=== PATIENT | female | born 1960 | race Caucasian/White ===

== ENCOUNTER 2017-08-16 13:51 | Observation (INO) | payer MEDICAID ==
[2017-08-16] MEDS ORDERED: NITROGLYCERIN OINT 1 INCH/GM PACKET TOPICAL STA (14:33)
[2017-08-16] MEDS ORDERED: ASPIRIN 81 MG PO STA (14:33)
--- NOTE | 2017-08-16 14:43 | ED ---
General Adult HPI - General Chief complaint: Chest Pain Stated complaint: chest heaviness/high blood pressure Time Seen by Provider: 08/16/17 13:55 Source: patient, RN notes reviewed Mode of arrival: ambulatory Limitations: no limitations - History of Present Illness Initial comments: This is a 57-year-old female who has a past medical history significant for high blood pressure and smoking. Patient states today at 12:30 she started to experience chest pain radiated to her back she became nauseated and it continued so she came to the emergency department. Patient denies any palpitations. Patient denies shortness of breath or difficulty breathing. Patient states the pain is continuing currently. Patient denies any recent fever chills or cough. Patient denies lightheadedness dizziness or near- syncopal episode. Patient denies headache patient denies numbness weakness. Patient denies abdominal pain patient denies any vomiting or diarrhea. - Related Data Home Medications Medication Instructions Recorded Confirmed ALPRAZolam [Xanax] 0.5 mg PO HS PRN 08/16/17 08/16/17 Aspirin EC [Ecotrin Low Dose] 81 mg PO DAILY 08/16/17 08/16/17 Butalb/APAP/Caff 50-325-40Mg 1 - 2 tab PO Q4H PRN 08/16/17 08/16/17 [Fioricet 50-325-40] Celecoxib [CeleBREX] 200 mg PO DAILY PRN 08/16/17 08/16/17 Citalopram Hydrobromide [CeleXA] 20 mg PO DAILY 08/16/17 08/16/17 HYDROcodone/APAP 7.5-325MG [[place] 1 tab PO TID PRN 08/16/17 08/16/17 7.5-325] Losartan/Hydrochlorothiazide 1 tab PO DAILY 08/16/17 08/16/17 [Hyzaar 50-12.5 Tablet] Metoclopramide [Reglan] 10 mg PO QID PRN 08/16/17 08/16/17 Nitroglycerin Sl Tabs [Nitrostat] 0.4 mg SUBLINGUAL Q5M PRN 08/16/17 08/16/17 Ondansetron [Zofran] 4 mg PO Q6H PRN 08/16/17 08/16/17 Allergies Allergy/AdvReac Type Severity Reaction Status Date / Time aspirin AdvReac Nausea Verified 08/16/17 14:36 Review of Systems ROS Statement: Those systems with pertinent positive or pertinent negative responses have been documented in the HPI. ROS Other: All systems not noted in ROS Statement are negative. Past Medical History Past Medical History: GERD/Reflux, Hypertension Additional Past Medical History / Comment(s): Hernia, diverticulitous History of Any Multi-Drug Resistant Organisms: None Reported Additional Past Surgical History / Comment(s): partial hysto Past Psychological History: No Psychological Hx Reported Smoking Status: Current every day smoker Past Alcohol Use History: Occasional Past Drug Use History: None Reported General Exam - General Exam Comments Initial Comments: GENERAL: Patient is well-developed and well-nourished. Patient is nontoxic and well- hydrated and is in mild distress. ENT: Neck is soft and supple. No significant lymphadenopathy is noted. Oropharynx is clear. Moist mucous membranes. Neck has full range of motion without eliciting any pain. EYES: The sclera were anicteric and conjunctiva were pink and moist. Extraocular movements were intact and pupils were equal round and reactive to light. Eyelids were unremarkable. PULMONARY: Unlabored respirations. Good breath sounds bilaterally. No audible rales rhonchi or wheezing was noted. CARDIOVASCULAR: There is a regular rate and rhythm without any murmurs gallops or rubs. ABDOMEN: Soft and nontender with normal bowel sounds. No palpable organomegaly was noted. There is no palpable pulsatile mass. SKIN: Skin is clear with no lesions or rashes and otherwise unremarkable. NEUROLOGIC: Patient is alert and oriented x3. Cranial nerves II through XII are grossly intact. Motor and sensory are also intact. Normal speech, volume and content. Symmetrical smile. MUSCULOSKELETAL: Normal extremities with adequate strength and full range of motion. No lower extremity swelling or edema. No calf tenderness. LYMPHATICS: No significant lymphadenopathy is noted PSYCHIATRIC: Normal psychiatric evaluation. Normal interpersonal interactions appears functionally intact in deals appropriately with others. Limitations: no limitations Course Vital Signs 08/16/17 08/16/17 08/16/17 13:52 14:29 15:18 Temperature 98.6 F Pulse Rate 105 H 96 Pulse Rate [ 96 Sitting Apical] Respiratory 18 18 Rate Blood Pressure 171/85 136/85 O2 Sat by Pulse 96 96 Oximetry Medical Decision Making - Medical Decision Making EKG shows sinus tachycardia at 101 bpm NV interval is 174 QRS is 118 QT interval 358 QTC is 464. Patient's EKG shows a right bundle gunner block. There are no old EKGs to compare to. Chest x-ray shows no acute abnormality. Patient continues to have some chest pain while in the ER that in combination with her smoking high blood pressure history I placed the patient on heparin because it qualifies for unstable angina. I spoke with Dr. Mcdaniel he agreed to admit the patient admitted the patient I consult to cardiology I continued heparin and aspirin Nitropaste on the floor. - Lab Data Result diagrams: 08/16/17 14:25 08/16/17 14:25 Lab Results 08/16/17 08/16/17 08/16/17 Range/Units 14:25 14:25 14:25 WBC 7.3 (3.8-10.6) k/uL RBC 4.45 (3.80-5.40) m/uL Hgb 14.1 (11.4-16.0) gm/dL Hct 42.7 (34.0-46.0) % MCV 95.9 (80.0-100.0) fL MCH 31.7 (25.0-35.0) pg MCHC 33.0 (31.0-37.0) g/dL RDW 12.9 (11.5-15.5) % Plt Count 225 (150-450) k/uL Neutrophils % 67 % Lymphocytes % 26 % Monocytes % 5 % Eosinophils % 1 % Basophils % 1 % Neutrophils # 4.8 (1.3-7.7) k/uL Lymphocytes # 1.9 (1.0-4.8) k/uL Monocytes # 0.3 (0-1.0) k/uL Eosinophils # 0.1 (0-0.7) k/uL Basophils # 0.0 (0-0.2) k/uL PT (9.0-12.0) sec INR (<1.2) APTT (22.0-30.0) sec Sodium 140 (137-145) mmol/L Potassium 4.2 (3.5-5.1) mmol/L Chloride 105 (98-107) mmol/L Carbon Dioxide 23 (22-30) mmol/L Anion Gap 12 mmol/L BUN 9 (7-17) mg/dL Creatinine 0.83 (0.52-1.04) mg/dL Est GFR (MDRD) Af Amer >60 (>60 ml/min/1.73 sqM) Est GFR (MDRD) Non-Af >60 (>60 ml/min/1.73 sqM) Glucose 108 H (74-99) mg/dL Calcium 10.2 (8.4-10.2) mg/dL Magnesium 1.7 (1.6-2.3) mg/dL Total Bilirubin 0.3 (0.2-1.3) mg/dL AST 22 (14-36) U/L ALT 27 (9-52) U/L Alkaline Phosphatase 105 (38-126) U/L Total Creatine Kinase 76 (30-135) U/L CK-MB (CK-2) 0.5 (0.0-2.4) ng/mL CK-MB (CK-2) Rel Index 0.7 Troponin I <0.012 (0.000-0.034) ng/mL Total Protein 7.6 (6.3-8.2) g/dL Albumin 4.7 (3.5-5.0) g/dL 08/16/17 Range/Units 14:25 WBC (3.8-10.6) k/uL RBC (3.80-5.40) m/uL Hgb (11.4-16.0) gm/dL Hct (34.0-46.0) % MCV (80.0-100.0) fL MCH (25.0-35.0) pg MCHC (31.0-37.0) g/dL RDW (11.5-15.5) % Plt Count (150-450) k/uL Neutrophils % % Lymphocytes % % Monocytes % % Eosinophils % % Basophils % % Neutrophils # (1.3-7.7) k/uL Lymphocytes # (1.0-4.8) k/uL Monocytes # (0-1.0) k/uL Eosinophils # (0-0.7) k/uL Basophils # (0-0.2) k/uL PT 9.8 (9.0-12.0) sec INR 1.0 (<1.2) APTT 25.6 (22.0-30.0) sec Sodium (137-145) mmol/L Potassium (3.5-5.1) mmol/L Chloride (98-107) mmol/L Carbon Dioxide (22-30) mmol/L Anion Gap mmol/L BUN (7-17) mg/dL Creatinine (0.52-1.04) mg/dL Est GFR (MDRD) Af Amer (>60 ml/min/1.73 sqM) Est GFR (MDRD) Non-Af (>60 ml/min/1.73 sqM) Glucose (74-99) mg/dL Calcium (8.4-10.2) mg/dL Magnesium (1.6-2.3) mg/dL Total Bilirubin (0.2-1.3) mg/dL AST (14-36) U/L ALT (9-52) U/L Alkaline Phosphatase (38-126) U/L Total Creatine Kinase (30-135) U/L CK-MB (CK-2) (0.0-2.4) ng/mL CK-MB (CK-2) Rel Index Troponin I (0.000-0.034) ng/mL Total Protein (6.3-8.2) g/dL Albumin (3.5-5.0) g/dL Critical Care Time Critical Care Time: Yes Total Critical Care Time: 35 Disposition Clinical Impression: Unstable angina pectoris Disposition: ADMITTED IP TO THIS HOSP Referrals: Nolan Mcdaniel DO [Primary Care Provider] - 1-2 days Time of Disposition: 16:41
[2017-08-16 14:45] LABS: Basophils % (A) 1 %; Eosinophils # (A) 0.1 k/uL (0-0.7); Eosinophils % (A) 1 %; HCT 42.7 % (34.0-46.0); HGB 14.1 gm/dL (11.4-16.0); Lymphocytes # (A) 1.9 k/uL (1.0-4.8); Lymphocytes % (A) 26 %; MCH 31.7 pg (25.0-35.0); MCV 95.9 fL (80.0-100.0); Mean Platelet Volume 7.4; Monocytes # (A) 0.3 k/uL (0-1.0); Monocytes % (A) 5 %; Neutrophils # (A) 4.8 k/uL (1.3-7.7); Neutrophils % (A) 67 %; Platelet Count 225 k/uL (150-450); RBC 4.45 m/uL (3.80-5.40); RDW 12.9 % (11.5-15.5); WBC 7.3 k/uL (3.8-10.6)
[2017-08-16 14:54] LABS: ALT 27 U/L (9-52); AST 22 U/L (14-36); Albumin 4.7 g/dL (3.5-5.0); Alkaline Phosphatase 105 U/L (38-126); Anion Gap 12 mmol/L; Blood Urea Nitrogen 9 mg/dL (7-17); Calcium 10.2 mg/dL (8.4-10.2); Carbon Dioxide 23 mmol/L (22-30); Chloride 105 mmol/L (98-107); Glucose 108 mg/dL (74-99); Magnesium 1.7 mg/dL (1.6-2.3); Partial Thromboplastin Time 25.6 sec (22.0-30.0); Potassium 4.2 mmol/L (3.5-5.1); Prothrombin Time 9.8 sec (9.0-12.0); Sodium 140 mmol/L (137-145); Total Bilirubin 0.3 mg/dL (0.2-1.3); Total Protein 7.6 g/dL (6.3-8.2)
--- NOTE | 2017-08-16 15:04 | XR ---
EXAMINATION TYPE: XR chest 2V DATE OF EXAM: 08/16/2017 COMPARISON: 05/10/2011 HISTORY: Shortness of breath TECHNIQUE: Frontal and lateral views of the chest are obtained. FINDINGS: Scattered senescent parenchymal changes noted. No evidence for infiltrate. No evidence for atelectasis. Heart size is stable. Mediastinal structures are stable and grossly unremarkable. No evidence for hilar prominence. Degenerative changes dorsal spine. IMPRESSION: 1. No evidence for acute pulmonary disease.
[2017-08-16 15:09] LABS: Creatine Kinase 76 U/L (30-135)
[2017-08-16 15:23] LABS: Creatine Kinase MB 0.5 ng/mL (0.0-2.4); Troponin I <0.012 ng/mL (0.000-0.034)
[2017-08-16] MEDS ORDERED: HEPARIN SODIUM,PORCINE 5,000 UNIT/ML 1 ML VIAL IV ONE (16:37)
[2017-08-16] MEDS ORDERED: MORPHINE SULFATE 2 MG/ML SYRINGE IVP ONE (16:39)
[2017-08-16] MEDS ORDERED: NITROGLYCERIN SL TABS 0.4 MG TAB SUBLINGUAL PRN (16:41)
[2017-08-16] MEDS ORDERED: HEPARIN SOD,PORK IN 0.45% NACL 25,000 UNIT in 0.45% NACL 1 500ML.BAG IV SCH (16:45)
[2017-08-16 18:01] VITALS: RESP 18
[2017-08-16] MEDS ORDERED: MELOXICAM 7.5 MG TAB PO PRN (18:34)
[2017-08-16] MEDS ORDERED: METOCLOPRAMIDE 10 MG TAB PO PRN (18:34)
[2017-08-16] MEDS ORDERED: BUTALB/APAP/CAFF 50-325-40MG TAB PO PRN (18:34)
[2017-08-16] MEDS ORDERED: ALPRAZolam 0.5 MG TAB PO PRN (18:34)
[2017-08-16] MEDS: NITROGLYCERIN OINT 1 INCH/GM PACKET TOPICAL SCH (19:26)
[2017-08-16] MEDS: HYDROcodone/APAP 7.5-325MG 1 EACH TAB PO PRN (19:30)
[2017-08-16] MEDS: NICOTINE 21MG/24HR PATCH TRANSDERM SCH (20:56)
[2017-08-16 21:39] LABS: Creatine Kinase 58 U/L (30-135)
[2017-08-16 21:53] LABS: Creatine Kinase MB 0.3 ng/mL (0.0-2.4); Troponin I <0.012 ng/mL (0.000-0.034)
[2017-08-17] MEDS: NITROGLYCERIN OINT 1 INCH/GM PACKET TOPICAL SCH ×2 (00:57→05:56)
[2017-08-17] MEDS: HYDROcodone/APAP 7.5-325MG 1 EACH TAB PO PRN ×2 (02:28→11:29)
[2017-08-17 03:52] LABS: Creatine Kinase 54 U/L (30-135)
[2017-08-17 03:54] LABS: Cholesterol 160 mg/dL (<200); HDL Cholesterol 45 mg/dL (40-60); LDL Cholesterol,Calculated 82 mg/dL (0-99); Triglycerides 165 mg/dL (<150)
[2017-08-17 04:06] LABS: Creatine Kinase MB 0.4 ng/mL (0.0-2.4); Troponin I <0.012 ng/mL (0.000-0.034)
[2017-08-17] MEDS ORDERED: LOSARTAN-HCTZ 50-12.5 MG 1 EACH TAB PO SCH (09:00)
[2017-08-17] MEDS ORDERED: CITALOPRAM HYDROBROMIDE 20 MG TAB PO SCH (09:00)
[2017-08-17] MEDS ORDERED: ASPIRIN 325 MG TAB PO SCH (09:00)
[2017-08-17] MEDS ORDERED: ASPIRIN 81 MG PO SCH (09:00)
--- NOTE | 2017-08-17 10:01 | P.CRDCN ---
History of Present Illness Consult date: 08/17/17 History of present illness: Mrs. Fuentes is a pleasant 57-year-old female with past medical history significant for hypertension, gastroesophageal reflux disease and chronic tobacco abuse. She denies history of coronary artery disease and has never seen a pharmacy clinical coordinator for any reason. Over the previous couple of weeks she has been having elevated blood pressures at home as well as tingling to the left fingers and hand. This is was new for her. She presented to Dr. Mcdaniel' office and was started on hyzaar and scheduled for an outpatient stress test. Yesterday while at rest she developed pain in the mid-sternal region that radiated through to her mid-back. She denies associated shortness of breath, dizziness, palpitations, diaphoresis, nausea or vomiting. The pain lasted for a few hours and ultimately went away on its own after arriving at the hospital. Blood pressure on arrival 171/85 but has come down since admission to 128/65 this morning. She also complains of diffuse abdominal pain that has been intermittent over the previous few months. Medical team is checking an ultrasound. EKG reveals right bundle branch block with possible left atrial enlargement. There is no old for comparison. Chest xray is negative for an acute cardiopulmonary process. Laboratory data reviewed, hemoglobin 14.1, platelets 225, potassium 4.2, magnesium 1.7, creatinine 0.83, cardiac enzymes negative 3, LDL 82, HDL 45. There is no old stress test, echocardiogram or catheterization to review. Review of Systems At the time of my exam: CONSTITUTIONAL: Denies fever. Denies chills. EYES: Denies blurred vision. Denies vision changes. Denies eye pain. EARS, NOSE, MOUTH & THROAT: Denies headache. Denies sore throat. Denies ear pain. CARDIOVASCULAR: Denies chest pain. Denies shortness of breath. Denies orthopnea. Denies PND. Denies palpitations. RESPIRATORY: Denies cough. GASTROINTESTINAL: Complains of abdominal pain. Denies diarrhea. Denies constipation. Denies nausea. Denies vomiting. MUSCULOSKELETAL: Denies myalgias. INTEGUMENTARY: Denies pruitis. Denies rash. NEUROLOGIC: Denies numbness. Denies tingling. Denies weakness. PSYCHIATRIC: Denies anxiety. Denies depression. ENDOCRINE: Denies fatigue. Denies weight change. Denies polydipsia. Denies polyurina. GENITOURINARY: Denies burning, hematuria or urgency with micturation. HEMATOLOGIC: Denies history of anemia. Denies bleeding. Past Medical History Past Medical History: GERD/Reflux, Hypertension, Osteoarthritis (OA), Pneumonia Additional Past Medical History / Comment(s): , gastroparesis. "was told she had shingles as a baby and was hospitalizes" hiatal Hernia, diverticulitous, coloitis, cervical caner 1989(had laser sx) endometreosis(partail hysterectomy done) History of Any Multi-Drug Resistant Organisms: None Reported Additional Past Surgical History / Comment(s): partial hysterectomy, egd/ colonoscopy/polypectomy-benign, few d&c's from miscarriages,laser sx for cervical cancer Past Anesthesia/Blood Transfusion Reactions: No Reported Reaction Smoking Status: Current every day smoker - Past Family History Mother Family Medical History: Cancer Additional Family Medical History / Comment(s): lung/colon cancer Father Family Medical History: AFIB, Congestive Heart Failure (CHF), COPD, Hypertension , Osteoarthritis (OA) Medications and Allergies Home Medications Medication Instructions Recorded Confirmed Type ALPRAZolam [Xanax] 0.5 mg PO HS PRN 08/16/17 08/16/17 History Aspirin EC [Ecotrin Low Dose] 81 mg PO DAILY 08/16/17 08/16/17 History Butalb/APAP/Caff 50-325-40Mg 1 - 2 tab PO Q4H PRN 08/16/17 08/16/17 History [Fioricet 50-325-40] Celecoxib [CeleBREX] 200 mg PO DAILY PRN 08/16/17 08/16/17 History Citalopram Hydrobromide [CeleXA] 20 mg PO DAILY 08/16/17 08/16/17 History HYDROcodone/APAP 7.5-325MG [[place] 1 tab PO TID PRN 08/16/17 08/16/17 History 7.5-325] Losartan/Hydrochlorothiazide 1 tab PO DAILY 08/16/17 08/16/17 History [Hyzaar 50-12.5 Tablet] Metoclopramide [Reglan] 10 mg PO QID PRN 08/16/17 08/16/17 History Nitroglycerin Sl Tabs [Nitrostat] 0.4 mg SUBLINGUAL Q5M PRN 08/16/17 08/16/17 History Ondansetron [Zofran] 4 mg PO Q6H PRN 08/16/17 08/16/17 History Allergies Allergy/AdvReac Type Severity Reaction Status Date / Time aspirin AdvReac Nausea Verified 08/16/17 14:36 Physical Exam Vitals: Vital Signs Temp Pulse Pulse Pulse Resp BP BP 08/17/17 07:54 98.2 F 75 18 128/65 08/17/17 04:00 97.9 F 74 18 105/59 08/16/17 23:51 97.6 F 73 18 105/60 08/16/17 23:11 70 18 08/16/17 20:00 82 18 08/16/17 19:34 97.8 F 82 18 120/66 08/16/17 17:40 98.0 F 88 18 126/71 08/16/17 17:03 97.9 F 89 16 148/79 08/16/17 17:01 98 F 87 18 106/56 08/16/17 16:41 08/16/17 15:18 96 18 136/85 08/16/17 14:29 96 08/16/17 13:52 98.6 F 105 H 18 171/85 Pulse Ox 08/17/17 07:54 97 08/17/17 04:00 98 08/16/17 23:51 97 08/16/17 23:11 08/16/17 20:00 08/16/17 19:34 93 L 08/16/17 17:40 97 08/16/17 17:03 97 08/16/17 17:01 97 08/16/17 16:41 96 08/16/17 15:18 96 08/16/17 14:29 08/16/17 13:52 96 Intake and Output 08/16/17 08/17/17 08/17/17 22:59 06:59 14:59 Intake Total 440 122.032 Balance 440 122.032 Intake: Intake, IV Titration 122.032 Amount Heparin Sod,Pork in 0.45% 122.032 NaCl 25,000 unit In 0.45 % NaCl 1 500ml.bag @ 12 UNITS/KG/HR 15.78 mls/hr IV .Q24H [facility] Rx#: [id number] Oral 240 Other 200 Other: # Voids 3 Weight 68.5 kg Blood pressure 120/65 heart rate 75 afebrile GENERAL: This is a 57-year-old female in no apparent distress at the time of my examination. HEENT: Head is atraumatic, normocephalic. Pupils are equal, round. Sclerae anicteric. Conjunctivae are clear. Mucous membranes of the mouth are moist. Neck is supple. There is no jugular venous distention. No carotid bruit is heard. LUNGS: Clear to auscultation no wheezes, rales or rhonchi. Minimal chest wall tenderness is noted on palpation. HEART: Regular rate and rhythm without murmurs, rubs or gallops. S1 and S2 heard. ABDOMEN: Soft, nontender. Bowel sounds are heard. No organomegaly noted. EXTREMITIES: No evidence of peripheral edema and no calf tenderness noted. VASCULAR: 2+ radial and dorsalis pedis pulses, no clubbing. NEUROLOGIC: Patient is awake, alert and oriented x3. Results 08/16/17 14:25 08/16/17 14:25 Cardiac Enzymes 08/16/17 08/16/17 08/16/17 Range/Units 14:25 14:25 20:43 AST 22 (14-36) U/L CK-MB (CK-2) 0.5 0.3 (0.0-2.4) ng/mL Troponin I <0.012 <0.012 (0.000-0.034) ng/mL 08/17/17 Range/Units 02:54 AST (14-36) U/L CK-MB (CK-2) 0.4 (0.0-2.4) ng/mL Troponin I <0.012 (0.000-0.034) ng/mL Coagulation 08/16/17 08/16/17 08/17/17 Range/Units 14:25 23:21 06:52 PT 9.8 (9.0-12.0) sec APTT 25.6 40.8 H 44.0 H (22.0-30.0) sec Lipids 08/17/17 Range/Units 02:54 Triglycerides 165 H (<150) mg/dL Cholesterol 160 (<200) mg/dL HDL Cholesterol 45 (40-60) mg/dL CBC 08/16/17 Range/Units 14:25 WBC 7.3 (3.8-10.6) k/uL RBC 4.45 (3.80-5.40) m/uL Hgb 14.1 (11.4-16.0) gm/dL Hct 42.7 (34.0-46.0) % Plt Count 225 (150-450) k/uL Comprehensive Metabolic Panel 08/16/17 Range/Units 14:25 Sodium 140 (137-145) mmol/L Potassium 4.2 (3.5-5.1) mmol/L Chloride 105 (98-107) mmol/L Carbon Dioxide 23 (22-30) mmol/L BUN 9 (7-17) mg/dL Creatinine 0.83 (0.52-1.04) mg/dL Glucose 108 H (74-99) mg/dL Calcium 10.2 (8.4-10.2) mg/dL AST 22 (14-36) U/L ALT 27 (9-52) U/L Alkaline Phosphatase 105 (38-126) U/L Total Protein 7.6 (6.3-8.2) g/dL Albumin 4.7 (3.5-5.0) g/dL Current Medications Generic Name Dose Route Start Last Admin Trade Name Freq PRN Reason Stop Dose Admin Acetaminophen/Butalbital/Caffeine 2 each 08/16/17 18:34 Fioricet 50-325-40 PO Q4H PRN Headache Hydrocodone Bitart/Acetaminophen 1 each 08/16/17 18:34 08/17/17 02:28 [place] 7.5-325 PO 1 each TID PRN Administration Pain Alprazolam 0.5 mg 08/16/17 18:34 08/16/17 20:59 Xanax PO 0.5 mg HS PRN Administration sleep/anxiety Aspirin 81 mg 08/17/17 09:00 Aspirin PO DAILY [facility] Citalopram Hydrobromide 20 mg 08/17/17 09:00 Celexa PO DAILY [facility] HCTZ/Losartan Potassium 1 each 08/17/17 09:00 Hyzaar 50-12.5 PO DAILY [facility] Heparin Sodium/Sodium Chloride 500 mls @ 15.78 mls/hr 08/16/17 16:45 00:59 25,000 unit/ Sodium Chloride IV 14.06 units/kg/hr .Q24H [facility] 18.5 mls/hr Protocol Titration 12 UNITS/KG/HR Meloxicam 7.5 mg 08/16/17 18:34 Mobic PO DAILY PRN Pain Metoclopramide HCl 10 mg 08/16/17 18:34 Reglan PO QID PRN Nausea Nicotine 1 patch 08/16/17 19:45 08/16/17 20:56 Habitrol 21mg/24hr Patch TRANSDERM 1 patch DAILY [facility] Administration Nitroglycerin 1 inch 08/16/17 18:00 08/17/17 05:56 Nitro-Bid Oint TOPICAL Not Given Q6HR [facility] Nitroglycerin 0.4 mg 08/16/17 16:41 Nitrostat SUBLINGUAL Q5M PRN Chest Pain Intake and Output 08/16/17 08/17/17 08/17/17 22:59 06:59 14:59 Intake Total 440 122.032 Balance 440 122.032 Intake: Intake, IV Titration 122.032 Amount Heparin Sod,Pork in 0.45% 122.032 NaCl 25,000 unit In 0.45 % NaCl 1 500ml.bag @ 12 UNITS/KG/HR 15.78 mls/hr IV .Q24H [facility] Rx#: [id number] Oral 240 Other 200 Other: # Voids 3 Weight 68.5 kg 08/16/17 14:25 08/16/17 14:25 Assessment and Plan Assessment: ASSESSMENT 1. Chest pain, atypical. Acute coronary event has been ruled out. 2. Hypertension 3. Chronic tobacco abuse PLAN Discontinue heparin and nitropaste. Obtain 2D echocardiogram and doppler study to assess cardiac structure and function. Perform stress echocardiogram to rule out stress induced ischemia. If above diagnostic testing is normal she is stable from a cardiac perspective. Thank you kindly for this consultation. The above impression and plan of care have been discussed and directed by the signing physician. Bibi Dennis, nurse practitioner, acting as a scribe for signing physician.
--- NOTE | 2017-08-17 10:17 | ECHOF ---
Referral Reason:chest pain MEASUREMENTS -------- HEIGHT: 154.9 cm WEIGHT: 68.5 kg BP: 128/65 RVIDd: 2.6 cm (< 3.3) IVSd: 1.1 cm (0.6 - 1.1) LVIDd: 4.2 cm (3.9 - 5.3) LVPWd: 1.2 cm (0.6 - 1.1) IVSs: 1.6 cm LVIDs: 2.6 cm LVPWs: 1.5 cm LA Diam: 2.7 cm (2.7 - 3.8) LAESV Index (A-L): 19.87 ml/m Ao Diam: 2.9 cm (2.0 - 3.7) AV Cusp: 1.9 cm (1.5 - 2.6) MV EXCURSION: 16.638 mm (> 18.000) MV EF SLOPE: 126 mm/s (70 - 150) EPSS: 0.5 cm MV E Donald: 0.75 m/s MV DecT: 182 ms MV A Donald: 0.80 m/s MV E/A Ratio: 0.94 FINDINGS -------- Sinus rhythm. This was a technically good study. The left ventricular size is normal. There is borderline concentric left ventricular hypertrophy. Overall left ventricular systolic function is normal with, an EF between 55 - 60 %. The right ventricle is normal in size. Normal LA size by volume 22+/-6 ml/m2. The right atrium is normal in size. The aortic valve is trileaflet and appears structurally normal. The mitral valve is normal. The tricuspid valve appears structurally normal. There is no pulmonic regurgitation present. The aortic root size is normal. Normal inferior vena cava with normal inspiratory collapse consistent with estimated right atrial pre ssure of 5 mmHg. There is no pericardial effusion. CONCLUSIONS -------- 1. Sinus rhythm. 2. This was a technically good study. 3. The left ventricular size is normal. 4. There is borderline concentric left ventricular hypertrophy. 5. Overall left ventricular systolic function is normal with, an EF between 55 - 60 %. 6. The right ventricle is normal in size. 7. Normal LA size by volume 22+/-6 ml/m2. 8. The right atrium is normal in size. 9. The aortic valve is trileaflet and appears structurally normal. 10. The mitral valve is normal. 11. The tricuspid valve appears structurally normal. 12. There is no pulmonic regurgitation present. 13. The aortic root size is normal. 14. Normal inferior vena cava with normal inspiratory collapse consistent with estimated right atrial pressure of 5 mmHg. 15. There is no pericardial effusion. SALES RESEARCH ANALYST: Monae Vidal RDCS
[2017-08-17] MEDS ORDERED: FAMOTIDINE 20 MG TAB PO STA (10:22)
--- NOTE | 2017-08-17 10:23 | P.HPIM ---
History of Present Illness H&P Date: 08/17/17 Chief Complaint: Chest pain 57-year-old female who presented to emergency room in December or 2017 with a chief complaint of chest pain. The patient was seen recently by her primary care physician for complaints of intermittent chest pain 2-3 months. She was scheduled for an outpatient stress test. However, the patient began to have more intense chest pain yesterday and presents to emergency room for further evaluation. She states the pain is midsternal and does not radiate. She also complains of abdominal pain and epigastric pain. She denies shortness of breath. Denies diaphoresis. Denies nausea or vomiting. Denies dizziness or lightheadedness. The patient has a history of gastroesophageal reflux disease, hypertension, and diverticulosis. She has a history of multiple colitis flare ups. She is a current everyday cigarette smoker. In the emergency room, EKG was completed revealing sinus tachycardia with a right bundle ranch block. Chest x-ray was performed which was negative for an acute process. The patient was admitted to observation unit under the care of Dr. Mcdaniel. Consultations were placed to cardiology. She was started on a heparin drip. Laboratory results in the emergency room revealed white count of 7.3, hemoglobin 14.1, platelet count 225, INR 1.0, sodium 140, potassium 4.2, BUN 9, creatinine 0.83, and magnesium 1.7. Troponins have been negative 3. Lipid panel reveals triglycerides 165, cholesterol 160, LDL 82, and HDL 45. Review of Systems GENERAL: Patient denies fever. Denies chills. EYES: Denies blurred vision. Denies vision changes. Denies eye pain. EARS, NOSE, MOUTH, & THROAT: Denies headache. Denies sore throat. Denies ear pain. RESPIRATORY: Denies cough. Denies shortness of breath. Denies sputum production. Denies hemoptysis. CARDIOVASCULAR: Positive for intermittent midsternal chest pain. Denies palpitations. Denies arrhythmias. GASTROINTESTINAL: Positive for history of GERD. Positive for epigastric pain and abdominal pain. Denies diarrhea. Denies constipation. Denies nausea. Denies vomiting. Denies blood in the stool. GENITOURINARY: Denies urinary frequency. Denies burning. Denies dysuria. Denies cloudy urine. Denies blood in the urine. MUSCULOSKELETAL: Denies myalgias. Denies joint swelling. Denies decreased range of motion beyond patients baseline. INTEGUMENTARY: Denies pruitis. Denies rash. PSYCHIATRIC: Positive for history of anxiety. Denies suicidal or homicial ideations. ENDOCRINE: Denies weight change. Denies polydipsia. Denies polyuria. HEMATOLOGIC: Denies bleeding disorders. Past Medical History Past Medical History: GERD/Reflux, Hypertension, Osteoarthritis (OA), Pneumonia Additional Past Medical History / Comment(s): , gastroparesis. "was told she had shingles as a baby and was hospitalizes" hiatal Hernia, diverticulitous, coloitis, cervical caner 1989(had laser sx) endometreosis(partail hysterectomy done) History of Any Multi-Drug Resistant Organisms: None Reported Additional Past Surgical History / Comment(s): partial hysterectomy, egd/ colonoscopy/polypectomy-benign, few d&c's from miscarriages,laser sx for cervical cancer Past Anesthesia/Blood Transfusion Reactions: No Reported Reaction Smoking Status: Current every day smoker - Past Family History Mother Family Medical History: Cancer Additional Family Medical History / Comment(s): lung/colon cancer Father Family Medical History: AFIB, Congestive Heart Failure (CHF), COPD, Hypertension , Osteoarthritis (OA) Medications and Allergies Home Medications Medication Instructions Recorded Confirmed Type ALPRAZolam [Xanax] 0.5 mg PO HS PRN 08/16/17 08/16/17 History Aspirin EC [Ecotrin Low Dose] 81 mg PO DAILY 08/16/17 08/16/17 History Butalb/APAP/Caff 50-325-40Mg 1 - 2 tab PO Q4H PRN 08/16/17 08/16/17 History [Fioricet 50-325-40] Celecoxib [CeleBREX] 200 mg PO DAILY PRN 08/16/17 08/16/17 History Citalopram Hydrobromide [CeleXA] 20 mg PO DAILY 08/16/17 08/16/17 History HYDROcodone/APAP 7.5-325MG [[place] 1 tab PO TID PRN 08/16/17 08/16/17 History 7.5-325] Losartan/Hydrochlorothiazide 1 tab PO DAILY 08/16/17 08/16/17 History [Hyzaar 50-12.5 Tablet] Metoclopramide [Reglan] 10 mg PO QID PRN 08/16/17 08/16/17 History Nitroglycerin Sl Tabs [Nitrostat] 0.4 mg SUBLINGUAL Q5M PRN 08/16/17 08/16/17 History Ondansetron [Zofran] 4 mg PO Q6H PRN 08/16/17 08/16/17 History Allergies Allergy/AdvReac Type Severity Reaction Status Date / Time aspirin AdvReac Nausea Verified 08/16/17 14:36 Physical Exam Vitals: Vital Signs Temp Pulse Pulse Pulse Resp BP BP 08/17/17 07:54 98.2 F 75 18 128/65 08/17/17 04:00 97.9 F 74 18 105/59 08/16/17 23:51 97.6 F 73 18 105/60 08/16/17 23:11 70 18 08/16/17 20:00 82 18 08/16/17 19:34 97.8 F 82 18 120/66 08/16/17 17:40 98.0 F 88 18 126/71 08/16/17 17:03 97.9 F 89 16 148/79 08/16/17 17:01 98 F 87 18 106/56 08/16/17 16:41 08/16/17 15:18 96 18 136/85 08/16/17 14:29 96 08/16/17 13:52 98.6 F 105 H 18 171/85 Pulse Ox 08/17/17 07:54 97 08/17/17 04:00 98 08/16/17 23:51 97 08/16/17 23:11 08/16/17 20:00 08/16/17 19:34 93 L 08/16/17 17:40 97 08/16/17 17:03 97 08/16/17 17:01 97 08/16/17 16:41 96 08/16/17 15:18 96 08/16/17 14:29 08/16/17 13:52 96 Intake and Output 08/16/17 08/17/17 08/17/17 22:59 06:59 14:59 Intake Total 440 122.032 Balance 440 122.032 Intake: Intake, IV Titration 122.032 Amount Heparin Sod,Pork in 0.45% 122.032 NaCl 25,000 unit In 0.45 % NaCl 1 500ml.bag @ 12 UNITS/KG/HR 15.78 mls/hr IV .Q24H LARISA Rx#: [id number] Oral 240 Other 200 Other: # Voids 3 Weight 68.5 kg GENERAL: This is a 57-year-old female in no apparent distress at the time of examination. Pleasant and cooperative. HEENT: Head is atraumatic, normocephalic. Pupils are equal, round, and reactive to light. Sclerae anicteric. Conjunctivae are clear. Mucus membranes of the mouth are moist. Neck is supple. RESPIRATORY: Clear to ausculation. No wheezes, rales, or rhonchi. No use of accessory muscles. Patient maintaining oxygen saturation greater than 92%. No chest wall tenderness is noted on palpation or with deep breathing. CARDIOVASCULAR: Regular rate and rhythm. S1 and S2 noted. No systolic or diastolic murmur auscultated. No JVD noted. No S3 or S4 noted. GASTROINTESTINAL: No distention noted. Abdomen soft and round. Normal active bowel sounds auscultated x 4 quadrants. Pain and tenderness noted upon palpation of right upper and lower quadrants and epigastric region. INTEGUMENTARY: No cyanosis. No jaundice. No rashes noted. No cellulitis noted. EXTREMITIES: 2+ peripheral pulses. No evidence of peripheral edema. No calf tenderness noted. NEUROLOGIC: Cranial nerves II-XII intact. PSYCHIATRIC: Awake, alert, and oriented X 3. Appropriate affect. Intact judgement and insight. Results CBC & Chem 7: 08/16/17 14:25 08/16/17 14:25 Labs: Abnormal Lab Results - Last 24 Hours (Table) 08/16/17 08/16/17 08/17/17 Range/Units 14:25 23:21 02:54 APTT 40.8 H (22.0-30.0) sec Glucose 108 H (74-99) mg/dL Triglycerides 165 H (<150) mg/dL 08/17/17 Range/Units 06:52 APTT 44.0 H (22.0-30.0) sec Glucose (74-99) mg/dL Triglycerides (<150) mg/dL Thrombosis Risk Factor Assmnt - Choose All That Apply Any of the Below Risk Factors Present?: Yes Each Factor Represents 1 point: Age 41-60 years, Obesity (BMI >25) Other Risk Factors: Yes Each Risk Factor Represents 2 Points: Malignancy Other congenital or acquired thrombophilia - If yes, enter type in comment: No Thrombosis Risk Factor Assessment Total Risk Factor Score: 4 Thrombosis Risk Factor Assessment Level: Moderate Risk Assessment and Plan Plan: ASSESSMENT: Midsternal chest pain, intermittent 2-3 months, troponins negative 3, rule out acute coronary syndrome Epigastric and abdominal pain, may be secondary to GERD, r/o gallbladder involvement Gastroesophageal reflux disease Essential hypertension Anxiety, unspecified History of nicotine dependence, patient is a current everyday cigarette smoker PLAN: -Cardiology on consult. Appreciate recommendations and input -Echo pending -Obtain ultrasound of gallbladder -Home meds as appropriate -Monitor labs -GI prophylaxis: Protonix 40mg po daily -DVT prophylaxis: Patient is currently on a heparin drip -Monitor vital signs and address as appropriate -Discharge planning: Patient to return home when stable -Further recommendations pending patient's course Nurse practitioner note has been reviewed by physician. Signing provider agrees with the documented findings, assessment, and plan of care.
--- NOTE | 2017-08-17 11:18 | US ---
EXAMINATION TYPE: US gallbladder DATE OF EXAM: 08/17/2017 COMPARISON: None CLINICAL HISTORY: abdominal pain. Epigastric pain, NPO EXAM MEASUREMENTS: Liver Length: 14.4 cm Gallbladder Wall: 0.2 cm CBD: 0.4 cm CHD: 0.5 cm Right Kidney: 9.4 x 4.6 x 4.5 cm Pancreas: Appears echogenic, main pancreatic duct = 0.7 mm Liver: wnl Gallbladder: wnl Evidence for sonographic Zurita's sign: neg CBD: wnl CHD: wnl Right Kidney: wnl IMPRESSION: No sonographic evidence of cholecystitis or cholelithiasis. If there is further clinical concern HIDA scan with CCK could be performed to evaluate for chronic cholecystitis and/or biliary dy skinesia.
--- NOTE | 2017-08-17 11:25 | ECHOS ---
STRESS ECHOCARDIOGRAM DATE OF SERVICE: 08/17/2017 INDICATIONS: Chest pain. MEDICATIONS: Xanax, aspirin, Celexa, Pepcid, Hyzaar, Reglan. BASELINE HEART RATE: 87 BASELINE BLOOD PRESSURE: 111/62 MAXIMUM HEART RATE: 144 MAXIMUM BLOOD PRESSURE: 123/62 85% MPHR: 139 100% MPHR: 164 METS: 5 MAXIMUM STAGE REACHED: I TOTAL EXERCISE TIME: 4 minutes. CLINICAL INFORMATION: Baseline EKG shows sinus rhythm with right bundle branch block. The patient exercised on Kelvin protocol for a total of 4 minutes achieving 5 METs, 87% of predicted maximal heart rate. Complained of atypical chest pain and the EKG remained unchanged. Baseline echo shows normal left ventricular size, wall motion and systolic function. Postexercise, there is normal hyperdynamic response of all segments of myocardium noted. CONCLUSIONS: 1. Poor exercise tolerance. 2. Inconclusive EKG part of the stress test due to baseline EKG abnormalities. 3. Negative stress echo. MMODL / IJN: [id number] /
[2017-08-17] MEDS: NICOTINE 21MG/24HR PATCH TRANSDERM SCH (11:27)
[2017-08-17 11:43] VITALS: BP 116/79; TEMP 98.1
--- NOTE | 2017-08-17 12:32 | P.DS ---
Providers Date of admission: 08/16/17 16:41 Expected date of discharge: 08/17/17 Attending physician: Nolan Mcdaniel Consults: 08/16/17 16:41 Consult Physician Urgent Consulting Provider: [facility] Consult Reason/Comments: Unstable angina Do you want consulting provider notified?: Yes Primary care physician: Nolan Mcdaniel [facility] Course: 57-year-old female who presented to emergency room in December or 2017 with a chief complaint of chest pain. The patient was seen recently by her primary care physician for complaints of intermittent chest pain 2-3 months. She was scheduled for an outpatient stress test. However, the patient began to have more intense chest pain yesterday and presents to emergency room for further evaluation. She states the pain is midsternal and does not radiate. She also complains of abdominal pain and epigastric pain. She denies shortness of breath. Denies diaphoresis. Denies nausea or vomiting. Denies dizziness or lightheadedness. The patient has a history of gastroesophageal reflux disease, hypertension, and diverticulosis. She has a history of multiple colitis flare ups. She is a current everyday cigarette smoker. In the emergency room, EKG was completed revealing sinus tachycardia with a right bundle ranch block. Chest x-ray was performed which was negative for an acute process. The patient was admitted to observation unit under the care of Dr. Mcdaniel. Consultations were placed to cardiology. She was started on a heparin drip. Laboratory results in the emergency room revealed white count of 7.3, hemoglobin 14.1, platelet count 225, INR 1.0, sodium 140, potassium 4.2, BUN 9, creatinine 0.83, and magnesium 1.7. Troponins have been negative 3. Lipid panel reveals triglycerides 165, cholesterol 160, LDL 82, and HDL 45. Patient underwent stress test which was negative. Patient also underwent ultrasound of the gallbladder which was negative. The patient was deemed stable for discharge. She is to follow up on an outpatient basis Discharge diagnosis Midsternal chest pain, intermittent 2-3 months, troponins negative 3, acute coronary syndrome ruled out Epigastric and abdominal pain, may be secondary to GERD, gallbladder involvement ruled out Gastroesophageal reflux disease Essential hypertension Anxiety, unspecified History of nicotine dependence, patient is a current everyday cigarette smoker Nurse practitioner note has been reviewed by physician. Signing provider agrees with the documented findings, assessment, and plan of care. Patient Condition at Discharge: Stable Plan - Discharge Summary Discharge Rx Participant: Yes New Discharge Prescriptions: New Pantoprazole [Protonix] 40 mg PO AC-BRKFST #30 tab Continue Losartan/Hydrochlorothiazide [Hyzaar 50-12.5 Tablet] 1 tab PO DAILY Ondansetron [Zofran] 4 mg PO Q6H PRN PRN Reason: Nausea Nitroglycerin Sl Tabs [Nitrostat] 0.4 mg SUBLINGUAL Q5M PRN PRN Reason: Chest Pain Metoclopramide [Reglan] 10 mg PO QID PRN PRN Reason: Nausea HYDROcodone/APAP 7.5-325MG [[place] 7.5-325] 1 tab PO TID PRN PRN Reason: Pain Citalopram Hydrobromide [CeleXA] 20 mg PO DAILY Celecoxib [CeleBREX] 200 mg PO DAILY PRN PRN Reason: Pain Butalb/APAP/Caff 50-325-40Mg [Fioricet 50-325-40] 1 - 2 tab PO Q4H PRN PRN Reason: Headache Aspirin EC [Ecotrin Low Dose] 81 mg PO DAILY ALPRAZolam [Xanax] 0.5 mg PO HS PRN PRN Reason: sleep/anxiety Discharge Medication List ALPRAZolam [Xanax] 0.5 mg PO HS PRN 08/16/17 [History] Aspirin EC [Ecotrin Low Dose] 81 mg PO DAILY 08/16/17 [History] Butalb/APAP/Caff 50-325-40Mg [Fior[place] 50-325-40] 1 - 2 tab PO Q4H PRN 08/16/17 [History] Celecoxib [CeleBREX] 200 mg PO DAILY PRN 08/16/17 [History] Citalopram Hydrobromide [CeleXA] 20 mg PO DAILY 08/16/17 [History] HYDROcodone/APAP 7.5-325MG [[place] 7.5-325] 1 tab PO TID PRN 08/16/17 [History] Losartan/Hydrochlorothiazide [Hyzaar 50-12.5 Tablet] 1 tab PO DAILY 08/16/17 [ History] Metoclopramide [Reglan] 10 mg PO QID PRN 08/16/17 [History] Nitroglycerin Sl Tabs [Nitrostat] 0.4 mg SUBLINGUAL Q5M PRN 08/16/17 [History] Ondansetron [Zofran] 4 mg PO Q6H PRN 08/16/17 [History] Pantoprazole [Protonix] 40 mg PO AC-BRKFST #30 tab 08/17/17 [Rx] Follow up Appointment(s)/Referral(s): Lencho Verduzco MD [STAFF PHYSICIAN] - 4 Weeks Nolan Mcdaniel DO [Primary Care Provider] - 1 Week Discharge Disposition: HOME SELF-CARE
[2017-08-17 12:53] VITALS: PULSE 96
[2017-08-17] MEDS ORDERED: FAMOTIDINE 20 MG TAB PO SCH (21:00)
[2017-08-18] MEDS ORDERED: PANTOPRAZOLE 40 MG TABLET PO SCH (07:30)
== END 2017-08-17 16:00 | disposition home or self-care (01) ==
LOC: EC 13:51 → 3OBS 16:41
PROVIDERS: ADMIT Family Medicine; ATTEND Family Medicine
DX: R07.89 Other chest pain (principal); R07.2 Precordial pain; R10.13 Epigastric pain; R10.9 Unspecified abdominal pain; K21.9 Gastro-esophageal reflux disease without esophagitis; I10 Essential (primary) hypertension; F41.9 Anxiety disorder, unspecified; F17.210 Nicotine dependence, cigarettes, uncomplicated; R11.0 Nausea; R20.2 Paresthesia of skin; M19.90 Unspecified osteoarthritis, unspecified site; K52.9 Noninfective gastroenteritis and colitis, unspecified; K57.90 Diverticulosis of intestine, part unspecified, without perforation or abscess without bleeding; K31.84 Gastroparesis; E66.8 Other obesity; Z68.28 Body mass index [BMI] 28.0-28.9, adult; Z88.6 Allergy status to analgesic agent; Z79.899 Other long term (current) drug therapy; Z79.82 Long term (current) use of aspirin; Z87.01 Personal history of pneumonia (recurrent); Z85.41 Personal history of malignant neoplasm of cervix uteri; Z80.0 Family history of malignant neoplasm of digestive organs; Z82.5 Family history of asthma and other chronic lower respiratory diseases; Z82.49 Family history of ischemic heart disease and other diseases of the circulatory system; Z80.1 Family history of malignant neoplasm of trachea, bronchus and lung
CPT/HCPCS: 99291; 96375 ×2; 96376 ×2; 96365 ×2; 96366 ×2; 36415; 93005; 93017; 93306; 93350; 80061; 80053; 82550 ×2; 82553 ×2; 83735; 84484 ×2; 85025; 85610; 85730 ×2; 71046; 76705; G0378 ×2; S4990 ×2; J1644 ×2; J2270

== ENCOUNTER → 2017-11-01 | Outpatient (CLI) | payer MEDICAID ==
--- NOTE | 2017-11-01 08:17 | XR ---
EXAMINATION TYPE: XR abdomen 1V DATE OF EXAM: 11/01/2017 7:59 AM CLINICAL HISTORY: Abdominal pain, particularly in the left lower quadrant. TECHNIQUE: Single supine KUB image of the abdomen is obtained. COMPARISON: 06/19/2012. FINDINGS: Moderate degree of retained right hemicolonic stool is noted. Scattered gas is seen in non- distended small bowel loops. Gas and fecal material is seen in non-distended colon. There is no abnor mal calcification appreciated. Mild femoral acetabular arthropathy is seen and cephalad joint space narrowing bilaterally. IMPRESSION: Moderate degree of retained right hemicolonic stool in an overall nonobstructive bowel ga s pattern.
--- NOTE | 2017-11-01 08:22 | XR ---
EXAMINATION TYPE: XR lumbar spine 2 or 3V DATE OF EXAM: 11/01/2017 CLINICAL HISTORY: Back pain TECHNIQUE: Frontal and lateral images of the lumbar spine are obtained. COMPARISON: None FINDINGS: There are 5 lumbar type vertebral bodies identified. The lumbar spine shows satisfactory alignment without evidence of acute fracture or dislocation. Vertebral body heights are maintained. M ild intervertebral disc space narrowing is seen at L1-L2 with small anterior osteophytes at this leve l as well as to lesser degree throughout the remainder of the lumbar spine. Facet arthropathy is note d at L4-L5 and L5-S1, mild in degree. Minimal atherosclerosis is seen of the abdominal aorta. The ove rlying soft tissue appears unremarkable. IMPRESSION: 1. No acute fracture or malalignment is seen in the lumbar spine. 2. Mild multilevel degenerative disc disease.
== END | disposition home or self-care (01) ==
LOC: RADXRMAIN 07:27
PROVIDERS: ATTEND Family Medicine
DX: M51.36 Other intervertebral disc degeneration, lumbar region (principal); K59.00 Constipation, unspecified
CPT/HCPCS: 72100; 74018

== ENCOUNTER → 2018-08-14 | Outpatient (CLI) | payer MEDICAID ==
--- NOTE | 2018-08-19 08:38 | MM ---
Reason for exam: screening (asymptomatic). Last mammogram was performed 13 years and 10 months ago. History: Patient is postmenopausal and history of endometrial cancer. Family history of breast cancer in maternal grandmother. MG 3D Screening Mammo W/Cad Bilateral CC and MLO view(s) were taken. Prior study comparison: October 21, 2004, bilateral screening mammogram. August 22, 2003, bilateral screening mammogram. The breast tissue is heterogeneously dense. This may lower the sensitivity of mammography. No discrete abnormality. ASSESSMENT: Negative, BI-RAD 1 RECOMMENDATION: Routine screening mammogram of both breasts in 1 year.
== END ==
LOC: RADMAMWWP 07:48
PROVIDERS: ATTEND Family Medicine
DX: Z12.31 Encounter for screening mammogram for malignant neoplasm of breast (principal)
CPT/HCPCS: 77063; 77067

== ENCOUNTER → 2019-04-23 | Outpatient (CLI) | payer MEDICAID ==
--- NOTE | 2019-04-23 16:35 | CT ---
EXAMINATION TYPE: CT abdomen pelvis wo con DATE OF EXAM: 04/23/2019 COMPARISON: 06/19/2012 INDICATION: Abnormal weight loss, low abdominal pain and diarrhea. DLP: 262.1 mGycm, Automated exposure control for dose reduction was used. CONTRAST: 0 mL of Isovue 300. Study performed with Oral Contrast TECHNIQUE: Axial images were obtained from above the diaphragm to the pubic rami in the axial plane a t 5 mm thick sections. Reconstructed images are reviewed on the computer in the coronal plane. FINDINGS: Limited CT sections are obtained the lung bases. The lung bases are clear. CT ABDOMEN: Liver: Normal Spleen: Normal Pancreas: Normal Adrenal glands: The adrenal glands are normal. Gallbladder: Normal Kidneys: No masses are evident. No hydronephrosis is present. No cysts are present. No renal stone s are evident. Aorta: Vascular calcification is within the aorta. Inferior vena cava: Normal. CT PELVIS: Loops of bowel within the abdomen and pelvis are normal. There are loops of bowel which are incom pletely distended or lack oral contrast limiting their evaluation. Oral contrast extends to the desce nding colon. A few diverticular changes are within the sigmoid colon Appendix: Normal as visualized. Urinary bladder: Normal. Genitourinary structures: Uterus and ovaries are not identified. No free fluid is within the pelvis. Osseous structures: No suspicious lytic or sclerotic lesions. Facet degenerative changes are within t he lumbar spine IMPRESSIONS: 1. No suspicious acute changes CT abdomen and pelvis
== END | disposition home or self-care (01) ==
LOC: RADCTMAIN 14:30
PROVIDERS: ATTEND Family Medicine
DX: R19.4 Change in bowel habit (principal)
CPT/HCPCS: 74176; Q9967

== ENCOUNTER 2019-07-11 06:42 | Day surgery (SDC) | payer MEDICAID ==
[2019-07-06 14:25] VITALS: BMI 22.6
[~2019-07-11 06:42] MED LIST: LACTATED RINGERS 1,000 ML IV SCH; LIDOCAINE 1% 20 ML VIAL (10MG/ML) FOR IV START INTRADERMA PRN
[2019-07-11 07:20] VITALS: TEMP 96.8
[2019-07-11 07:36] LABS: Glucose,Whole Blood 99 mg/dL (75-99)
[2019-07-11] MEDS ORDERED: LIDOCAINE 1% INJ 10MG/ML (20 ML MDV) ONE (07:41)
[2019-07-11] MEDS ORDERED: PROPOFOL 10 MG/ML 20 ML VIAL IV ONE (07:41)
--- NOTE | 2019-07-11 07:58 | P.GSHP ---
History of Present Illness H&P Date: 07/11/19 Chief Complaint: GERD, screening patient today for upper and lower endoscopy. Patient has had complaints of reflux. Family history of colon cancer in her mother. Has had episodes of diverticulitis. Last colonoscopy 10 years ago. Past Medical History Past Medical History: GERD/Reflux, Hypertension, Osteoarthritis (OA), Pneumonia Additional Past Medical History / Comment(s): , gastroparesis. "was told she had shingles as a baby and was hospitalized and twice since" hiatal Hernia, diverticulitiss, colitis, cervical cacner 1989(had laser sx) endometriosis (partial hysterectomy done) History of Any Multi-Drug Resistant Organisms: None Reported Past Surgical History: Hysterectomy Additional Past Surgical History / Comment(s): partial hysterectomy, egd/colonoscopy/polypectomy-benign, few d&c's from miscarriages,laser sx for cervical cancer Past Anesthesia/Blood Transfusion Reactions: No Reported Reaction Smoking Status: Current every day smoker - Past Family History Mother Family Medical History: Cancer Additional Family Medical History / Comment(s): lung/colon cancer Father Family Medical History: AFIB, Congestive Heart Failure (CHF), COPD, Hypertension, Osteoarthritis (OA) Medications and Allergies Home Medications Medication Instructions Recorded Confirmed Type ALPRAZolam [Xanax] 0.5 mg PO HS PRN 08/16/17 07/11/19 History Aspirin EC [Ecotrin Low Dose] 81 mg PO DAILY 08/16/17 07/11/19 History Butalb/APAP/Caff 50-325-40Mg 1 - 2 tab PO Q4H PRN 08/16/17 07/11/19 History [Fioricet 50-325-40] Celecoxib [CeleBREX] 200 mg PO DAILY PRN 08/16/17 07/11/19 History Citalopram Hydrobromide [CeleXA] 20 mg PO DAILY 08/16/17 07/11/19 History HYDROcodone/APAP 7.5-325MG [[place] 1 tab PO TID PRN 08/16/17 07/11/19 History 7.5-325] Losartan/Hydrochlorothiazide 1 tab PO DAILY 08/16/17 07/11/19 History [Hyzaar 50-12.5 Tablet] Metoclopramide [Reglan] 10 mg PO QID PRN 08/16/17 07/11/19 History Nitroglycerin Sl Tabs [Nitrostat] 0.4 mg SUBLINGUAL Q5M PRN 08/16/17 07/11/19 History Ondansetron [Zofran] 4 mg PO Q6H PRN 08/16/17 07/11/19 History Pantoprazole [Protonix] 40 mg PO AC-BRKFST #30 tab 08/17/17 07/11/19 Rx Cholecalciferol [Vitamin D3 (25 5,000 unit PO DAILY 07/06/19 07/11/19 History Mcg = 1000 Iu)] Magnesium Gluconate [Magonate] 500 mg PO DAILY 07/06/19 07/11/19 History Potassium Gluconate 595 mg PO DAILY 07/06/19 07/11/19 History Allergies Allergy/AdvReac Type Severity Reaction Status Date / Time aspirin AdvReac Nausea Verified 07/06/19 14:11 Surgical - Exam Vital Signs Temp Pulse Resp BP Pulse Ox 96.8 F L 101 H 14 148/84 98 07/11/19 07:19 07/11/19 07:19 07/11/19 07:19 07/11/19 07:19 07/11/19 07:19 Physical exam: General: Well-developed, well-nourished HEENT: Normocephalic, sclerae nonicteric Abdomen: Nontender, nondistended Extremities: No edema Neuro: Alert and oriented Assessment and Plan (1) Colon cancer screening Narrative/Plan: Will proceed with colonoscopy Current Visit: Yes Status: Acute Code(s): Z12.11 - ENCOUNTER FOR SCREENING FOR MALIGNANT NEOPLASM OF COLON SNOMED Code(s): 336785692
--- NOTE | 2019-07-11 08:14 | P.PCN ---
Date of Procedure: 07/11/19 Procedure(s) Performed: PREOPERATIVE DIAGNOSIS: GERD, screening, family history of colon cancer POSTOPERATIVE DIAGNOSIS: gastritis, small hiatal hernia, normal colon PROCEDURE: 1. EGD with biopsy 2. Colonoscopy ANESTHESIA: MAC SURGEON: Ryan Rivas M.D. SPECIMENS: antrum ENDOSCOPIC PROCEDURE: The patient was on the endoscopy table in the left decubitus position. The Olympus gastroscope was inserted into the oropharynx and passed under direct visualization to the region of the third portion of the duodenum. From that point the scope was slowly withdrawn inspecting all surfaces carefully. There were no neoplastic inflammatory or polypoid lesions throughout the duodenum. The pylorus was widely patent. The stomach was carefully inspected. There was mild gastritis present. A biopsy of the antrum took place to rule out H. pylori. Retroflexion revealed a small hiatal hernia. The esophagus was then carefully examined. There was mild distal esophagitis. A biopsy of the distal esophagus took place. The remainder the esophagus appeared normal. The patient was kept on the endoscopy table in the left decubitus position. The Olympus colonoscope was inserted into the anus and passed under direct visualization to the base of the cecum. The appendiceal orifice was visualized. From that point the scope was slowly withdrawn inspecting all surfaces carefully. There were no neoplastic inflammatory or polypoid lesions throughout the cecum, ascending, transverse, descending, sigmoid and rectum. There was no visible diverticulosis. Digital rectal examination was normal. The patient was taken to the recovery room in stable condition per anesthesia guidelines. RECOMMENDATIONS: await biopsy results. Increase fiber. Follow-up colonoscopy 5 years given the patient's family history of colon cancer.
[2019-07-11 08:17] VITALS: RESP 16
[2019-07-11 08:32] VITALS: PULSE 83
[2019-07-11 08:50] VITALS: BP 131/85
== END 2019-07-11 09:10 | disposition home or self-care (01) ==
LOC: ORWHC2ENDO 06:42
PROVIDERS: ATTEND Surgery
DX: Z12.11 Encounter for screening for malignant neoplasm of colon (principal); K21.0 Gastro-esophageal reflux disease with esophagitis; K29.50 Unspecified chronic gastritis without bleeding; K44.9 Diaphragmatic hernia without obstruction or gangrene; K31.84 Gastroparesis; I45.10 Unspecified right bundle-branch block; I10 Essential (primary) hypertension; M19.90 Unspecified osteoarthritis, unspecified site; K57.90 Diverticulosis of intestine, part unspecified, without perforation or abscess without bleeding; F17.200 Nicotine dependence, unspecified, uncomplicated; Z87.01 Personal history of pneumonia (recurrent); Z85.41 Personal history of malignant neoplasm of cervix uteri; Z90.710 Acquired absence of both cervix and uterus; Z87.42 Personal history of other diseases of the female genital tract; Z98.890 Other specified postprocedural states; Z86.010 Personal history of colon polyps; Z79.899 Other long term (current) drug therapy; Z79.82 Long term (current) use of aspirin; Z79.891 Long term (current) use of opiate analgesic; Z88.6 Allergy status to analgesic agent; Z80.0 Family history of malignant neoplasm of digestive organs; Z80.1 Family history of malignant neoplasm of trachea, bronchus and lung; Z82.49 Family history of ischemic heart disease and other diseases of the circulatory system; Z82.61 Family history of arthritis; Z82.5 Family history of asthma and other chronic lower respiratory diseases
CPT/HCPCS: 88305; 43239; J2001; J2704; G0105; 45378

== ENCOUNTER → 2019-08-31 | Outpatient (CLI) | payer MEDICAID ==
--- NOTE | 2019-08-31 11:01 | XR ---
EXAMINATION TYPE: XR cervical spine limited DATE OF EXAM: 08/31/2019 TECHNIQUE: Frontal lateral and open mouth views of the cervical spine are obtained. HISTORY: M99.01 Segmental and somatic dysfunction of cervic COMPARISON: None FINDINGS: There is straightening of usual cervical lordosis. There is intervertebral disc space narro wing seen at the C5-C6 and C6-C7. There is grade 1 anterolisthesis of C4 on C5. Multilevel anterior o steophytes and facet arthropathy as well as uncovertebral hypertrophy are seen. Odontoid is intact. N o prevertebral soft tissue swelling. Mild generalized osseous demineralization. IMPRESSION: Extensive multilevel degenerative disc disease from C5 through C7 with more mild to moder ate degenerative disc disease of the upper cervical spine. There is grade 1 anterolisthesis of C4 and C5 that likely is on a degenerative basis.
--- NOTE | 2019-08-31 11:41 | XR ---
EXAMINATION TYPE: XR lumbar spine 2 or 3V DATE OF EXAM: 08/31/2019 CLINICAL HISTORY: Low back pain TECHNIQUE: Frontal and lateral images of the lumbar spine are obtained. COMPARISON: 11/01/2017 FINDINGS: There are 5 lumbar type vertebral bodies identified. The lumbar spine shows satisfactory alignment without evidence of acute fracture or dislocation. Vertebral body heights and disk space he ights are within normal limits. Facet arthropathy is seen from L2 through L5. Mild intervertebral dis c space narrowing at L5-S1 and at L1-L2. Small anterior osteophytes throughout the visualized thoraco lumbar spine. Moderate atherosclerosis of the abdominal aorta. The overlying soft tissue appears unr emarkable. IMPRESSION: 1. No acute fracture or malalignment is seen in the lumbar spine. 2. Progression in degenerative disc disease with multilevel facet arthropathy and small anterior oste ophytes throughout the lumbar spine. Overall arthropathy is mild to moderate.
== END | disposition home or self-care (01) ==
LOC: RADXRMAIN 10:13
PROVIDERS: ATTEND Chiropractor
DX: M50.321 Other cervical disc degeneration at C4-C5 level (principal); M51.36 Other intervertebral disc degeneration, lumbar region; M46.96 Unspecified inflammatory spondylopathy, lumbar region
CPT/HCPCS: 72040; 72100

== ENCOUNTER 2020-01-29 15:31 | Emergency (ER) | payer MEDICAID ==
[2020-01-29] MEDS ORDERED: ONDANSETRON 4 MG/2 ML VIAL IVP STA (16:00)
[2020-01-29] MEDS ORDERED: SODIUM CHLORIDE 0.9% 500 ML 500 ML IV STA ×2 (16:00→17:05)
--- NOTE | 2020-01-29 16:23 | ED ---
General Adult HPI - General Chief complaint: Recheck/Abnormal Lab/Rx Stated complaint: low sodium/NVD Time Seen by Provider: 01/29/20 15:43 Source: patient, RN notes reviewed Mode of arrival: ambulatory Limitations: no limitations - History of Present Illness Initial comments: 59-year-old female with a past medical history of GERD, hypertension, gastrop aresis, hiatal hernia, diverticulosis presents to the emergency department for a chief complaint of nausea vomiting diarrhea. Patient has had nausea vomiting diarrhea for several weeks now. States she only has diarrhea on the morning and will not be able to give a stool sample at this time. States nauseous is sometimes chronic with history of gastroparesis. States that she does not have any new or unchanged abdominal pain. Patient states that she was told she had low sodium about a month ago and has been trying to eat more salt but is still having these symptoms. Patient states she called Dr. Mcdaniel who said he would see her in the office tomorrow morning at 9 AM. She states she was not told to come to the emergency department.Patient has no other complaints at this time including shortness of breath, chest pain, abdominal pain, nausea or vomiting, headache, or visual changes. - Related Data Home Medications Medication Instructions Recorded Confirmed ALPRAZolam [Xanax] 0.5 mg PO HS PRN 08/16/17 07/11/19 Aspirin EC [Ecotrin Low Dose] 81 mg PO DAILY 08/16/17 07/11/19 Butalb/APAP/Caff 50-325-40Mg 1 - 2 tab PO Q4H PRN 08/16/17 07/11/19 [Fioricet 50-325-40] Celecoxib [CeleBREX] 200 mg PO DAILY PRN 08/16/17 07/11/19 Citalopram Hydrobromide [CeleXA] 20 mg PO DAILY 08/16/17 07/11/19 HYDROcodone/APAP 7.5-325MG [[place] 1 tab PO TID PRN 08/16/17 07/11/19 7.5-325] Losartan/Hydrochlorothiazide 1 tab PO DAILY 08/16/17 07/11/19 [Hyzaar 50-12.5 Tablet] Metoclopramide [Reglan] 10 mg PO QID PRN 08/16/17 07/11/19 Nitroglycerin Sl Tabs [Nitrostat] 0.4 mg SUBLINGUAL Q5M PRN 08/16/17 07/11/19 Ondansetron [Zofran] 4 mg PO Q6H PRN 08/16/17 07/11/19 Cholecalciferol [Vitamin D3 (25 5,000 unit PO DAILY 07/06/19 07/11/19 Mcg = 1000 Iu)] Magnesium Gluconate [Magonate] 500 mg PO DAILY 07/06/19 07/11/19 Potassium Gluconate 595 mg PO DAILY 07/06/19 07/11/19 Previous Rx's Medication Instructions Recorded Pantoprazole [Protonix] 40 mg PO AC-BRKFST #30 tab 08/17/17 Loperamide [Imodium] 2 mg PO Q6H PRN #10 capsule 01/29/20 Ondansetron [Zofran ODT] 4 mg PO Q8HR PRN #15 tab 01/29/20 Allergies Allergy/AdvReac Type Severity Reaction Status Date / Time aspirin AdvReac Nausea Verified 01/29/20 15:40 Review of Systems ROS Statement: Those systems with pertinent positive or pertinent negative responses have been documented in the HPI. ROS Other: All systems not noted in ROS Statement are negative. Past Medical History Past Medical History: GERD/Reflux, Hypertension, Osteoarthritis (OA), Pneumonia Additional Past Medical History / Comment(s): , gastroparesis. "was told she had shingles as a baby and was hospitalizes" hiatal Hernia, diverticulitous, coloitis, cervical caner 1989(had laser sx) endometreosis(partail hysterectomy done) History of Any Multi-Drug Resistant Organisms: None Reported Past Surgical History: Hysterectomy Additional Past Surgical History / Comment(s): partial hysterectomy, egd/colonoscopy/polypectomy-benign, few d&c's from miscarriages,laser sx for cervical cancer Past Anesthesia/Blood Transfusion Reactions: No Reported Reaction Past Psychological History: No Psychological Hx Reported Smoking Status: Current every day smoker Past Alcohol Use History: Occasional Past Drug Use History: None Reported - Past Family History Mother Family Medical History: Cancer Additional Family Medical History / Comment(s): lung/colon cancer Father Family Medical History: AFIB, Congestive Heart Failure (CHF), COPD, Hypertension, Osteoarthritis (OA) General Exam Limitations: no limitations General appearance: alert, in no apparent distress Head exam: Present: atraumatic, normocephalic, normal inspection Eye exam: Present: normal appearance, PERRL, EOMI. Absent: scleral icterus, conjunctival injection, periorbital swelling ENT exam: Present: normal exam, mucous membranes moist Neck exam: Present: normal inspection, full ROM. Absent: tenderness, meningismus, lymphadenopathy Respiratory exam: Present: normal lung sounds bilaterally. Absent: respiratory distress, wheezes, rales, rhonchi, stridor Cardiovascular Exam: Present: regular rate, normal rhythm, normal heart sounds. Absent: systolic murmur, diastolic murmur, rubs, gallop, clicks GI/Abdominal exam: Present: soft, normal bowel sounds. Absent: distended, tenderness, guarding, rebound, rigid Course Vital Signs 01/29/20 15:37 Temperature 98.0 F Pulse Rate 87 Respiratory 18 Rate Blood Pressure 137/83 O2 Sat by Pulse 98 Oximetry Medical Decision Making - Medical Decision Making Vitals are stable. Symptoms have been stable for over 3 weeks. CBC is unremarkable. CMP does show some mild hyponatremia however this appears chronic. Urinalysis is negative. Patient cannot give a stool sample at this time but will be given stool cup as she is seeing primary care tomorrow. Patient was given a liter of fluids here in the emergency room. Patient will be given some Imodium as well as Zofran. Will be discharged home and will see her doctor at 9 in the morning. - Lab Data Result diagrams: 01/29/20 16:22 01/29/20 16:22 Lab Results 01/29/20 01/29/20 01/29/20 Range/Units 16:22 16:22 16:22 WBC 6.6 (3.8-10.6) k/uL RBC 4.07 (3.80-5.40) m/uL Hgb 13.9 (11.4-16.0) gm/dL Hct 40.7 (34.0-46.0) % MCV 100.1 H (80.0-100.0) fL MCH 34.2 (25.0-35.0) pg MCHC 34.1 (31.0-37.0) g/dL RDW 12.3 (11.5-15.5) % Plt Count 213 (150-450) k/uL Neutrophils % 56 % Lymphocytes % 34 % Monocytes % 5 % Eosinophils % 2 % Basophils % 1 % Neutrophils # 3.7 (1.3-7.7) k/uL Lymphocytes # 2.3 (1.0-4.8) k/uL Monocytes # 0.3 (0-1.0) k/uL Eosinophils # 0.1 (0-0.7) k/uL Basophils # 0.0 (0-0.2) k/uL Sodium 128 L (137-145) mmol/L Potassium 5.0 (3.5-5.1) mmol/L Chloride 98 (98-107) mmol/L Carbon Dioxide 20 L (22-30) mmol/L Anion Gap 10 mmol/L BUN 9 (7-17) mg/dL Creatinine 0.93 (0.52-1.04) mg/dL Est GFR (CKD-EPI)AfAm 79 (>60 ml/min/1.73 sqM) Est GFR (CKD-EPI)NonAf 68 (>60 ml/min/1.73 sqM) Glucose 91 (74-99) mg/dL Calcium 9.4 (8.4-10.2) mg/dL Magnesium 1.9 (1.6-2.3) mg/dL Total Bilirubin 0.6 (0.2-1.3) mg/dL AST 42 H (14-36) U/L ALT 19 (4-34) U/L Alkaline Phosphatase 89 (38-126) U/L Total Protein 8.0 (6.3-8.2) g/dL Albumin 4.7 (3.5-5.0) g/dL Urine Color Yellow Urine Appearance Clear (Clear) Urine pH 6.0 (5.0-8.0) Ur Specific Clancy 1.012 (1.001-1.035) Urine Protein Negative (Negative) Urine Glucose (UA) Negative (Negative) Urine Ketones Negative (Negative) Urine Blood Negative (Negative) Urine Nitrite Negative (Negative) Urine Bilirubin Negative (Negative) Urine Urobilinogen <2.0 (<2.0) mg/dL Ur Leukocyte Esterase Negative (Negative) Disposition Clinical Impression: Nausea vomiting and diarrhea Disposition: HOME SELF-CARE Condition: Good Instructions (If sedation given, give patient instructions): Acute Nausea and Vomiting (ED), Acute Diarrhea (ED), Hyponatremia (ED) Additional Instructions: Please follow-up with your doctor tomorrow your scheduled appointment. Take medications as needed. Return to the emergency room if you have any worsening symptoms. Prescriptions: Loperamide [Imodium] 2 mg PO Q6H PRN #10 capsule PRN Reason: Diarrhea Ondansetron [Zofran ODT] 4 mg PO Q8HR PRN #15 tab PRN Reason: Nausea Is patient prescribed a controlled substance at d/c from ED?: No Referrals: Nolna Mcdaniel DO [Primary Care Provider] - 1-2 days Time of Disposition: 17:07
[2020-01-29 16:36] LABS: Appearance,Urine Clear (Clear); Basophils % (A) 1 %; Bilirubin,Urine Negative (Negative); Blood,Urine Negative (Negative); Color,Urine Yellow; Eosinophils # (A) 0.1 k/uL (0-0.7); Eosinophils % (A) 2 %; Glucose,Urine (UA) Negative (Negative); HCT 40.7 % (34.0-46.0); HGB 13.9 gm/dL (11.4-16.0); Ketones,Urine Negative (Negative); Leukocyte Esterase,Urine Negative (Negative); Lymphocytes # (A) 2.3 k/uL (1.0-4.8); Lymphocytes % (A) 34 %; MCH 34.2 pg (25.0-35.0); MCHC 34.1 g/dL (31.0-37.0); MCV 100.1 fL (80.0-100.0); Mean Platelet Volume 7.2; Monocytes # (A) 0.3 k/uL (0-1.0); Monocytes % (A) 5 %; Neutrophils # (A) 3.7 k/uL (1.3-7.7); Neutrophils % (A) 56 %; Nitrite,Urine Negative (Negative); Platelet Count 213 k/uL (150-450); Protein,Urine Negative (Negative); RBC 4.07 m/uL (3.80-5.40); RDW 12.3 % (11.5-15.5); Specific Gravity,Urine 1.012 (1.001-1.035); Urobilinogen,Urine <2.0 mg/dL (<2.0); WBC 6.6 k/uL (3.8-10.6)
[2020-01-29 16:49] LABS: Albumin 4.7 g/dL (3.5-5.0); Calcium 9.4 mg/dL (8.4-10.2); Magnesium 1.9 mg/dL (1.6-2.3); Total Bilirubin 0.6 mg/dL (0.2-1.3)
[2020-01-29 18:17] VITALS: BP 138/70; PULSE 78; RESP 16; TEMP 98
== END 2020-01-29 18:15 | disposition home or self-care (01) ==
LOC: EC 15:31
DX: R11.2 Nausea with vomiting, unspecified (principal); R19.7 Diarrhea, unspecified; E87.1 Hypo-osmolality and hyponatremia; I10 Essential (primary) hypertension; F17.200 Nicotine dependence, unspecified, uncomplicated; Z79.82 Long term (current) use of aspirin; Z79.899 Other long term (current) drug therapy; Z88.6 Allergy status to analgesic agent
CPT/HCPCS: 36415; 80053; 83735; 85025; 81003; 99284; 96374; 96361 ×2; J2405

== ENCOUNTER → 2020-07-07 | Outpatient (CLI) | payer MEDICAID ==
--- NOTE | 2020-07-07 14:04 | MR ---
EXAMINATION TYPE: MR shoulder RT wo con DATE OF EXAM: 07/07/2020 COMPARISON: Outside radiograph 06/13/2020 HISTORY: 60-year-old female Right shoulder pain TECHNIQUE: Multiplanar, multisequence imaging of the right shoulder is performed without contrast. FINDINGS: There is some intrinsic signal within the intracapsular portion of the long head biceps tendon. Mild to moderate tenosynovial fluid. Heterogeneous signal the subscapularis tendon with a partial tear involving the superior and middle t hird fibers. The majority of the tendon remains intact. Moderate to severe degenerative joint space narrowing and marginal spurring at the acromioclavicular joint. Mild mass effect onto the underlying myotendinous junction of the supraspinatous. Marked thickening of the supraspinatus tendon with very abnormal inhomogeneous signal. Scattered intr asubstance change within both supraspinatus and infraspinatus tendons. Some bursal sided fraying may be present. No high-grade partial or full-thickness thickness tear. No atrophy of the rotator cuff musculature. Mild thickening/effusion within the subacromial/subdeltoid bursa. No discrete labral tear given the radiographic technique and no para labral cyst. Mild to moderate diffuse thinning of glenohumeral joint articular cartilage. No significant joint eff usion. No Hill-Sachs deformity or os acromiale. Heterogeneous marrow signal suggests red marrow hyperplasia which can be seen with anemia, obesity, smoking, and chronic disease. No suspicious bone marrow repla cement. IMPRESSION: 1. Diffuse rotator cuff tendinosis. There is partial tear involving the superior and middle third fib ers of the subscapularis tendon. The majority of the tendon remains intact. 2. Bursal sided fraying of the supraspinatus tendon and scattered intrasubstance change within both s upraspinatus and infraspinatus tendons. Tendinosis is fairly severe within the supraspinatus tendon. No high-grade partial or full-thickness tear is seen. 3. Intracapsular long head biceps tendinosis versus interstitial tear. Mild tenosynovitis. 4. Moderate to severe AC joint OA with mild subacromial impingement. 5. Mild overall glenohumeral joint OA.
== END | disposition home or self-care (01) ==
LOC: RADMRIMAIN 11:07
PROVIDERS: ATTEND Orthopaedic Surgery
DX: M19.011 Primary osteoarthritis, right shoulder (principal); M75.41 Impingement syndrome of right shoulder; M75.111 Incomplete rotator cuff tear or rupture of right shoulder, not specified as traumatic; M67.813 Other specified disorders of tendon, right shoulder

== ENCOUNTER → 2020-08-15 | Outpatient (CLI) | payer MEDICAID ==
[2020-08-15 08:07] LABS: Basophils # (A) 0.1 k/uL (0-0.2); Basophils % (A) 1 %; Eosinophils # (A) 0.1 k/uL (0-0.7); Eosinophils % (A) 1 %; HCT 40.4 % (34.0-46.0); HGB 13.1 gm/dL (11.4-16.0); Lymphocytes # (A) 1.5 k/uL (1.0-4.8); Lymphocytes % (A) 25 %; MCH 32.6 pg (25.0-35.0); MCHC 32.4 g/dL (31.0-37.0); MCV 100.6 fL (80.0-100.0); Mean Platelet Volume 7.5; Monocytes # (A) 0.4 k/uL (0-1.0); Monocytes % (A) 6 %; Neutrophils # (A) 4.1 k/uL (1.3-7.7); Neutrophils % (A) 66 %; Platelet Count 170 k/uL (150-450); RBC 4.02 m/uL (3.80-5.40); WBC 6.3 k/uL (3.8-10.6)
[2020-08-15 08:25] LABS: Potassium 4.5 mmol/L (3.5-5.1)
== END | disposition home or self-care (01) ==
LOC: LABPAT 07:25
PROVIDERS: ATTEND Orthopaedic Surgery
DX: Z01.818 Encounter for other preprocedural examination (principal); M75.41 Impingement syndrome of right shoulder
CPT/HCPCS: 36415; 80051; 85025; 93005

== ENCOUNTER 2020-08-27 05:43 | Inpatient (IN) | payer MEDICAID ==
--- NOTE | 2020-08-26 17:51 | HP ---
HISTORY AND PHYSICAL DATE OF SURGERY: 08/27/2020 Vi Fuentes is a 60-year-old patient seen with progressive right shoulder pain. We discussed treatment options with her. She elected to proceed with arthroscopy. Consent was obtained. PAST MEDICAL HISTORY: Hypertension, hypothyroidism. PAST SURGICAL HISTORY: Hysterectomy. DAILY MEDICATIONS: Aspirin, Celebrex, Mobic, Reglan, Xanax. ALLERGIES: NONE. SOCIAL HISTORY: Smokes 1/2 pack of cigarettes a day. PHYSICAL EVALUATION OF THE RIGHT SHOULDER: Flexion 130, abduction 90, external rotation is 40 with pain and weakness. Tenderness along the anterolateral acromion and rotator cuff insertion site. Impingement is positive at 80. Drop-arm sign positive. Distal neurovascular exam intact. RADIOGRAPHS: Radiographs of the right shoulder revealed a type 2 acromion, acromioclavicular joint osteoarthritis. Right shoulder MRI revealed a partial rotator cuff tear, acromioclavicular osteoarthritis and partial long-head biceps tendon tear. IMPRESSION: 1. Right shoulder impingement with rotator cuff tear. 2. Right shoulder acromioclavicular joint osteoarthritis. 3. Right shoulder partial long-head biceps tendon tear. 4. Hypertension. 5. Hypothyroidism. PLAN: Right shoulder arthroscopy with subacromial decompression, arthroscopic rotator cuff repair, arthroscopic Aida procedure, probable arthroscopic biceps tenotomy and debridement. MMODL / IJN: [id number] /
[2020-08-27] MEDS ORDERED: DEXAMETHASONE SOD PHOSPHATE 4 MG/ML 1 ML VIAL IV ONE (06:00)
[2020-08-27] MEDS ORDERED: LACTATED RINGERS 1,000 ML IV SCH (06:00)
[2020-08-27] MEDS ORDERED: LIDOCAINE 1% (10MG/ML) FOR IV START INTRADERMA PRN (06:00)
[2020-08-27] MEDS ORDERED: SCOPOLAMINE 1.5MG/72HR PATCH TRANSDERM ONE (06:00)
[2020-08-27] MEDS ORDERED: ONDANSETRON 4 MG/2 ML VIAL ONE (06:38)
[2020-08-27] MEDS ORDERED: MIDAZOLAM 2 MG/2 ML VIAL IV ONE (06:51)
[2020-08-27] MEDS ORDERED: fentaNYL (PF) 50 MCG/ML 2 ML AMP ONE (07:23)
[2020-08-27] MEDS ORDERED: SUCCINYLCHOLINE CHLORIDE 100 MG/5 ML SYR IV ONE (07:23)
[2020-08-27] MEDS ORDERED: LIDOCAINE 1% INJ 10MG/ML (20 ML MDV) ONE (07:23)
[2020-08-27] MEDS ORDERED: DEXAMETHASONE SOD PHOSPHATE 4 MG/ML 1 ML VIAL ONE (07:23)
[2020-08-27] MEDS ORDERED: MIDAZOLAM 2 MG/2 ML VIAL ONE (07:23)
[2020-08-27] MEDS ORDERED: ROPIVACAINE 5 MG/ML 30 ML VIAL ONE (07:23)
[2020-08-27] MEDS ORDERED: KETOROLAC 15 MG/ML 1 ML VIAL ONE (07:23)
[2020-08-27] MEDS ORDERED: PROPOFOL 10 MG/ML 20 ML VIAL IV ONE (07:23)
[2020-08-27] MEDS ORDERED: LACTATED RINGERS 1,000 ML IV ONE (08:42)
--- NOTE | 2020-08-27 09:13 | P.OP ---
Date of Procedure: 08/27/20 Preoperative Diagnosis: Right shoulder impingement Postoperative Diagnosis: 1. Right shoulder rotator cuff tear 2. Right shoulder impingement 3. Right shoulder acromioclavicular joint osteoarthritis 4. Right shoulder partial long head biceps tendon tear Procedure(s) Performed: 1. Right shoulder arthroscopic rotator cuff repair 2. Right shoulder arthroscopic subacromial decompression 3. Right shoulder arthroscopic Aida procedure 4. Right shoulder arthroscopic biceps tenotomy Implants: 1Arthrex 5.5 swivel lock anchor Anesthesia: GETA, regional (Interscalene block) Surgeon: Jonatan Lorenzana Estimated Blood Loss (ml): 11 Pathology: none sent Condition: stable Disposition: PACU Indications for Procedure: 60-year-old patient seen with progressive right shoulder pain. After treatment options were discussed, she elected to proceed with arthroscopy. Operative Findings: See description of procedure Description of Procedure: Patient underwent an interscalene block by department of anesthesia. The patient was then taken to the operative suite. The patient underwent a general anesthetic by the department of anesthesia. The patient was placed into a lateral position and secured. There was appropriate padding of the bony prominence. Right shoulder was then prepped and draped in normal sterile orthopedic fashion. We placed the extremity in 10 pounds of longitudinal tract ion. A posterior incision was now made for a posterior working portal site. The trocar and cannula were inserted into the glenohumeral joint. Arthroscopy was initiated. Spinal needle was now inserted anteriorly, to ascertain the anterior working portal site. An incision was now made in that area, a trocar was inserted followed by a probe. It was hyperemia and partial tearing long head biceps tendon. There were grade 1 chondromalacia changes diffusely. The labrum was probed and found to be stable. I performed an arthroscopic biceps tenotomy. I again probed the labrum and it was found to be stable. Instruments were now removed from the glenohumeral joint. Utilizing the posterior working portal site, the trocar and cannula were inserted into the subacromial space. Arthroscopy initiated. I made an incision 2 fingerbreadths lateral to the acromion. I introduced my trocar followed by my ArthroCare ablator. I now began ablating thick subacromial bursal tissue, which exposed the undersurface of the anterior acromion. There was diminished subacromial space. There was a very prominent anterior acromion. A motorized bur was introduced and a subacromial decompression was performed. I also excised some osteophytes off the inferior aspect of the distal clavicle. The AC joint was visualized and noted to be fairly arthritic. The motorized bur was introduced in the anterior portal site and a Aida procedure was performed without difficulty, decompressing the AC joint nicely. I turned my attention to the rotator cuff. There was a 1.5 cm rotator cuff tear. I debrided the margins getting down to stable tendon tissue. I abraded the footprint with a motorized bur. I passed 3 everted mattress sutures through good bites of rotator cuff tendon. I punched along the footprint for insertion of an anchor. All 6 limbs of suture were passed through the eyelet of a 5.5 Arthrex swivel lock anchor. The anchor was position and deployed with good fixation noted. All residual suture limbs were now clipped. We had good compression of the tendon along the entire footprint. I injected 1 mL Renyte intra-articular. Instruments now removed from the portal sites. All portal sites were approximated with nylon suture. Sterile dressings were applied followed by a shoulder sling. The patient was awakened, transferred to a bed, and taken to recovery in stable condition.
[2020-08-27 09:22] VITALS: TEMP 96.7
[2020-08-27] MEDS: HYDROmorphone 0.5 MG/0.5 ML SYRINGE IVP PRN ×2 (09:26→09:41)
[2020-08-27] MEDS ORDERED: HYDROcodone/APAP 7.5-325MG 1 EACH TAB ONE (10:17)
[2020-08-27] MEDS ORDERED: HYDROcodone/APAP 7.5-325MG 1 EACH TAB PO ONE (10:20)
[2020-08-27 10:45] VITALS: BP 151/66; PULSE 90; RESP 16
--- NOTE | 2020-08-29 08:15 | P.ANPRN ---
Procedure Note - Anesthesia - Nerve Block Performed Right Interscalene Single Time Out Performed: Yes Date of Procedure: 08/27/20 Procedure Start Time: 06:51 Procedure Stop Time: 06:55 Location of Patient: PreOp Indication: Acute Post-Operative Pain, Requested by Surgeon Sedation Type: Sedate with meaningful contact maintained Preparation: Sterile Prep Position: Supine Needle Types: Pajunk Needle Gauge: 21 Ultrasound used to visualize needle placement: Yes Ultrasound used to observe medication spread: Yes Blood Aspirated: No Pain Paresthesia on Injection Noted: No Resistance on Injection: Normal Image Stored and Saved: Yes Events: Uneventful and Well Tolerated (ropi .5% 20cc plus dexamethasone 4mg)
== END 2020-08-27 11:06 | disposition home or self-care (01) | DRG 502 ==
LOC: 2ORMAIN 05:43
PROVIDERS: ADMIT Orthopaedic Surgery; ATTEND Orthopaedic Surgery
PROC: 0LQ14ZZ Repair Right Shoulder Tendon, Percutaneous Endoscopic Approach (ICD-10-PCS; 2020-08-27)
PROC: 0PB94ZZ Excision of Right Clavicle, Percutaneous Endoscopic Approach (ICD-10-PCS; 2020-08-27)
PROC: 0RNJ4ZZ Release Right Shoulder Joint, Percutaneous Endoscopic Approach (ICD-10-PCS; 2020-08-27)
PROC: 0LN14ZZ Release Right Shoulder Tendon, Percutaneous Endoscopic Approach (ICD-10-PCS; principal; 2020-08-27 07:30)
DX: M19.011 Primary osteoarthritis, right shoulder (principal); M25.811 Other specified joint disorders, right shoulder; S46.811A Strain of other muscles, fascia and tendons at shoulder and upper arm level, right arm, initial encounter; M75.111 Incomplete rotator cuff tear or rupture of right shoulder, not specified as traumatic; E03.9 Hypothyroidism, unspecified; I10 Essential (primary) hypertension; F17.210 Nicotine dependence, cigarettes, uncomplicated; X58.XXXA Exposure to other specified factors, initial encounter; Z79.82 Long term (current) use of aspirin; Z79.899 Other long term (current) drug therapy; Z90.710 Acquired absence of both cervix and uterus
CPT/HCPCS: 64415; 76942

== ENCOUNTER → 2021-08-06 | Outpatient (CLI) | payer MEDICAID, OTHER | END | disposition home or self-care (01) | LOC: LABWHC1 10:30 | PROVIDERS: ATTEND Emergency Medicine | DX: U07.1 COVID-19 (principal) | CPT/HCPCS: 87635 ==

== ENCOUNTER → 2022-10-28 | Outpatient (CLI) | payer MEDICAID ==
[2022-10-28 10:48] VITALS: BP 132/78; PULSE 76; RESP 16; TEMP 98.3
--- NOTE | 2022-10-28 14:44 | P.PAINPG ---
PQRS Measure Charge Sheet Comment: HISTORY OF PRESENT ILLNESS: 62 yr old female w at side as a referral from Dr Alford presents today w severe and chronic LBP secondary to DDD, spondylosis and facet arthropathy without myelopathy for evaluation. Pt states pain level is provoked at 10 /10 in intensity, constant, localized in the lower lumbar spine, sharp in character w shooting pain towards the BLEs. Pain is provoked by weight bearing activity. Pain is alleviated by PT in Sep 2022 without relief, chiropractic treatments in the past without relief, PT guided exercises daily, heat, ice, (Celebrex), topical, use of a lumbar support brace, repositioning and rest. PMH: GERD, HTN, Hyperlipidemia, OA PSH: EGD (2018), R Shoulder RCT Repair (2020), Hiatal Hernia, Cervical CA w Laser Resection, Partial Hysterectomy SH: Daily tobacco use, No ETOH abuse, No illicit drug use FH: Mo- Lung CA. Fa- aFib, CHF, COPD, HTN, OA. All: ASA Meds: See list REVIEW OF ORGAN SYSTEMS: CONSTITUTIONAL: No fevers or chills. No recent weight loss. NEUROLOGICAL: + numbness and tingling along the distal extremities. No seizure disorders or headaches. MUSCULOSKELETAL: + pain PSYCHIATRIC: Denies current depression or suicidal thoughts. Physical Examinations : Constitutional : Cooperative , not in acute distress . Neurologic : Cranial nerve II to XII intact. No focal neurological deficits. Psychiatric : alert & oriented x 3. Matching mood & appropriate affect. Judgment & insight intact. Musculoskeletal : Cervical Spine Motor strength in the deltoid and biceps: Normal right side. Normal Left side Motor strength biceps and the wrist extensors: Normal right side . Normal left side Motor strength in the triceps muscle: Normal right side. Normal left side Deep tendon reflexes: Normal at the biceps. Normal at Brachioradialis. Normal at triceps Vertebral body tenderness to deep palpation over Cervical facet loading test: positive bilaterally Spurling test: positive bilaterally Neck distraction test: positive bilaterally Raffy sign: positive bilaterally Lumbar spine Motor strength lower extremities ,thigh and legs 5/5 Right side , 5/5 Left side Deep tendon reflexes : Normal Knee Jerk. Normal Ankle Jerk Vertebral body tenderness over L4 Lumbar facet Loading Test: positive Right / positive Left Range of motion of the lumbar spine Flexion 30 degrees, extension 10 degrees Straight Leg Raise test: Left/ Right positive at degree Zay test: positive right / positive left. Severe tenderness over the Sacroiliac joint on the Right / Left sides Gaenslen test: positive bilaterally Seated flexion test: positive bilaterally. Sacral spine : Severe tenderness over the Sacroiliac joint: right side / left side Range of motion: Flexion of the lumbar spine <60 degrees Range of motion: Extension of the lumbar spine <20 degrees Gaenslen's Test positive Hayes's Test positive Zay test: positive right side / left side Thigh Thrust Test Sacral Thrust Test Imaging: MRI without contrast of the lumbar spine from 10/08/22 reviewed Assessment/ Plan : Lumbar DDD Recommendation of KRISTINA L4-L5 #1. May need a series of injections for optimal pain relief. Risks, benefits of procedure discussed and patient verbalized understanding. Admits to aspirin or anti- coagulant use or medical history of diabetes. Protocol for discontinuation/ continuation of medications kameron procedure discussed. All questions answered. I have spent greater than 30 minutes on patient care today. Dr Gaston was available by phone for the evaluation of this patient. The time was used to review the medical records including relevant urine studies and Prescription history (MAPs), review of the available imaging, evaluation and examination of the patient, coordination of care with the medical staff and if applicable referring physicians, as well as creation of the medical record PQRS Narrative: Smoking Status Current every day smoker Home Medications: Ambulatory Orders ALPRAZolam [Xanax] 0.5 mg PO HS PRN 08/16/17 Celecoxib [CeleBREX] 200 mg PO DAILY PRN 08/16/17 Metoclopramide [Reglan] 10 mg PO QID PRN 08/16/17 Nitroglycerin Sl Tabs [Nitrostat] 0.4 mg SUBLINGUAL Q5M PRN 08/16/17 Ondansetron [Zofran] 4 mg PO Q6H PRN 08/16/17 Pantoprazole [Protonix] 40 mg PO AC-BRKFST #30 tab 08/17/17 Cholecalciferol [Vitamin D3 (25 Mcg = 1000 Iu)] 5,000 unit PO DAILY 07/06/19 Loperamide [Imodium] 2 mg PO Q6H PRN #10 capsule 01/29/20 amLODIPine BESYLATE 5 mg PO DAILY 08/21/20 Atorvastatin [Lipitor] 10 mg PO DAILY 10/28/22 Controlled Substance Measures - Controlled Substance Measures Is patient prescribed a controlled substance at discharge?: No
== END ==
LOC: PNWHC3 09:58
PROVIDERS: ATTEND Specialist
DX: M51.36 Other intervertebral disc degeneration, lumbar region (principal); F17.200 Nicotine dependence, unspecified, uncomplicated; K21.9 Gastro-esophageal reflux disease without esophagitis; I10 Essential (primary) hypertension; E78.5 Hyperlipidemia, unspecified; M19.90 Unspecified osteoarthritis, unspecified site; Z88.6 Allergy status to analgesic agent; M43.16 Spondylolisthesis, lumbar region; M43.17 Spondylolisthesis, lumbosacral region
CPT/HCPCS: 99211

== ENCOUNTER 2022-11-23 09:22 | Day surgery (SDC) | payer MEDICAID ==
[2022-11-17 15:47] VITALS: BMI 22.4
[~2022-11-23 09:22] MED LIST changes: +LIDOCAINE 1% (10MG/ML) FOR IV START INTRADERMA PRN; -LIDOCAINE 1% 20 ML VIAL (10MG/ML) FOR IV START INTRADERMA PRN
[2022-11-23 10:19] VITALS: TEMP 97.5
[2022-11-23] MEDS ORDERED: IOPAMIDOL M200 10 ML VIAL ONE (11:10)
[2022-11-23] MEDS ORDERED: fentaNYL (PF) 50 MCG/ML 2 ML AMP ONE (11:10)
[2022-11-23] MEDS ORDERED: MIDAZOLAM 2 MG/2 ML VIAL ONE (11:10)
[2022-11-23] MEDS ORDERED: methylPREDNISolone ACETATE 80 MG/ML 1 ML VIAL ONE (11:10)
--- NOTE | 2022-11-23 11:21 | P.PCN ---
Date of Procedure: 11/23/22 Procedure(s) Performed: PREOPERATIVE DIAGNOSIS: 1- Lumbar Degenerative Disc Diseases 2-Lumbar spondylosis with Facet arthropathy without myelopathy. POSTOPERATIVE DIAGNOSIS: 1-lumbar degenerative disc disease. 2-lumbar spondylosis with facet arthropathy without myelopathy. PROCEDURE 1. Lumbar epidural steroid injection under fluoroscopic guidance at the L4-5 level. (Fluoroscopy imaging was available in radiology department) 2. Lumbar epidurogram. ANESTHESIA: moderate sedation with intravenous Versed 2 mg ,and fentanyle 50 Mcg Sedation start time : 1113 Sedation end time : 1117 EBL: Minimal PROCEDURE INDICATION: The patient with low back pain and radiculitis symptoms unresponsive to conservative treatment. Fluoroscopy was used to optimize visualization of the needle placement and to maximize safety. PROCEDURE DESCRIPTION / TECHNIQUE: The patient was seen and identified in the preoperative area. Risks, benefits, complications including but not limited to infections ,bleeding ,allergic reac tion to the medications ,nerve damage and not complete pain releife , and alternatives were discussed with the patient. The patient agreed to proceed with the procedure and signed the consent. IV was started, and vital signs were stable. Patient was taken to the OR and time out was completed. The patient was placed in the prone position on procedure table and a pillow was placed under the abdomen to reduce lumbar lordosis. The lumbosacral area was prepped and draped in the usual sterile fashion.ere closely monitored during the procedure. Conscious sedation was used during the procedure to decrease patients anxiety. Vital signs was monitered during the entire procedure. Using anterior-posterior fluoroscopy, the L4-5 interlaminar space was identified and the skin over this site was marked and then infiltrated with 1% lidocaine subcutaneously. Subsequently, a 20-gauge Tuohy epidural needle was inserted and advanced toward the epidural space using the ``Loss of resistance technique and guided by AP and lateral fluoroscopy. The correct needle position in the epidural space was verified with the injection of 2 mL of the water soluble contrast dye Isovue 200 contrast and observing an excellent epidurogram with the epidural spread of the dye, after negative aspiration for blood and CSF and in the absence of paresthesias. Again after negative aspiration, a 6 ml mixture containing 80 mg of Depo-medrol ( Preservetive Free ), and 2 ml of preservative free Normal Saline, and 2 ml of preservative free lidocaine 1% solution was injected and a washout of epidurogram was seen. Needle was withdrawn intact, skin was cleansed, and bandages were applied. COMPLICATIONS: None DISPOSITION / PLANS: The patient was placed in a supine position and transferred to the recovery area in a stable condition for observation. There was no evidence of lower extremity motor or sensory deficit after the procedure. Patient was discharged from the recovery room after meeting discharge criteria. Home discharge instructions were given to the patient by the staff. The patient was reexamined prior to discharge. The patient will schedule a follow up in the clinic in 2-4 weeks.
[2022-11-23] MEDS ORDERED: IV FLUID CONTINUATION 800 ML IV ONE (11:23)
[2022-11-23 11:30] VITALS: RESP 16
[2022-11-23 11:57] VITALS: BP 122/74; PULSE 92
--- NOTE | 2022-11-23 12:43 | FL ---
Fluoroscopy History: Fluoroscopy LESI, 1SEC FL TIME, DAP=.[id number]
== END 2022-11-23 12:00 | disposition home or self-care (01) ==
LOC: ORPAIN 09:22
PROVIDERS: ATTEND Specialist
DX: M51.16 Intervertebral disc disorders with radiculopathy, lumbar region (principal); M47.26 Other spondylosis with radiculopathy, lumbar region; Z88.6 Allergy status to analgesic agent
CPT/HCPCS: 62323; J2250; J1040; J3010; Q9966

== ENCOUNTER → 2022-12-15 | Outpatient (CLI) | payer MEDICAID ==
[2022-12-15 12:24] VITALS: BP 130/74; PULSE 96; RESP 18; TEMP 98.1
--- NOTE | 2022-12-15 15:03 | P.PAINPG ---
PQRS Measure Charge Sheet Comment: A 62 yr old female with a history of severe and chronic LBP secondary to lumbar DDD and spondylosis with facet arthropathy without myelopathy presents today for evaluation s/p KRISTINA L4-L5. Pt states she experienced 0% pain relief x 3 wks s/p procedure. Pain level is provoked at 10/10 in intensity, constant, localized in the lumbar spine, throbbing in character w shooting towards the BLEs. Pain is provoked by lifting, bending, twisting. Pain is alleviated with heat, ice, PT x 6 wks in Sep 2022, medications, topiocals, laying on her side, repositioning and rest. Interventional pain procedures completed include KRISTINA L4-5 Patient is currently on Advil, Salon Pas Patient denies any side effects of the medication(s), denies excessive drowsiness or sleepiness, denies suicidal ideation and reports that the current pain medication is helping to control the pain and improve activities of daily living. Patient denies any motor or sensory deficits. Patient denies any fever or night sweats, denies any change in the bowel movements or urination. Physical Examination: -Constitutional: Cooperative. Not in acute distress . - Neurologic: Cranial nerve II to XII intact. No focal neurological deficits. - Psychatric: Alert & oriented x 3. Matching mood & appropriate affect. Judgment and insight intact. - Musculoskeletal: Cervical spine: Muscle bulk/ tone/ strength in the bilateral upper extremities normal Vertebral body tenderness to palpation over Spurling test positive Distraction test positive Facet loading test positive TTP Thoracic spine Muscle bulk / tone/ strength in the bilateral paraspinal muscles normal Vertebral body tender to palpation over Facet loading test positive TTP Lumbar spine: Motor bulk/ tone/ strength lower extremities , thigh and legs : 5/5 Deep tendon reflexes : Normal Knee Jerk. Normal Ankle Jerk . Vertebral body tenderness to palpation over Vasquez Test positive Lumbar Facet Loading Test positive L4-L5, L5-S1 Straight Leg Raise: positive at 30 degrees right side/ left side Gaenslen's Test positive Sacral spine : Severe tenderness over the Sacroiliac joint: right side / left side Range of motion: Flexion of the lumbar spine <60 degrees Range of motion: Extension of the lumbar spine <20 degrees Gaenslen's Test positive right side / left side Zay test: positive right side / left side Thigh Thrust Test positive right side / left side Sacral Thrust Test positive right side / left side Assessment and plan: Chronic LBP secondary to lumbar DDD, spondylosis with facet arthropathy without myelopathy Recommendation of BL facet block of the medial branches L4-L,5 L5-S1 #1. May need a series of injections, up until RFA, for optimal pain relief. Risks, benefits of procedure discussed and pt verbalized understanding. Admits to anticoagulant use or medical history of diabetes. Protocol for discontinuation/ continuation of medications kameron procedure discussed. Minimal anesthesia provided, if clinically indicated, consisting of Versed and Fentanyl. All questions answered. I have spent less than 30 minutes on patient care today. Dr Gaston was available by phone for the evaluation of this patient. The time was used to review the medical records including relevant urine studies and Prescription history (MAPs), review of the available imaging, evaluation and examination of the patient, coordination of care with the medical staff and if applicable referring physicians, as well as creation of the medical record PQRS Narrative: Smoking Status Current every day smoker Hx Alcohol Use (MH) No Home Medications: Ambulatory Orders ALPRAZolam [Xanax] 0.5 mg PO HS PRN 08/16/17 Celecoxib [CeleBREX] 200 mg PO DAILY PRN 08/16/17 Metoclopramide [Reglan] 10 mg PO QID PRN 08/16/17 Nitroglycerin Sl Tabs [Nitrostat] 0.4 mg SUBLINGUAL Q5M PRN 08/16/17 Ondansetron [Zofran] 4 mg PO Q6H PRN 08/16/17 Pantoprazole [Protonix] 40 mg PO AC-BRKFST #30 tab 08/17/17 Cholecalciferol [Vitamin D3 (25 Mcg = 1000 Iu)] 5,000 unit PO DAILY 07/06/19 Loperamide [Imodium] 2 mg PO Q6H PRN #10 capsule 01/29/20 amLODIPine BESYLATE 5 mg PO DAILY 08/21/20 Atorvastatin [Lipitor] 10 mg PO DAILY 10/28/22 Rimegepant Sulfate [Nurtec Odt] 75 mg PO DIRECTED PRN 11/17/22 Controlled Substance Measures - Controlled Substance Measures Is patient prescribed a controlled substance at discharge?: No
== END ==
LOC: PNWHC3 09:51
PROVIDERS: ATTEND Specialist
DX: M51.37 Other intervertebral disc degeneration, lumbosacral region (principal); M47.817 Spondylosis without myelopathy or radiculopathy, lumbosacral region; G89.29 Other chronic pain; F17.200 Nicotine dependence, unspecified, uncomplicated; Z88.6 Allergy status to analgesic agent
CPT/HCPCS: 99211

== ENCOUNTER 2023-01-14 09:12 | Day surgery (SDC) | payer MEDICAID ==
[2023-01-12 15:33] VITALS: BMI 22.4
[2023-01-14] MEDS ORDERED: LACTATED RINGERS 1,000 ML IV SCH (09:26)
[2023-01-14] MEDS ORDERED: LIDOCAINE 1% (10MG/ML) FOR IV START INTRADERMA PRN (09:26)
[2023-01-14 09:37] VITALS: RESP 18; TEMP 97.8
[2023-01-14] MEDS ORDERED: LACTATED RINGERS 1,000 ML IV ONE ×2 (09:37→11:22)
[2023-01-14] MEDS ORDERED: fentaNYL (PF) 50 MCG/ML 2 ML AMP ONE (10:51)
[2023-01-14] MEDS ORDERED: methylPREDNISolone ACETATE 40 MG/ML 1 ML VIAL ONE (10:51)
[2023-01-14] MEDS ORDERED: ROPIVACAINE 5 MG/ML 20 ML AMPULE ONE (10:51)
[2023-01-14] MEDS ORDERED: MIDAZOLAM 2 MG/2 ML VIAL ONE (10:51)
--- NOTE | 2023-01-14 11:10 | P.PCN ---
Date of Procedure: 01/14/23 Procedure(s) Performed: PREOPERATIVE DIAGNOSIS : 1- Lumbar spondylosis with Facet Arthropathy without myelopathy . 2- Lumber degenerative disc disease POSTOPERATIVE DIAGNOSIS: 1- Lumbar spondylosis with Facet Arthropathy without myelopathy . 2- Lumber degenerative disc disease PROCEDURE: Diagnostic bilateral L3 , L4 , and L5 medial branch block under fluoroscopy guidance(fluoroscopy images available in the radiology Department ) ( To target the facet joint between Bilateral L4-5 , and L5-S1 ) ANESTHESIA:, Monitored anesthesia care as per anesthesia department. EBL: Minimal COMPLICATION: None PROCEDURE INDICATION: Chronic low back pain secondary to Facet arthropathy unresponsive to conservative treatment. PROCEDURE DESCRIPTION: the patient was seen and identified in the preop holding area , risks and benefits and possible complications of the procedure and alternative were discussed with the patient, and the patient agreed to proceed with the procedure and signed the consent and vital signs monitored during the procedure and fluoroscopy was used to maximize the benefit and accuracy of the needle placement, and sedation was given to decrease patient anxiety, patient was taken to the procedure room and placed in prone position vital signs monitored in the back prepped with chlorhexidine X3 then under strict sterile technique using a right oblique fluoroscopy ,the junction of the transverse process and the superior articulating process of the right L3 , L4 , and L5 vertebra which corresponding to the fluoroscopy image of the eye of the Sae dog on the block side for the medial branches and subsequently , after local infiltration of skin and subcu tissuies with Ropivacaine 0.5 % , one mL at each level ,then 22-gauge Quincke-type needles , 3 needle was used , each one of them placed at the junction of the base of the transverse process and the superior articular process at the appropriate level, and the needle was advanced until the periosteum contacted, needle placement confirmed with AP oblique and lateral view and after appropriate needle placement confirmed, and after negative aspiration for heme and CSF and there was no paresthesia 1-1/2 mL of Ropivacaine 0.5% mixed with 20 mg Depo-Medrol , then half mL injected at each level after negative aspiration the needle subsequently removed and the same procedure repeated for the left side at left side at L3 , L4 and L5 levels. At the end of the procedure and the needles removed and a bandage applied after the skin was cleaned the cleaning solution patient taken to recovery room in stable condition and monitors in the recovery room for 20-30 minutes and discharged home in stable condition after discharge criteria met and patient will follow up with the pain clinic in 2-4 weeks
[2023-01-14 11:46] VITALS: BP 120/77; PULSE 87
--- NOTE | 2023-01-14 14:05 | FL ---
Fluoroscopy INDICATION: Pain FINDINGS: Fluoroscopy time: 8 seconds. Total dose area product (DAP) in uGy*m?, mGy*cm? (or similar): 0.65789 Images obtained: 4. IMPRESSIONS: 1. Documentation of fluoroscopy.
== END 2023-01-14 11:58 | disposition home or self-care (01) ==
LOC: ORPAIN 09:12
PROVIDERS: ATTEND Specialist
DX: M51.36 Other intervertebral disc degeneration, lumbar region (principal); M47.816 Spondylosis without myelopathy or radiculopathy, lumbar region; G89.29 Other chronic pain; I10 Essential (primary) hypertension; E78.5 Hyperlipidemia, unspecified; F17.200 Nicotine dependence, unspecified, uncomplicated; K21.9 Gastro-esophageal reflux disease without esophagitis; Z88.6 Allergy status to analgesic agent; Z79.899 Other long term (current) drug therapy
CPT/HCPCS: 64494 ×2; 64493; 99152; J2250; J1030; J3010; J2795

== ENCOUNTER → 2023-02-10 | Outpatient (CLI) | payer MEDICAID ==
[2023-02-10 10:11] VITALS: BP 144/71; PULSE 84; RESP 15; TEMP 98.2
--- NOTE | 2023-02-10 14:34 | P.PAINPG ---
PQRS Measure Charge Sheet Comment: A 62 yr old female with a history of severe and chronic LBP secondary to lumbar DDD and spondylosis with facet arthropathy without myelopathy presents today for evaluation s/p BL MBB L3-L5 #1. Pt states she experienced 0% pain relief s/p procedure. Pain level is provoked at 10/10 in intensity, constant, localized in the lumbar spine, stabbing in character w shooting towards the BLEs. Pain is provoked by lifting, bending, twisting. Pain is alleviated with heat, ice, PT x 6 wks in Sep 2022, medications, topicals, laying on her side, repositioning and rest. Oswestry axial pain score of 27. Interventional pain procedures completed include KRISTINA L4-5, BL MBB L3-L5 x1 Patient is currently on Advil, Salon Pas Patient denies any side effects of the medication(s), denies excessive drowsiness or sleepiness, denies suicidal ideation and reports that the current pain medication is helping to control the pain and improve activities of daily living. Patient denies any motor or sensory deficits. Patient denies any fever or night sweats, denies any change in the bowel movements or urination. Physical Examination: -Constitutional: Cooperative. Not in acute distress . - Neurologic: Cranial nerve II to XII intact. No focal neurological deficits. - Psychatric: Alert & oriented x 3. Matching mood & appropriate affect. Judgment and insight intact. - Musculoskeletal: Cervical spine: Muscle bulk/ tone/ strength in the bilateral upper extremities normal Vertebral body tenderness to palpation over Spurling test positive Distraction test positive Facet loading test positive TTP Thoracic spine Muscle bulk / tone/ strength in the bilateral paraspinal muscles normal Vertebral body tender to palpation over Facet loading test positive TTP Lumbar spine: Motor bulk/ tone/ strength lower extremities , thigh and legs : 5/5 Deep tendon reflexes : Normal Knee Jerk. Normal Ankle Jerk . Vertebral body tenderness to palpation over L4, L5 Vasquez Test positive Lumbar Facet Loading Test positive L4-L5, L5-S1 Straight Leg Raise: positive at 30 degrees right side/ left side Gaenslen's Test positive Sacral spine : Severe tenderness over the Sacroiliac joint: right side / left side Range of motion: Flexion of the lumbar spine <60 degrees Range of motion: Extension of the lumbar spine <20 degrees Gaenslen's Test positive right side / left side Zay test: positive right side / left side Thigh Thrust Test positive right side / left side Sacral Thrust Test positive right side / left side Assessment and plan: Chronic LBP secondary to lumbar DDD, spondylosis with facet arthropathy without myelopathy Recommendation of [facility] Trial re: G89.4, M54.16. Video viewed. Script for behavioral health clearance provided. All questions answered. I have spent less than 30 minutes on patient care today. Dr Gaston was available by phone for the evaluation of this patient. The time was used to review the medical records including relevant urine studies and Prescription history (MAPs), review of the available imaging, evaluation and examination of the patient, coordination of care with the medical staff and if applicable referring physicians, as well as creation of the medical record PQRS Narrative: Smoking Status Current every day smoker Hx Alcohol Use (MH) No Home Medications: Ambulatory Orders ALPRAZolam [Xanax] 0.5 mg PO HS PRN 08/16/17 Celecoxib [CeleBREX] 200 mg PO DAILY PRN 08/16/17 Metoclopramide [Reglan] 10 mg PO QID PRN 08/16/17 Nitroglycerin Sl Tabs [Nitrostat] 0.4 mg SUBLINGUAL Q5M PRN 08/16/17 Ondansetron [Zofran] 4 mg PO Q6H PRN 08/16/17 Pantoprazole [Protonix] 40 mg PO AC-BRKFST #30 tab 08/17/17 Cholecalciferol [Vitamin D3 (25 Mcg = 1000 Iu)] 5,000 unit PO DAILY 07/06/19 Loperamide [Imodium] 2 mg PO Q6H PRN #10 capsule 01/29/20 amLODIPine BESYLATE 5 mg PO DAILY 08/21/20 Atorvastatin [Lipitor] 10 mg PO DAILY 10/28/22 Rimegepant Sulfate [Nurtec Odt] 75 mg PO DIRECTED PRN 11/17/22 Controlled Substance Measures - Controlled Substance Measures Is patient prescribed a controlled substance at discharge?: No
== END ==
LOC: PNWHC3 09:32
PROVIDERS: ATTEND Specialist
DX: M51.17 Intervertebral disc disorders with radiculopathy, lumbosacral region (principal); M47.27 Other spondylosis with radiculopathy, lumbosacral region; G89.4 Chronic pain syndrome; F17.200 Nicotine dependence, unspecified, uncomplicated; Z88.6 Allergy status to analgesic agent
CPT/HCPCS: 99211

== ENCOUNTER 2023-03-05 16:30 | Inpatient (IN) | payer MEDICAID ==
[2023-03-05] MEDS ORDERED: ONDANSETRON 4 MG/2 ML VIAL IVP STA (17:00)
[2023-03-05] MEDS ORDERED: MAG HYDROX/AL HYDROX/SIMETH 30 ML, HYOSCYAMINE ELIXIR 10 ML, LIDOCAINE 2% GLYDO JELLY 1... PO STA ×3 (17:00)
[2023-03-05] MEDS ORDERED: SODIUM CHLORIDE 0.9% 1,000 ML IV ONE ×2 (17:01→20:29)
[2023-03-05 17:10] LABS: Basophils # (A) 0.1 k/uL (0-0.2); Basophils % (A) 1 %; Eosinophils # (A) 0.1 k/uL (0-0.7); Eosinophils % (A) 1 %; HCT 48.5 % (34.0-46.0); HGB 17.2 gm/dL (11.4-16.0); Lymphocytes # (A) 1.1 k/uL (1.0-4.8); Lymphocytes % (A) 9 %; MCH 36.8 pg (25.0-35.0); MCHC 35.5 g/dL (31.0-37.0); MCV 103.6 fL (80.0-100.0); Macrocytosis Slight; Mean Platelet Volume 8.2; Monocytes # (A) 0.6 k/uL (0-1.0); Monocytes % (A) 5 %; Neutrophils # (A) 10.6 k/uL (1.3-7.7); Neutrophils % (A) 84 %; Platelet Count 148 k/uL (150-450); RBC 4.68 m/uL (3.80-5.40); RDW 13.5 % (11.5-15.5); WBC 12.7 k/uL (3.8-10.6)
[2023-03-05] MEDS ORDERED: KETOROLAC 15 MG/ML 1 ML VIAL IVP STA (17:27)
[2023-03-05] MEDS ORDERED: METOCLOPRAMIDE 5 MG/ML 2 ML VIAL IVP STA (17:28)
[2023-03-05] MEDS ORDERED: MORPHINE SULFATE 2 MG/ML SYRINGE IVP ONE (18:26)
[2023-03-05 18:39] LABS: African American GFR (CKD) >90 (>60 ml/min/1.73 sqM); Albumin 4.3 g/dL (3.5-5.0); Anion Gap 9 mmol/L; Blood Urea Nitrogen 5 mg/dL (7-17); Calcium 9.4 mg/dL (8.4-10.2); Carbon Dioxide 23 mmol/L (22-30); Chloride 95 mmol/L (98-107); Glucose 110 mg/dL (74-99); Non-African American GFR(CKD) >90 (>60 ml/min/1.73 sqM); Sodium 127 mmol/L (137-145); Total Bilirubin 0.8 mg/dL (0.2-1.3); Total Protein 7.6 g/dL (6.3-8.2)
--- NOTE | 2023-03-05 18:50 | ED ---
General Adult HPI - General Chief complaint: Abdominal Pain Stated complaint: Abd Pain, Back Pain Time Seen by Provider: 03/05/23 16:47 Source: patient, RN notes reviewed Mode of arrival: wheelchair Limitations: no limitations - History of Present Illness Initial comments: 62-year-old female with past medical history significant for back pain and gastroparesis presents to the emergency department with a chief complaint abdominal pain. Patient presents with generalized abdominal pain, nausea, vomiting for the last 3 days. She denies eating anything out of her regular diet. No one else is sick at home. She does report she still has her appendix and gallbladder. She's been taking her medications as prescribed. She denies any known fevers, cough, chest pain, shortness of breath, flank pain, melena, hematochezia. - Related Data Home Medications Medication Instructions Recorded Confirmed ALPRAZolam [Xanax] 0.5 mg PO HS PRN 08/16/17 03/06/23 Celecoxib [CeleBREX] 200 mg PO DAILY PRN 08/16/17 03/06/23 Metoclopramide [Reglan] 10 mg PO QID PRN 08/16/17 03/06/23 Nitroglycerin Sl Tabs [Nitrostat] 0.4 mg SUBLINGUAL Q5M PRN 08/16/17 03/06/23 Ondansetron [Zofran] 4 mg PO Q6H PRN 08/16/17 03/06/23 Cholecalciferol [Vitamin D3 (25 5,000 unit PO DAILY 07/06/19 03/06/23 Mcg = 1000 Iu)] amLODIPine BESYLATE 5 mg PO DAILY 08/21/20 03/06/23 Atorvastatin [Lipitor] 10 mg PO HS 10/28/22 03/06/23 Meloxicam [Mobic] 15 mg PO DAILY 03/06/23 03/06/23 Previous Rx's Medication Instructions Recorded Pantoprazole [Protonix] 40 mg PO AC-BRKFST #30 tab 08/17/17 Loperamide [Imodium] 2 mg PO Q6H PRN #10 capsule 01/29/20 Allergies Allergy/AdvReac Type Severity Reaction Status Date / Time aspirin AdvReac Abdominal Verified 03/06/23 12:12 Pain Review of Systems ROS Statement: Those systems with pertinent positive or pertinent negative responses have been documented in the HPI. ROS Other: All systems not noted in ROS Statement are negative. Past Medical History Past Medical History: Cancer, GERD/Reflux, Hypertension, Osteoarthritis (OA), Pneumonia Additional Past Medical History / Comment(s): , gastroparesis. "was told she had shingles as a baby and was hospitalizeD" hiatal Hernia, diverticulitous, coliitis, cervical cancer 1989(had laser sx) endometreosis(partail hysterectomy done) History of Any Multi-Drug Resistant Organisms: None Reported Past Surgical History: Hysterectomy, Orthopedic Surgery Additional Past Surgical History / Comment(s): partial hysterectomy, egd/colonoscopy/polypectomy-benign, few d&c's from miscarriages,laser sx for cervical cancer. RT SHOULDER SX, Past Anesthesia/Blood Transfusion Reactions: No Reported Reaction Past Psychological History: No Psychological Hx Reported Smoking Status: Current every day smoker Past Alcohol Use History: Occasional Past Drug Use History: None Reported - Past Family History Mother Family Medical History: Cancer Additional Family Medical History / Comment(s): lung/colon cancer Father Family Medical History: AFIB, Congestive Heart Failure (CHF), COPD, Hypertension, Osteoarthritis (OA) General Exam - General Exam Comments Initial Comments: General: Alert, in no acute distress Head: atraumatic normocephalic. Eyes PERRL, EOMI intact, mucous membranes moist Respiratory: Lungs clear to auscultation bilaterally Cardiovascular: Heart rate regular rate and rhythm Abdominal: Soft without guarding or rebound, generlaized abdominal tenderness Extremities: Normal inspection with full range of motion and normal capillary refill Neuroogic: alert and oriented 3, CN II-XII intact, able to ambulate with steady gait Skin: warm dry and intact with normal color Limitations: no limitations Course Vital Signs 03/05/23 03/05/23 03/05/23 16:31 16:46 18:18 Temperature 98.0 F 98.4 F 97.6 F Pulse Rate 80 73 74 Respiratory 20 20 17 Rate Blood Pressure 140/88 152/86 151/83 O2 Sat by Pulse 98 92 L 97 Oximetry 03/05/23 03/05/23 03/06/23 21:04 22:07 03:00 Temperature 98.1 F Pulse Rate 75 71 80 Respiratory 20 20 18 Rate Blood Pressure 145/85 152/82 151/83 O2 Sat by Pulse 97 97 100 Oximetry 03/06/23 06:30 Temperature 98.2 F Pulse Rate 80 Respiratory 18 Rate Blood Pressure 154/78 O2 Sat by Pulse 98 Oximetry Medical Decision Making - Medical Decision Making Was pt. sent in by a medical professional or institution ([facility], [employer], urgent care, hospital, or senior care...) When possible be specific @ -[No] Did you speak to anyone other than the patient for history (EMS, parent, family, police, friend...)? What history was obtained from this source @ -[No] Did you review nursing and triage notes (agree or disagree)? Why? @ -[I reviewed and agree with nursing and triage notes] Were old charts reviewed (outside hosp., previous admission, EMS record, old EKG, old radiological studies, urgent care reports/EKG's, senior care records)? Report findings @ -[No old charts were reviewed] Differential Diagnosis (chest pain, altered mental status, abdominal pain women, abdominal pain men, vaginal bleeding, weakness, fever, dyspnea, syncope, h eadache, dizziness, GI bleed, back pain, seizure, CVA, palpatations, mental health, musculoskeletal)? @ -[not applicable] EKG interpreted by me (3pts min.). @ -[As above] X-rays interpreted by me (1pt min.). @ -[None done] CT interpreted by me (1pt min.). @ -[None done] U/S interpreted by me (1pt. min.). @ -[None done] What testing was considered but not performed or refused? (CT, X-rays, U/S, labs)? Why? @ -[None] What meds were considered but not given or refused? Why? @ -[None] Did you discuss the management of the patient with other professionals (professionals i.e. [facility] Jackman, [employer], lab, RT, psych nurse, social worker psychiatric, pet technologist, teacher, health promotion officer, piano case and bench assembler)? Give summary @ -[No] Was smoking cessation discussed for >3mins.? @ -[No] Was critical care preformed (if so, how long)? @ -[No] Were there social determinants of health that impacted care today? How? (Homelessness, low income, unemployed, alcoholism, drug addiction, transportation, low edu. Level, literacy, decrease access to med. care, custodial, rehab)? @ -[No] Was there de-escalation of care discussed even if they declined (Discuss DNR or withdrawal of care, Hospice)? DNR status @ -[No] What co-morbidities impacted this encounter? (DM, HTN, Smoking, COPD, CAD, Ca ncer, CVA, ARF, Chemo, Hep., AIDS, mental health diagnosis, sleep apnea, morbid obesity)? @ -[None] Was patient admitted / discharged? Hospital course, mention meds given and route, prescriptions, significant lab abnormalities, going to OR and other pertinent info. @ -Admission. This is a pleasant 62-year-old female with a past m edical history significant For chronic back pain who presents the emergency department with a chief complaint of abdominal pain. Patient had a thorough history and physical exam performed on the ED. Abdominal exam reveals a soft with generalized tenderness abdomen. No rebound no guarding. Patient had lab work and imaging performed. Interpreted the following laboratories and imaging studies: Labs revealed: WBC 12.7, hemoglobin 17.2 sodium 127, chloride 95 UN 5, creatinine 0.67 lactic acid 1.4 lipase 8149. Urinalysis negative Covid influenza and RSV results negative Ultrasound of the gallbladder reveals mild prominence of the pancreatic duct and common bile duct CT abdomen and pelvis reveals fluid in the retroperitoneum around the pancreas with additional signs within the paracolic gutters and small amount within the pelvis there is some mild ileus present the Fundus and Body of the Stomach Discuss results in detail with the patient verbalized understanding and all questions were addressed. She is agreeable to plan for admission for fluids and pain management. Discussed with ED[facility] Waldrop who agrees and accepts the patient for further observation. Case discussed with ERI Petersen who agrees with plan of care Undiagnosed new problem with uncertain prognosis? @ -[No] Drug Therapy requiring intensive monitoring for toxicity (Heparin, Nitro, Insulin, Cardizem)? @ -[No] Were any procedures done? @ -[No] Diagnosis/symptom? @ -Abdominal pain - Acute Pancreatitis Acute, or Chronic, or Acute on Chronic? @ -Acute Uncomplicated (without systemic symptoms) or Complicated (systemic symptoms)? @ -Uncomplicated Side effects of treatment? @ -[No] Exacerbation, Progression, or Severe Exacerbation? @ -[No] Poses a threat to life or bodily function? How? (Chest pain, [place], [place], pneumonia, PE, COPD, DKA, ARF, appy, cholecystitis, CVA, Diverticulitis, Homicidal, Suicidal, threat to staff... and all critical care pts) @ -Moderate likelihood - Lab Data Result diagrams: 03/06/23 06:49 03/06/23 06:49 Lab Results 03/05/23 03/05/23 03/05/23 Range/Units 16:58 16:58 18:06 WBC 12.7 H (3.8-10.6) k/uL RBC 4.68 (3.80-5.40) m/uL Hgb 17.2 H (11.4-16.0) gm/dL Hct 48.5 H (34.0-46.0) % MCV 103.6 H (80.0-100.0) fL MCH 36.8 H (25.0-35.0) pg MCHC 35.5 (31.0-37.0) g/dL RDW 13.5 (11.5-15.5) % Plt Count 148 L (150-450) k/uL MPV 8.2 Neutrophils % 84 % Lymphocytes % 9 % Monocytes % 5 % Eosinophils % 1 % Basophils % 1 % Neutrophils # 10.6 H (1.3-7.7) k/uL Lymphocytes # 1.1 (1.0-4.8) k/uL Monocytes # 0.6 (0-1.0) k/uL Eosinophils # 0.1 (0-0.7) k/uL Basophils # 0.1 (0-0.2) k/uL Macrocytosis Slight Sodium (137-145) mmol/L Potassium (3.5-5.1) mmol/L Chloride (98-107) mmol/L Carbon Dioxide (22-30) mmol/L Anion Gap mmol/L BUN (7-17) mg/dL Creatinine (0.52-1.04) mg/dL Est GFR (CKD-EPI)AfAm (>60 ml/min/1.73 sqM) Est GFR (CKD-EPI)NonAf (>60 ml/min/1.73 sqM) Glucose (74-99) mg/dL Plasma Lactic Acid Phi 1.4 (0.7-2.0) mmol/L Calcium (8.4-10.2) mg/dL Total Bilirubin (0.2-1.3) mg/dL AST (14-36) U/L ALT (4-34) U/L Alkaline Phosphatase (38-126) U/L Total Protein (6.3-8.2) g/dL Albumin (3.5-5.0) g/dL Lipase (23-300) U/L Urine Color Urine Appearance (Clear) Urine pH (5.0-8.0) Ur Specific [place] (1.001-1.035) Urine Protein (Negative) Urine Glucose (UA) (Negative) Urine Ketones (Negative) Urine Blood (Negative) Urine Nitrite (Negative) Urine Bilirubin (Negative) Urine Urobilinogen (<2.0) mg/dL Ur Leukocyte Esterase (Negative) Urine RBC (0-5) /hpf Urine WBC (0-5) /hpf Ur Squamous Epith Cells (0-4) /hpf Hyaline Casts (0-2) /lpf Granular Casts (0) /lpf Urine Mucus (None) /hpf Influenza Type A (PCR) Not Detected (Not Detectd) Influenza Type B (PCR) Not Detected (Not Detectd) RSV (PCR) Not Detected (Not Detectd) SARS-CoV-2 (PCR) Not Detected (Not Detectd) 03/05/23 03/05/23 Range/Units 18:06 18:14 WBC (3.8-10.6) k/uL RBC (3.80-5.40) m/uL Hgb (11.4-16.0) gm/dL Hct (34.0-46.0) % MCV (80.0-100.0) fL MCH (25.0-35.0) pg MCHC (31.0-37.0) g/dL RDW (11.5-15.5) % Plt Count (150-450) k/uL MPV Neutrophils % % Lymphocytes % % Monocytes % % Eosinophils % % Basophils % % Neutrophils # (1.3-7.7) k/uL Lymphocytes # (1.0-4.8) k/uL Monocytes # (0-1.0) k/uL Eosinophils # (0-0.7) k/uL Basophils # (0-0.2) k/uL Macrocytosis Sodium 127 L (137-145) mmol/L Potassium 4.8 (3.5-5.1) mmol/L Chloride 95 L (98-107) mmol/L Carbon Dioxide 23 (22-30) mmol/L Anion Gap 9 mmol/L BUN 5 L (7-17) mg/dL Creatinine 0.67 (0.52-1.04) mg/dL Est GFR (CKD-EPI)AfAm >90 (>60 ml/min/1.73 sqM) Est GFR (CKD-EPI)NonAf >90 (>60 ml/min/1.73 sqM) Glucose 110 H (74-99) mg/dL Plasma Lactic Acid Phi (0.7-2.0) mmol/L Calcium 9.4 (8.4-10.2) mg/dL Total Bilirubin 0.8 (0.2-1.3) mg/dL AST 34 (14-36) U/L ALT 19 (4-34) U/L Alkaline Phosphatase 114 (38-126) U/L Total Protein 7.6 (6.3-8.2) g/dL Albumin 4.3 (3.5-5.0) g/dL Lipase 8149 H (23-300) U/L Urine Color Light Red Urine Appearance Clear (Clear) Urine pH 6.0 (5.0-8.0) Ur Specific [place] 1.027 (1.001-1.035) Urine Protein 2+ H (Negative) Urine Glucose (UA) Negative (Negative) Urine Ketones 1+ H (Negative) Urine Blood Trace H (Negative) Urine Nitrite Negative (Negative) Urine Bilirubin Negative (Negative) Urine Urobilinogen <2.0 (<2.0) mg/dL Ur Leukocyte Esterase Negative (Negative) Urine RBC 2 (0-5) /hpf Urine WBC 1 (0-5) /hpf Ur Squamous Epith Cells 2 (0-4) /hpf Hyaline Casts 10 H (0-2) /lpf Granular Casts 8 (0) /lpf Urine Mucus Moderate H (None) /hpf Influenza Type A (PCR) (Not Detectd) Influenza Type B (PCR) (Not Detectd) RSV (PCR) (Not Detectd) SARS-CoV-2 (PCR) (Not Detectd) Disposition Clinical Impression: Abdominal pain, Pancreatitis Disposition: ADMITTED IP TO THIS HOSP Condition: Serious Time of Disposition: :41
[2023-03-05 18:57] LABS: ALT 19 U/L (4-34)
[2023-03-05 19:18] LABS: Appearance,Urine Clear (Clear); Bilirubin,Urine Negative (Negative); Blood,Urine Trace (Negative); Color,Urine Light Red; Glucose,Urine (UA) Negative (Negative); Granular Casts,Urine 8 /lpf (0); Hyaline Casts,Urine 10 /lpf (0-2); Ketones,Urine 1+ (Negative); Leukocyte Esterase,Urine Negative (Negative); Mucus,Urine Moderate /hpf; Nitrite,Urine Negative (Negative); Protein,Urine 2+ (Negative); RBC,Urine 2 /hpf (0-5); Specific Gravity,Urine 1.027 (1.001-1.035); Squamous Epithelial Cell,Urine 2 /hpf (0-4); Urobilinogen,Urine <2.0 mg/dL (<2.0); WBC,Urine 1 /hpf (0-5)
[2023-03-05 19:25] LABS: Lipase 8149 U/L (23-300)
[2023-03-05 19:26] LABS: AST 34 U/L (14-36); Potassium 4.8 mmol/L (3.5-5.1)
[2023-03-05 19:27] LABS: Alkaline Phosphatase 114 U/L (38-126)
[2023-03-05] MEDS ORDERED: MORPHINE SULFATE 4 MG/ML SYRINGE IVP STA (20:29)
--- NOTE | 2023-03-05 22:16 | CT ---
EXAMINATION TYPE: CT abdomen pelvis w con DATE OF EXAM: 03/05/2023 COMPARISON: 04/23/2019 INDICATION: Abdomen and back pain. N/V/D x3days. DLP: 521.3 mGycm, Automated exposure control for dose reduction was used. CONTRAST: 100 ml mL of Isovue 300. Study performed without Oral Contrast TECHNIQUE: Axial images were obtained from above the diaphragm to the pubic rami in the axial plane a t 5 mm thick sections. Reconstructed images are reviewed on the computer in the coronal plane. FINDINGS: Limited CT sections are obtained the lung bases. The lung bases are clear. CT ABDOMEN: Liver: Normal Spleen: Normal Pancreas: Some fluid is adjacent to the pancreas. Pancreas density appears normal. No pancreatic duct dilatation is evident. Consider pancreatitis within the differential. Adrenal glands: The adrenal glands are normal. Gallbladder: Normal Kidneys: No masses are evident. No hydronephrosis is present. No cysts are present. Delayed images were obtained through the kidneys, which remain unremarkable. Aorta: Vascular calcification is within the aorta. Inferior vena cava: Normal. CT PELVIS: Some thickening through the stomach wall appears to be present. Duodenum has fluid but otherwise is u nremarkable. Proximal small bowel loops appear normal. There are some fluid-filled more distal small bowel loops. Correlate for ileus. Few diverticuli within the sigmoid colon. Some fluid is in the para colic gutters greater on the left. This study is lateral contrast limiting bowel evaluation. Appendix: Normal as visualized. Urinary bladder: Decompressed. Wall thickening cannot be excluded. This is likely related to nondiste ntion. Genitourinary structures: Uterus and ovaries are not identified. Osseous structures: No suspicious lytic or sclerotic lesions. IMPRESSIONS: 1. Fluid in the retroperitoneum around the pancreas. Additional ascites is within the paracolic gutt ers small amount within the pelvis. Clinical correlation recommended for acute pancreatitis. 2. There is some mild ileus present. 3. Thickened fundus and body of the stomach wall. Additional workup of this finding is recommended.
--- NOTE | 2023-03-05 23:07 | US ---
EXAMINATION TYPE: US gallbladder DATE OF EXAM: 03/05/2023 COMPARISON: Same day CT CLINICAL INDICATION: Female, 62 years old with history of r/out cholithiasis; Pain TECHNIQUE: Multiple sonographic images of the right upper quadrant are obtained. FINDINGS: EXAM MEASUREMENTS: Liver Length: 15.8 cm Gallbladder Wall: 0.1 cm CBD: 0.9 cm Right Kidney: 10.6 x 4.2 x 4.7 cm ADVERTISING TRAFFIC MANAGER NOTES: Pancreas: 4mm pancreatic duct visualized normal 0.2-0.3 cm at the proximal body. Liver: wnl Gallbladder: Lumen clear, wall not thickened Evidence for sonographic Zurita's sign: No CBD: Dilated and 0.9 cm, normal less than 0.6 cm. Right Kidney: wnl IMPRESSION: 1. Mild prominence of the pancreatic duct and common bile duct. Consider ERCP. 2. Findings are less definitive for pancreatitis on the current examination. Clinical management sanjeev mmended.
[2023-03-05] MEDS ORDERED: NALOXONE 0.4 MG/ML 1 ML VIAL IV PRN (23:41)
[2023-03-05] MEDS: SODIUM CHLORIDE 0.9% 1,000 ML IV SCH (23:53)
[2023-03-06] MEDS ORDERED: ALPRAZolam 0.5 MG TAB PO STA
[2023-03-06] MEDS: ONDANSETRON 4 MG/2 ML VIAL IVP PRN ×3 (02:41→18:18)
[2023-03-06] MEDS: MORPHINE SULFATE 4 MG/ML SYRINGE IV PRN ×2 (02:42→06:31)
[2023-03-06 07:24] LABS: Basophils % (A) 0 %; Eosinophils # (A) 0.1 k/uL (0-0.7); Eosinophils % (A) 1 %; HCT 41.9 % (34.0-46.0); Lymphocytes # (A) 1.2 k/uL (1.0-4.8); Lymphocytes % (A) 12 %; MCHC 33.9 g/dL (31.0-37.0); MCV 106.1 fL (80.0-100.0); Macrocytosis Moderate; Mean Platelet Volume 8.1; Monocytes # (A) 0.6 k/uL (0-1.0); Monocytes % (A) 6 %; Neutrophils # (A) 8.4 k/uL (1.3-7.7); Neutrophils % (A) 80 %; Platelet Count 131 k/uL (150-450); RBC 3.94 m/uL (3.80-5.40); RDW 14.2 % (11.5-15.5); WBC 10.4 k/uL (3.8-10.6)
[2023-03-06 07:28] LABS: HGB 14.2 gm/dL (11.4-16.0)
[2023-03-06 07:29] LABS: ALT 18 U/L (4-34); AST 33 U/L (14-36); African American GFR (CKD) >90 (>60 ml/min/1.73 sqM); Albumin 3.8 g/dL (3.5-5.0); Alkaline Phosphatase 99 U/L (38-126); Anion Gap 9 mmol/L; Blood Urea Nitrogen 5 mg/dL (7-17); Carbon Dioxide 21 mmol/L (22-30); Chloride 101 mmol/L (98-107); Glucose 87 mg/dL (74-99); Non-African American GFR(CKD) >90 (>60 ml/min/1.73 sqM); Sodium 131 mmol/L (137-145); Total Bilirubin 0.8 mg/dL (0.2-1.3)
[2023-03-06 08:26] LABS: Lipase 7784 U/L (23-300)
[2023-03-06] MEDS ORDERED: ACETAMINOPHEN TAB 325 MG TAB PO PRN (09:45)
[2023-03-06] MEDS: HYDROmorphone 1 MG/ML 1 ML SYRINGE IVP PRN ×5 (10:14→22:20)
[2023-03-06] MEDS: SODIUM CHLORIDE 0.9% 1,000 ML IV SCH ×2 (10:21→19:39)
[2023-03-06] MEDS ORDERED: METOCLOPRAMIDE 10 MG TAB PO PRN (12:17)
[2023-03-06] MEDS ORDERED: NITROGLYCERIN SL TABS 0.4 MG TAB SUBLINGUAL PRN (12:17)
[2023-03-06] MEDS: NICOTINE 21MG/24HR PATCH TRANSDERM SCH (13:10)
[2023-03-06] MEDS: PANTOPRAZOLE 40 MG TABLET PO SCH (13:10)
[2023-03-06] MEDS: amLODIPine 5 MG TAB PO SCH (13:10)
--- NOTE | 2023-03-06 13:49 | P.HPIM ---
History of Present Illness H&P Date: 03/06/23 * 62-year-old lady with past medical history significant for degenerative disease of spine, history of chronic back pain, hypertension, chronic smoking, anxiety, presented to the emergency department with complaints of abdominal pain nausea and vomiting * Patient had symptom onset about for 3 days with recurrent episode of nausea vomiting and epigastric abdominal pain. Patient denied associated, fever, chills, chest pain, shortness of breath, hematochezia melena or flank pain * Workup initiated in ER including comprehensive metabolic panel which showed hyponatremia, elevated lipase 8149, follow-up lipase 7784. Patient tested negative for while panel including Covid RSV and influenza. * CT abdomen and pelvis was obtained which raise suspicion for pancreatitis. * Ultrasound of gallbladder was obtained which showed mild prominence of pancreatic duct and common bile duct. * Patient admitted with plan for HIDA scan and MRCP and based on results we'll determine if patient will need to be transferred or general surgery evaluation REVIEW OF SYSTEMS: CONSTITUTIONAL: No fever, no malaise, no fatigue. HEENT: No recent visual problems or hearing problems. Denied any sore throat. CARDIOVASCULAR: No chest pain, orthopnea, PND, no palpitations, no syncope. PULMONARY: No shortness of breath, no cough, no hemoptysis. GASTROINTESTINAL: Nausea, vomiting, abdominal pain NEUROLOGICAL: No headaches, no weakness, no numbness. HEMATOLOGICAL: Denies any bleeding or petechiae. GENITOURINARY: Denies any burning micturition, frequency, or urgency. MUSCULOSKELETAL/RHEUMATOLOGICAL: Denies any joint pain, swelling, or any muscle pain. ENDOCRINE: Denies any polyuria or polydipsia. PHYSICAL EXAMINATION: GENERAL: The patient is alert and oriented x3, not in any acute distress. Well developed, well nourished. HEENT: Pupils are round and equally reacting to light. EOMI. No scleral icterus. No conjunctival pallor. Normocephalic, atraumatic. No pharyngeal erythema. No thyromegaly. CARDIOVASCULAR: S1 and S2 present. No murmurs, rubs, or gallops. PULMONARY: Chest is clear to auscultation, no wheezing or crackles. ABDOMEN: Soft, epi gastric tenderness noted MUSCULOSKELETAL: No joint swelling or deformity. EXTREMITIES: No cyanosis, clubbing, or pedal edema. NEUROLOGICAL: Gross neurological examination did not reveal any focal deficits. SKIN: No rashes. Past Medical History Past Medical History: Cancer, GERD/Reflux, Hypertension, Osteoarthritis (OA), Pneumonia Additional Past Medical History / Comment(s): , gastroparesis. "was told she had shingles as a baby and was hospitalizeD" hiatal Hernia, diverticulitous, coliitis, cervical cancer 1989(had laser sx) endometreosis(partail hysterectomy done) History of Any Multi-Drug Resistant Organisms: None Reported Past Surgical History: Hysterectomy, Orthopedic Surgery Additional Past Surgical History / Comment(s): partial hysterectomy, egd/colonoscopy/polypectomy-benign, few d&c's from miscarriages,laser sx for cervical cancer. RT SHOULDER SX, Past Anesthesia/Blood Transfusion Reactions: No Reported Reaction Past Psychological History: No Psychological Hx Reported Smoking Status: Current every day smoker Past Alcohol Use History: Occasional Additional Past Alcohol Use History / Comment(s): started smoking at age of 15 has smoked off and on since.a pack will last 1 to 1.5 days Past Drug Use History: None Reported - Past Family History Mother Family Medical History: Cancer Additional Family Medical History / Comment(s): lung/colon cancer Father Family Medical History: AFIB, Congestive Heart Failure (CHF), COPD, Hypertension, Osteoarthritis (OA) Medications and Allergies Home Medications Medication Instructions Recorded Confirmed Type ALPRAZolam [Xanax] 0.5 mg PO HS PRN 08/16/17 03/06/23 History Celecoxib [CeleBREX] 200 mg PO DAILY PRN 08/16/17 03/06/23 History Metoclopramide [Reglan] 10 mg PO QID PRN 08/16/17 03/06/23 History Nitroglycerin Sl Tabs [Nitrostat] 0.4 mg SUBLINGUAL Q5M PRN 08/16/17 03/06/23 History Ondansetron [Zofran] 4 mg PO Q6H PRN 08/16/17 03/06/23 History Pantoprazole [Protonix] 40 mg PO AC-BRKFST #30 tab 08/17/17 03/06/23 Rx Cholecalciferol [Vitamin D3 (25 5,000 unit PO DAILY 07/06/19 03/06/23 History Mcg = 1000 Iu)] Loperamide [Imodium] 2 mg PO Q6H PRN #10 capsule 01/29/20 03/06/23 Rx amLODIPine BESYLATE 5 mg PO DAILY 08/21/20 03/06/23 History Atorvastatin [Lipitor] 10 mg PO HS 10/28/22 03/06/23 History Meloxicam [Mobic] 15 mg PO DAILY 03/06/23 03/06/23 History Allergies Allergy/AdvReac Type Severity Reaction Status Date / Time aspirin AdvReac Abdominal Verified 03/06/23 12:12 Pain Physical Exam Vitals: Vital Signs Temp Pulse Pulse Resp BP BP Pulse Ox 03/06/23 11:12 98.6 F 67 18 155/71 97 03/06/23 07:03 98.4 F 77 18 164/82 99 03/06/23 06:30 98.2 F 80 18 154/78 98 03/06/23 03:00 80 18 151/83 100 03/05/23 22:07 98.1 F 71 20 152/82 97 03/05/23 21:04 75 20 145/85 97 03/05/23 18:18 97.6 F 74 17 151/83 97 03/05/23 16:46 98.4 F 73 20 152/86 92 L 03/05/23 16:31 98.0 F 80 20 140/88 98 Intake and Output 03/05/23 03/06/23 03/06/23 22:59 06:59 14:59 Other: Voiding Method Toilet Weight 49.895 kg 52.5 kg Results CBC & Chem 7: 03/06/23 06:49 03/06/23 06:49 Labs: Abnormal Lab Results - Last 24 Hours (Table) 03/05/23 03/05/23 03/05/23 Range/Units 16:58 18:06 18:14 WBC 12.7 H (3.8-10.6) k/uL Hgb 17.2 H (11.4-16.0) gm/dL Hct 48.5 H (34.0-46.0) % MCV 103.6 H (80.0-100.0) fL MCH 36.8 H (25.0-35.0) pg Plt Count 148 L (150-450) k/uL Neutrophils # 10.6 H (1.3-7.7) k/uL Sodium 127 L (137-145) mmol/L Chloride 95 L (98-107) mmol/L Carbon Dioxide (22-30) mmol/L BUN 5 L (7-17) mg/dL Glucose 110 H (74-99) mg/dL Lipase 8149 H (23-300) U/L Urine Protein 2+ H (Negative) Urine Ketones 1+ H (Negative) Urine Blood Trace H (Negative) Hyaline Casts 10 H (0-2) /lpf Urine Mucus Moderate H (None) /hpf 03/06/23 03/06/23 Range/Units 06:49 06:49 WBC (3.8-10.6) k/uL Hgb (11.4-16.0) gm/dL Hct (34.0-46.0) % MCV 106.1 H (80.0-100.0) fL MCH 36.0 H (25.0-35.0) pg Plt Count 131 L (150-450) k/uL Neutrophils # 8.4 H (1.3-7.7) k/uL Sodium 131 L (137-145) mmol/L Chloride (98-107) mmol/L Carbon Dioxide 21 L (22-30) mmol/L BUN 5 L (7-17) mg/dL Glucose (74-99) mg/dL Lipase 7784 H (23-300) U/L Urine Protein (Negative) Urine Ketones (Negative) Urine Blood (Negative) Hyaline Casts (0-2) /lpf Urine Mucus (None) /hpf Thrombosis Risk Factor Assmnt - Choose All That Apply Any of the Below Risk Factors Present?: No Other Risk Factors: Yes Each Risk Factor Represents 2 Points: Age 61-74 years Other congenital or acquired thrombophilia - If yes, enter type in comment: No Thrombosis Risk Factor Assessment Total Risk Factor Score: 2 Thrombosis Risk Factor Assessment Level: Low Risk Assessment and Plan Assessment: Assessment and plan * Acute pancreatitis * History of chronic back pain on NSAIDs at home * Generalized anxiety * Gastroesophageal reflux disease * Hypertension * Leukocytosis on admission and reactive * Acute hyponatremia * In regards to pancreatitis, CT abdomen pelvis consistent with pancreatitis, ultrasound gallbladder negative for cholecystitis. Continue patient on IV hydration, advance diet as tolerated. HIDA scan and MRCP ordered follow-up on liver profile * In regards to epigastric discomfort and gastroesophageal reflux disease continue patient on Protonix, answers discontinued continue with pain control with Bronte and IV Dilaudid while inpatient * In regards to hypertension continue patient on amlodipine * In regards to hyponatremia, continue IV fluid and monitor basic metabolic panel * CODE STATUS is no code
[2023-03-06] MEDS: ALPRAZolam 0.5 MG TAB PO PRN (22:21)
[2023-03-07] MEDS: ONDANSETRON 4 MG/2 ML VIAL IVP PRN ×3 (02:44→18:49)
[2023-03-07] MEDS: SODIUM CHLORIDE 0.9% 1,000 ML IV SCH ×3 (02:46→21:02)
[2023-03-07] MEDS: HYDROmorphone 1 MG/ML 1 ML SYRINGE IVP PRN ×6 (02:46→22:12)
[2023-03-07 08:50] LABS: HCT 36.9 % (37.2-50.0); HGB 12.7 d/dL (12.0-17.0); MCH 35.3 pg (27.0-32.0); MCHC 34.4 d/dL (32.0-37.0); MCV 102.5 FL (80.0-97.0); Mean Platelet Volume 10.6 FL (9.5-12.2); NRBC Per 100 WBC 0 X 10*3/uL (0.00-0.01); Platelet Count 99 X 10*3/uL (140-440); RDW 13.8 % (11.5-14.5); WBC 7.46 X 10*3/uL (4.50-10.00)
[2023-03-07 09:06] LABS: ALT 13 U/L (8-49); AST 25 U/L (13-35); Albumin 3.7 d/dL (3.8-4.9); Albumin/Globulin Ratio 1.54 Ratio (1.60-3.17); Alkaline Phosphatase 103 U/L (41-126); Blood Urea Nitrogen 4.4 mg/dL (9.0-27.0); Calcium 8.9 mg/dL (8.7-10.3); Carbon Dioxide 21.4 mmol/L (21.6-31.8); Chloride 99 mmol/L (96-109); Globulin 2.4 d/dL (1.6-3.3); Glucose 52 mg/dL (70-110); Potassium 3.4 mmol/L (3.5-5.5); Sodium 132 mmol/L (135-145); Total Bilirubin 0.6 mg/dL (0.3-1.2); Total Protein 6.1 d/dL (6.2-8.2)
[2023-03-07 09:18] LABS: Lipase 407 U/L (14-63)
--- NOTE | 2023-03-07 09:24 | NM ---
EXAMINATION TYPE: NM hepatobiliary w CCK DATE OF EXAM: 03/07/2023 9:09 AM COMPARISON: CT abdomen pelvis most recent from 03/05/2023 CLINICAL INDICATION:Female, 62 years old with history of Abdominal pain, Eval for cholecystitis; TECHNIQUE: The patient was given 4.91 mCi of Technetium 99m-Mebrofenin as a radiotracer and multiple scintigraphic images were obtained of the abdomen. Gallbladder function was also assessed after the administration of 4 mL of Sincalide (cholecystokinin) and additional scintigraphic images were obtain ed of the abdomen. A region of interest was drawn over the gallbladder and a timing activity curve wa s generated. The gallbladder ejection fraction was calculated. FINDINGS: Normal uptake of radiotracer was identified within the liver with excretion into the hepatic and comm on biliary ducts within 240 seconds . There was normal progressive washout of the liver over the cour se of the study. Radiotracer uptake within the gallbladder at 26 minutes as well as small bowel activ ity was identified at 12 minutes. Maximum calculated gallbladder ejection fraction is: 84% at 26 minutes (Normal gallbladder ejection fraction is > 35%) IMPRESSION: 1. Normal hepatobiliary scan. 2. Normal ejection fraction.
[2023-03-07] MEDS: NICOTINE 21MG/24HR PATCH TRANSDERM SCH (09:31)
[2023-03-07] MEDS: PANTOPRAZOLE 40 MG TABLET PO SCH (09:32)
[2023-03-07] MEDS: amLODIPine 5 MG TAB PO SCH (09:32)
[2023-03-07] MEDS: ENOXAPARIN 40 MG/0.4 ML SYRINGE SQ SCH (09:32)
[2023-03-07] MEDS ORDERED: POTASSIUM CHLORIDE ER 20 MEQ TAB.ER PO STA (15:26)
--- NOTE | 2023-03-07 15:27 | P.GSCN ---
History of Present Illness Consult date: 03/07/23 History of present illness: CHIEF COMPLAINT: Abdominal pain HISTORY OF PRESENT ILLNESS: This is a 62-year-old female who presented to the hospital with complaints of epigastric abdominal pain 6 days. Patient did have nausea and vomiting. She also had reported diarrhea. Diarrhea has resolved as well as the vomiting. She denies any prior history of pancreatitis. She reports occasional alcohol use. No history of gallstones. Gallbladder ultrasound had revealed mild prominence of the pancreatic duct and common bile duct. Findings are less definitive for pancreatitis. Computed tomography scan had shown fluid in the retroperitoneum around the pancreas. Additional studies is within the paracolic gutters in and small amount within the pelvis. Correlation recommended for acute pancreatitis. There is some mild ileus present. Thickened fundus and body of the stomach wall noted. Patient reports her last EGD was about 2 years ago and at that time was diagnosed with gastroparesis. No history of diabetes. Patient reports having bowel movements. Patient reports no new medications. PAST MEDICAL HISTORY: See list. PAST SURGICAL HISTORY: See list. MEDICATIONS: See list. ALLERGIES: See list. SOCIAL HISTORY: No illicit drug use. REVIEW OF SYSTEMS: CONSTITUTIONAL: Denies fever or chills. HEENT: Denies blurred vision, vision changes, or eye pain. Denies hemoptysis ENDOCRINE: Denies heat or cold intolerance. CARDIOVASCULAR: Denies chest pain or pressure. RESPIRATORY: No shortness of breath. GASTROINTESTINAL: Please refer to HPI NEURO: Denies history of seizures. PSYCH: No depression or suicidal ideation HEMATOLOGIC: Denies bleeding disorders. LYMPHATIC: The patient denies any lumps and bumps around the neck. GENITOURINARY: Denies any blood in urine or increased urinary frequency. MUSCULOSKELETAL: Denies myalgias. Denies joint swelling. Denies decreased range of motion beyond patients baseline. SKIN: Denies pruitis. Denies rash. PHYSICAL EXAM: VITAL SIGNS: Reviewed GENERAL: Well-developed in no acute distress. HEENT: No sclera icterus. Extraocular movements grossly intact. Moist buccal mucosa. Head is atraumatic, normocephalic. Hears conversational speech. No nasal drainage. NECK: Supple without lymphadenopathy. CHEST: Non-labored respirations and equal bilateral excursions. CARDIOVASCULAR: Palpable 2+ radial pulses. ABDOMEN: Soft. Nondistended. Epigastric tenderness MUSCULOSKELETAL: No clubbing or cyanosis. NEUROLOGIC: No focal or lateralizing signs. Cranial nerves II through XII grossly intact. PSYCH: Appropriate affect. Alert and oriented to person, place and time. SKIN: Well perfused. Good skin turgor. LABORATORY DATA: WBC 7.46 Hgb 12.7 platelets 99 Sodium is 132 potassium 3.4 creatinine 0.5 Lipase 8149 trending down to 407 IMAGING: Gallbladder ultrasound and computed tomography scan of the abdomen and pelvis as stated above HIDA scan normal hepatobiliary scan. Normal ejection fraction ASSESSMENT: 1. Acute pancreatitis with no evidence of gallstones on ultrasound 2. Prominent pancreatic duct and common bile duct noted on ultrasound 3. Thickened fundus and stomach wall noted on CAT scan 4. Hypokalemia PLAN: -Keep patient nothing by mouth -Continue IV fluids -Continue pain management -EGD scheduled for 03/09/[address] Castro for evaluation of thickened fundus and stomach wall -Follow up on MRI/MRCP of pancreas results -Continue Protonix -Replace potassium Physician Dry Ice Machine Operator note has been reviewed by physician. Signing provider agrees with the documented findings, assessment, and plan of care. Past Medical History Past Medical History: Cancer, GERD/Reflux, Hypertension, Osteoarthritis (OA), Pneumonia Additional Past Medical History / Comment(s): , gastroparesis. "was told she had shingles as a baby and was hospitalizeD" hiatal Hernia, diverticulitous, coliitis, cervical cancer 1989(had laser sx) endometreosis(partail hysterectomy done) History of Any Multi-Drug Resistant Organisms: None Reported Past Surgical History: Hysterectomy, Orthopedic Surgery Additional Past Surgical History / Comment(s): partial hysterectomy, egd/colonoscopy/polypectomy-benign, few d&c's from miscarriages,laser sx for cervical cancer. RT SHOULDER SX, Past Anesthesia/Blood Transfusion Reactions: No Reported Reaction Past Psychological History: No Psychological Hx Reported Smoking Status: Current every day smoker Past Alcohol Use History: Occasional Past Drug Use History: None Reported - Past Family History Mother Family Medical History: Cancer Additional Family Medical History / Comment(s): lung/colon cancer Father Family Medical History: AFIB, Congestive Heart Failure (CHF), COPD, Hypertension, Osteoarthritis (OA) Medications and Allergies Home Medications Medication Instructions Recorded Confirmed Type ALPRAZolam [Xanax] 0.5 mg PO HS PRN 08/16/17 03/06/23 History Celecoxib [CeleBREX] 200 mg PO DAILY PRN 08/16/17 03/06/23 History Metoclopramide [Reglan] 10 mg PO QID PRN 08/16/17 03/06/23 History Nitroglycerin Sl Tabs [Nitrostat] 0.4 mg SUBLINGUAL Q5M PRN 08/16/17 03/06/23 History Ondansetron [Zofran] 4 mg PO Q6H PRN 08/16/17 03/06/23 History Pantoprazole [Protonix] 40 mg PO AC-BRKFST #30 tab 08/17/17 03/06/23 Rx Cholecalciferol [Vitamin D3 (25 5,000 unit PO DAILY 07/06/19 03/06/23 History Mcg = 1000 Iu)] Loperamide [Imodium] 2 mg PO Q6H PRN #10 capsule 01/29/20 03/06/23 Rx amLODIPine BESYLATE 5 mg PO DAILY 08/21/20 03/06/23 History Atorvastatin [Lipitor] 10 mg PO HS 10/28/22 03/06/23 History Meloxicam [Mobic] 15 mg PO DAILY 03/06/23 03/06/23 History Allergies Allergy/AdvReac Type Severity Reaction Status Date / Time aspirin AdvReac Abdominal Verified 03/06/23 12:12 Pain Surgical - Exam Vital Signs Temp Pulse Resp BP Pulse Ox 98.0 F 80 20 140/88 98 03/05/23 16:31 03/05/23 16:31 03/05/23 16:31 03/05/23 16:31 03/05/23 16:31 Results - Labs 03/07/23 05:34 03/07/23 05:34 Abnormal Lab Results - Last 24 Hours (Table) 03/07/23 03/07/23 Range/Units 05:34 05:34 RBC 3.60 L (4.10-5.60) X 10*6/uL Hct 36.9 L (37.2-50.0) % MCV 102.5 H (80.0-97.0) FL MCH 35.3 H (27.0-32.0) pg Plt Count 99 L (140-440) X 10*3/uL Sodium 132 L (135-145) mmol/L Potassium 3.4 L (3.5-5.5) mmol/L Carbon Dioxide 21.4 L (21.6-31.8) mmol/L BUN 4.4 L (9.0-27.0) mg/dL Creatinine 0.5 L (0.6-1.5) mg/dL BUN/Creatinine Ratio 8.80 L (12.00-20.00) Ratio Glucose 52 L (70-110) mg/dL Total Protein 6.1 L (6.2-8.2) d/dL Albumin 3.7 L (3.8-4.9) d/dL Albumin/Globulin Ratio 1.54 L (1.60-3.17) Ratio Lipase 407 H (14-63) U/L Diabetes panel 03/07/23 Range/Units 05:34 Sodium 132 L (135-145) mmol/L Potassium 3.4 L (3.5-5.5) mmol/L Chloride 99 (96-109) mmol/L Carbon Dioxide 21.4 L (21.6-31.8) mmol/L BUN 4.4 L (9.0-27.0) mg/dL Creatinine 0.5 L (0.6-1.5) mg/dL Glucose 52 L (70-110) mg/dL Calcium 8.9 (8.7-10.3) mg/dL AST 25 (13-35) U/L ALT 13 (8-49) U/L Alkaline Phosphatase 103 (41-126) U/L Total Protein 6.1 L (6.2-8.2) d/dL Albumin 3.7 L (3.8-4.9) d/dL Calcium panel 03/07/23 Range/Units 05:34 Calcium 8.9 (8.7-10.3) mg/dL Albumin 3.7 L (3.8-4.9) d/dL Pituitary panel 03/07/23 Range/Units 05:34 Sodium 132 L (135-145) mmol/L Potassium 3.4 L (3.5-5.5) mmol/L Chloride 99 (96-109) mmol/L Carbon Dioxide 21.4 L (21.6-31.8) mmol/L BUN 4.4 L (9.0-27.0) mg/dL Creatinine 0.5 L (0.6-1.5) mg/dL Glucose 52 L (70-110) mg/dL Calcium 8.9 (8.7-10.3) mg/dL Adrenal panel 03/07/23 Range/Units 05:34 Sodium 132 L (135-145) mmol/L Potassium 3.4 L (3.5-5.5) mmol/L Chloride 99 (96-109) mmol/L Carbon Dioxide 21.4 L (21.6-31.8) mmol/L BUN 4.4 L (9.0-27.0) mg/dL Creatinine 0.5 L (0.6-1.5) mg/dL Glucose 52 L (70-110) mg/dL Calcium 8.9 (8.7-10.3) mg/dL Total Bilirubin 0.6 (0.3-1.2) mg/dL AST 25 (13-35) U/L ALT 13 (8-49) U/L Alkaline Phosphatase 103 (41-126) U/L Total Protein 6.1 L (6.2-8.2) d/dL Albumin 3.7 L (3.8-4.9) d/dL
[2023-03-07 19:54] LABS: Glucose,Whole Blood 53 mg/dL (70-110)
[2023-03-07] MEDS ORDERED: DEXTROSE 50% SYRINGE 50 ML IVP ONE (20:15)
[2023-03-07 20:55] LABS: Glucose,Whole Blood 147 mg/dL (70-110)
[2023-03-07] MEDS: DEXTROSE 5%-0.45% NACL 1,000 ML IV SCH (21:01)
[2023-03-07 21:08] LABS: Glucose,Whole Blood 120 mg/dL (70-110)
--- NOTE | 2023-03-07 21:39 | MR ---
EXAMINATION TYPE: MR pancreas / mrcp wo/w con DATE OF EXAM: 03/07/2023 4:02 PM CLINICAL INDICATION:Female, 62 years old with history of Pancreatitis; Pancreatitis. COMPARISON: CT 03/05/2023 TECHNIQUE MRI ABDOMEN WITH CONTRAST: Multiplanar multi-sequence imaging was performed without and wit h IV contrast/gadolinium. The patient was given 5 cc Gadavist gadolinium intravenously and dynamic p ost-VIBE (volumetric interpolated breath-hold gradient recall echo) imaging was performed. IV Contrast: 5 cc Gadavist TECHNIQUE MRCP ABDOMEN WITHOUT CONTRAST: Multi planar, T2-weighted imaging with and without fat satur ation and chemical shift imaging was performed of the abdomen. Then, heavily T2 weighted imaging (olamide f-Fourier acquisition single-shot turbo spin-echo) was utilized in order to study the biliary system. Maximum intensity projection images were reconstructed from the original data of the biliary tree. COMPARISON: No prior studies are available for comparison at [facility]. FINDINGS: MRCP: * The intrahepatic ducts have a normal appearance. * The common bile duct at the level of the pancreatic head measures 6 mm in size. * The common hepatic duct measures 6 mm in size. * The pancreatic duct is prominent measuring up to 4 mm. Pancreatic divisum morphology. * The gallbladder appears unremarkable. LOWER CHEST: No gross irregularity. ABDOMEN Liver: Signal dropout on chemical shift of phase imaging. Gallbladder and Bile ducts: Unremarkable. Pancreas: Peripancreatic high T2 edema as seen on CT 03/05/2023. No peripancreatic organizing fluid col lections are present. No evidence for pancreatic mass. Spleen: Unremarkable. Adrenal glands: Unremarkable. Kidneys: Unremarkable. Stomach and Bowel: Unremarkable as visualized. Peritoneum: No evidence of pneumoperitoneum or free fluid. Vasculature: Unremarkable. No aortic aneurysm. Musculoskeletal: The osseous structures appear intact. Lymph Nodes: No gross evidence for lymphadenopathy. Abdominal wall: Unremarkable. IMPRESSION: 1. No evidence of pancreatic mass, peripancreatic edema compatible with diagnosis of pancreatitis. Co rrelate with serum markers. No organizing fluid collections at this time. 2. Pancreatic division without evidence to suggest ductal stricture or choledocholithiasis 3. Hepatic steatosis
[2023-03-08 00:09] LABS: Glucose,Whole Blood 97 mg/dL (70-110)
[2023-03-08] MEDS: HYDROmorphone 1 MG/ML 1 ML SYRINGE IVP PRN ×7 (01:51→20:59)
[2023-03-08] MEDS: ONDANSETRON 4 MG/2 ML VIAL IVP PRN ×3 (03:07→19:57)
[2023-03-08] MEDS: SODIUM CHLORIDE 0.9% 1,000 ML IV SCH (04:59)
[2023-03-08 06:23] LABS: Glucose,Whole Blood 105 mg/dL (70-110)
[2023-03-08] MEDS: DEXTROSE 5%-0.45% NACL 1,000 ML IV SCH ×2 (08:07→16:27)
[2023-03-08] MEDS: NICOTINE 21MG/24HR PATCH TRANSDERM SCH (08:08)
[2023-03-08] MEDS: amLODIPine 5 MG TAB PO SCH (08:08)
[2023-03-08] MEDS: PANTOPRAZOLE 40 MG TABLET PO SCH (08:08)
[2023-03-08] MEDS: ENOXAPARIN 40 MG/0.4 ML SYRINGE SQ SCH (08:09)
[2023-03-08 10:58] LABS: Blood Urea Nitrogen 3.5 mg/dL (9.0-27.0); Calcium 9.3 mg/dL (8.7-10.3); Chloride 97 mmol/L (96-109); Glucose 90 mg/dL (70-110); Potassium 3.3 mmol/L (3.5-5.5); Sodium 131 mmol/L (135-145)
[2023-03-08] MEDS: PANTOPRAZOLE 40 MG/10 ML VIAL IVP SCH (11:17)
[2023-03-08 11:46] LABS: Glucose,Whole Blood 112 mg/dL (70-110)
[2023-03-08] MEDS ORDERED: Potassium Replacement Protocol 1 EACH MISC MISCELLANE PRN ×2 (12:54→21:20)
[2023-03-08] MEDS ORDERED: Magnesium Replacement Protocol 1 EACH MISC MISCELLANE PRN (12:55)
--- NOTE | 2023-03-08 14:56 | P.PN ---
Subjective Progress Note Date: 03/08/23 CHIEF COMPLAINT: Pancreatitis HISTORY OF PRESENT ILLNESS: Patient continues to have epigastric abdominal pain. Reports nausea. No vomiting. HIDA scan was negative. MRI of pancreas shows no evidence of pancreatic mass, peripancreatic edema compatible with diagnosis of pancreatitis. No organizing fluid collections. Pancreatic division without evidence to suggest stricture or choledocholithiasis. Hepatic steatosis. Afebrile. Sodium is 131 potassium 3.3 lipase pending PHYSICAL EXAM: VITAL SIGNS: Reviewed GENERAL: Well-developed in no acute distress. HEENT: No sclera icterus. Extraocular movements grossly intact. Moist buccal mucosa. Head is atraumatic, normocephalic. Hears conversational speech. No nasal drainage. NECK: Supple without lymphadenopathy. CHEST: Non-labored respirations and equal bilateral excursions. CARDIOVASCULAR: Palpable 2+ radial pulses. ABDOMEN: Soft. Nondistended. Epigastric tenderness MUSCULOSKELETAL: No clubbing or cyanosis. NEUROLOGIC: No focal or lateralizing signs. Cranial nerves II through XII grossly intact. PSYCH: Appropriate affect. Alert and oriented to person, place and time. SKIN: Well perfused. Good skin turgor. ASSESSMENT: 1. Acute pancreatitis with no evidence of gallstones on ultrasound 2. Thickened fundus and stomach wall noted on CAT scan 3. Hypokalemia PLAN: -EGD scheduled for 03/09/[address] Castro for evaluation of thickened fundus and stomach wall -Nothing by mouth -Continue IV fluids -Continue pain management -medicine replacing potassium -Change Protonix to IV Physician Human Resources Team Member note has been reviewed by physician. Signing provider agrees with the documented findings, assessment, and plan of care. Objective - Vital Signs Vital signs: Vital Signs Temp 98.8 F 03/08/23 11:45 Pulse 66 03/08/23 11:45 Resp 18 03/08/23 11:45 BP 126/74 03/08/23 11:45 Pulse Ox 90 L 03/08/23 11:45 FiO2 Intake & Output 03/07/23 03/08/23 03/08/23 18:59 06:59 18:59 Other: Voiding Method Toilet Toilet # Voids 2 3 2 # Bowel Movements 1 - Labs CBC & Chem 7: 03/07/23 05:34 03/08/23 05:36 Labs: Abnormal Lab Results - Last 24 Hours (Table) 03/07/23 03/07/23 03/07/23 Range/Units 19:51 20:34 20:59 Sodium (135-145) mmol/L Potassium (3.5-5.5) mmol/L BUN (9.0-27.0) mg/dL Creatinine (0.6-1.5) mg/dL BUN/Creatinine Ratio (12.00-20.00) Ratio POC Glucose (mg/dL) 53 L 147 H 120 H (70-110) mg/dL 03/08/23 03/08/23 Range/Units 05:36 11:45 Sodium 131 L (135-145) mmol/L Potassium 3.3 L (3.5-5.5) mmol/L BUN 3.5 L (9.0-27.0) mg/dL Creatinine 0.5 L (0.6-1.5) mg/dL BUN/Creatinine Ratio 7.00 L (12.00-20.00) Ratio POC Glucose (mg/dL) 112 H (70-110) mg/dL
--- NOTE | 2023-03-08 15:04 | P.PN ---
Subjective Progress Note Date: 03/08/23 This is 62-year-old female, with past medical history significant for ongoing nicotine dependence, occasional EtOH use gastroesophageal reflux disease colitis, diverticulosis, cervical cancer with laser treatments in 1989, admitted with acute pancreatitis-etiology unclear-ultrasound reported, prominent blunt creatic duct and common bile duct, without evidence of gallstones. CT of abdomen and pelvis reported fluid in the retroperitoneum around the pancreas, additional ascites within the paracolic gutters small amount within the pelvis, mild ileus present, thickened fundus and stomach wall.HIDA scan reported normal hepatobiliary scan was normal ejection fraction. Pancreas MRI reported no evidence of pancreatic mass, peripancreatic edema compatible with diagnosis of pancreatitis, now organizing fluid collections at this time, pancreatic division without evidence to suggest ductal stricture or choledocholithiasis, hepatic steatosis.Reports positive bowel movements. Maintained on IV fluid hydration, pain management-reports abdominal pain unchanged. Lipase trending down, 407 yesterday, currently lipase pending. NPO, scheduled for EGD tomorrow. Objective - Vital Signs Vital signs: Vital Signs Temp 98.8 F 03/08/23 11:45 Pulse 66 03/08/23 11:45 Resp 18 03/08/23 11:45 BP 126/74 03/08/23 11:45 Pulse Ox 90 L 03/08/23 11:45 FiO2 Intake & Output 03/07/23 03/08/23 03/08/23 18:59 06:59 18:59 Other: Voiding Method Toilet Toilet # Voids 2 3 2 # Bowel Movements 1 - Exam PHYSICAL EXAM: VITAL SIGNS: As above GENERAL: Alert and oriented 3, sitting up in bed, no acute distress. No jaundice. HEENT: Conjunctivae normal. eyes normal. No sclera icterus NECK: Supple, No JVD. CARDIOVASCULAR: S1, S2 regular.. No murmur RESPIRATION: Unlabored, Breath sounds diminished in the bases. No rhonchi or crackles. No bronchial breathing. ABDOMEN: Soft, nondistended, diffuse abdominal tenderness . No guarding. Positive bowel sounds LEGS: No edema. no swelling PSYCHIATRY: Alert and oriented X3, mood and affect normal. NERVOUS SYSTEM: Cranial N 2-12 grossly normal. No focal deficits. Strength and sensation grossly intact.. Skin: Warm and dry, no rash - Labs CBC & Chem 7: 03/07/23 05:34 03/08/23 05:36 Labs: Abnormal Lab Results - Last 24 Hours (Table) 03/07/23 03/07/23 03/07/23 Range/Units 19:51 20:34 20:59 Sodium (135-145) mmol/L Potassium (3.5-5.5) mmol/L BUN (9.0-27.0) mg/dL Creatinine (0.6-1.5) mg/dL BUN/Creatinine Ratio (12.00-20.00) Ratio POC Glucose (mg/dL) 53 L 147 H 120 H (70-110) mg/dL 03/08/23 03/08/23 Range/Units 05:36 11:45 Sodium 131 L (135-145) mmol/L Potassium 3.3 L (3.5-5.5) mmol/L BUN 3.5 L (9.0-27.0) mg/dL Creatinine 0.5 L (0.6-1.5) mg/dL BUN/Creatinine Ratio 7.00 L (12.00-20.00) Ratio POC Glucose (mg/dL) 112 H (70-110) mg/dL Assessment and Plan Assessment: Acute pancreatitis, first episode, etiology unclear. Ultrasound reporting no evidence of gallstones, prominent pancreatic duct and common bile duct. CT reporting thickened fundus and stomach wall. EGD pending. Hypokalemia Hyponatremia, mild Ongoing nicotine dependence Occasional EtOH use History of cervical cancer status post laser treatments 1990 Gastroesophageal reflux disease Hypertension Osteoarthritis Plan: Continue on current medication regime ,monitoring and symptomatic treatment. NPO, scheduled for EGD tomorrow. Maintain IV fluid hydration. Electrolyte replacement protocols ordered. Smoking cessation reinforced. The impression and plan of care has been dictated as directed. : I performed a history and examination of this patient, discussed the same with the dictator. I agree with the dictator's note ,documented as a scribe. Any additional findings or plans will be noted.
[2023-03-08] MEDS: POTASSIUM CHLORIDE ER 20 MEQ TAB.ER PO SCH ×4 (16:27→22:35)
[2023-03-08 17:38] LABS: Glucose,Whole Blood 98 mg/dL (70-110)
[2023-03-08] MEDS: ALPRAZolam 0.5 MG TAB PO PRN (20:58)
[2023-03-09 00:01] LABS: Glucose,Whole Blood 122 mg/dL (70-110)
[2023-03-09] MEDS: HYDROmorphone 1 MG/ML 1 ML SYRINGE IVP PRN ×7 (00:20→20:10)
[2023-03-09] MEDS: DEXTROSE 5%-0.45% NACL 1,000 ML IV SCH ×2 (02:46→14:38)
[2023-03-09 06:03] LABS: Glucose,Whole Blood 127 mg/dL (70-110)
[2023-03-09] MEDS: ONDANSETRON 4 MG/2 ML VIAL IVP PRN ×2 (06:29→14:34)
[2023-03-09] MEDS: PANTOPRAZOLE 40 MG/10 ML VIAL IVP SCH (09:18)
[2023-03-09] MEDS: NICOTINE 21MG/24HR PATCH TRANSDERM SCH (09:19)
[2023-03-09] MEDS: amLODIPine 5 MG TAB PO SCH (09:19)
[2023-03-09] MEDS: ENOXAPARIN 40 MG/0.4 ML SYRINGE SQ SCH (09:19)
[2023-03-09 09:41] LABS: BUN/Creat Ratio <5.83 Ratio (12.00-20.00); Blood Urea Nitrogen <3.5 mg/dL (9.0-27.0); Calcium 9.6 mg/dL (8.7-10.3); Carbon Dioxide 23.4 mmol/L (21.6-31.8); Chloride 100 mmol/L (96-109); Glucose 106 mg/dL (70-110); Magnesium 1.5 mg/dL (1.5-2.4); Potassium 4.3 mmol/L (3.5-5.5); Sodium 133 mmol/L (135-145)
[2023-03-09] MEDS ORDERED: LIDOCAINE 2% INJ 20 MG/ML (2 ML VIAL) ONE (11:39)
[2023-03-09] MEDS ORDERED: PROPOFOL 10 MG/ML 20 ML VIAL IV ONE (11:39)
[2023-03-09] MEDS ORDERED: SODIUM CHLORIDE 0.9% 500 ML 500 ML IV ONE ×2 (11:43)
--- NOTE | 2023-03-09 11:57 | P.PCN ---
Date of Procedure: 03/09/23 Description of Procedure: PREOPERATIVE DIAGNOSIS: Abnormal computed tomography scan for gastritis Epigastric abdominal pain POSTOPERATIVE DIAGNOSIS: Gastroesophageal reflux disease. Gastritis. Diaphragmatic hiatal hernia OPERATION: Esophagogastroduodenoscopy with biopsies along antrum and duodenum SURGEON: Vi Castro MD ANESTHESIA: MAC. INDICATIONS: The patient is a 62-year-old female who presents with epigastric abdominal pain, abnormal computed tomography scan for gastric pathology and gastritis. Benefits and risks of the procedure were described. Informed consent was obtained. DESCRIPTION: The patient was brought into the endoscopy suite and laid in the left lateral decubitus position. An Olympus gastroscope was passed along the posterior oropharynx down to the distal esophagus where the squamocolumnar junction was encountered at 35 cm from the incisors. The stomach was entered and no bile reflux was found. Additional findings are listed below. Biopsies with cold forceps were obtained of the antrum. The first through third portion of the duodenum was examined. Retroflexion of the scope confirmed Hill grade 3 lower esophageal valve. The squamocolumnar junction demonstrated LA grade B erosive esophagitis. The stomach was desufflated. The patient tolerated the procedure well. FINDINGS: Squamocolumnar junction 35 cm from the incisors. Diaphragmatic hiatus at 40 cm. Hiatal hernia, 5 cm Hill grade 4 lower esophageal valve. LA grade B erosive esophagitis. Biopsies obtained of the duodenum. Chronic gastritis with biopsies obtained. RECOMMENDATIONS: Upper endoscopy as needed.
[2023-03-09] MEDS ORDERED: Magnesium Replacement Protocol 1 EACH MISC MISCELLANE PRN (12:15)
[2023-03-09 12:30] LABS: Glucose,Whole Blood 103 mg/dL (70-110)
--- NOTE | 2023-03-09 14:44 | P.PN ---
Subjective Progress Note Date: 03/09/23 This is 62-year-old female, with past medical history significant for ongoing nicotine dependence, occasional EtOH use gastroesophageal reflux disease colitis, diverticulosis, cervical cancer with laser treatments in 1989, admitted with acute pancreatitis-etiology unclear-ultrasound reported, prominent blunt creatic duct and common bile duct, without evidence of gallstones. CT of abdomen and pelvis reported fluid in the retroperitoneum around the pancreas, additional ascites within the paracolic gutters small amount within the pelvis, mild ileus present, thickened fundus and stomach wall.HIDA scan reported normal hepatobiliary scan was normal ejection fraction. Pancreas MRI reported no evidence of pancreatic mass, peripancreatic edema compatible with diagnosis of pancreatitis, now organizing fluid collections at this time, pancreatic division without evidence to suggest ductal stricture or choledocholithiasis, hepatic steatosis.Reports positive bowel movements. Maintained on IV fluid hydration, pain management-reports abdominal pain unchanged. Lipase trending down, 407 yesterday, currently lipase pending. NPO, scheduled for EGD tomorrow. 03/09/2023 continues on IV fluid hydration .Reports abdominal pain improving. NPO, scheduled for EGD this morning. Denies chest pain, palpitations or shortness of breath.VSS. Afebrile, labs pending. Objective - Vital Signs Vital signs: Vital Signs Temp 98.8 F 03/09/23 07:21 Pulse 77 03/09/23 07:21 Resp 18 03/09/23 07:21 BP 119/50 03/09/23 07:21 Pulse Ox 90 L 03/09/23 07:21 FiO2 Intake & Output 03/08/23 03/09/23 03/09/23 18:59 06:59 18:59 Intake Total 100 Balance 100 Intake: IV 100 Other: Voiding Method Toilet Toilet # Voids 2 1 - Exam PHYSICAL EXAM: VITAL SIGNS: As above GENERAL: Alert and oriented 3, lying in bed, no acute distress. No jaundice. HEENT: Normocephalic, Conjunctivae normal. eyes normal. No sclera icterus NECK: Supple, No JVD. CARDIOVASCULAR: S1, S2 regular.. No murmur RESPIRATION: Unlabored, equal air entry. Breath sounds diminished in the bases. ABDOMEN: Soft, nondistended, less diffuse abdominal tenderness . No guarding. Positive bowel sounds LEGS: No edema. no swelling NERVOUS SYSTEM: Cranial N 2-12 grossly normal. No focal deficits. Strength and sensation grossly intact. Skin: Warm and dry, no rash - Labs CBC & Chem 7: 03/07/23 05:34 03/09/23 06:26 Labs: Abnormal Lab Results - Last 24 Hours (Table) 03/08/23 03/08/23 03/08/23 Range/Units 05:36 20:22 23:59 Sodium (135-145) mmol/L Potassium 3.2 L (3.5-5.1) mmol/L BUN (9.0-27.0) mg/dL BUN/Creatinine Ratio (12.00-20.00) Ratio POC Glucose (mg/dL) 122 H (70-110) mg/dL Lipase 422 H (14-63) U/L 03/09/23 03/09/23 Range/Units 06:00 06:26 Sodium 133 L (135-145) mmol/L Potassium (3.5-5.1) mmol/L BUN <3.5 L (9.0-27.0) mg/dL BUN/Creatinine Ratio <5.83 L (12.00-20.00) Ratio POC Glucose (mg/dL) 127 H (70-110) mg/dL Lipase (14-63) U/L Assessment and Plan Assessment: Acute pancreatitis, first episode, etiology unclear. Ultrasound reporting no evidence of gallstones, prominent pancreatic duct and common bile duct. CT reporting thickened fundus and stomach wall. EGD pending. Hypokalemia Hyponatremia, mild Ongoing nicotine dependence, smoking cessation reinforced. Occasional EtOH use History of cervical cancer status post laser treatments 1989 Gastroesophageal reflux disease Hypertension Osteoarthritis Plan: Continue on current medication regime ,monitoring and symptomatic treatment. NPO,continue IV fluid hydration, EGD pending. Labs/lipase pending. D ischarge planning in progress possibly for tomorrow pending EGD results. The impression and plan of care has been dictated as directed. : I performed a history and examination of this patient, discussed the same with the dictator. I agree with the dictator's note ,documented as a scribe. Any additional findings or plans will be noted.
[2023-03-09] MEDS: MAGNESIUM SULFATE-D5W PMX 1 GM in DEXTROSE/WATER 1 100ML.BAG IVPB SCH ×2 (16:52→18:24)
[2023-03-09 17:22] LABS: Glucose,Whole Blood 129 mg/dL (70-110)
[2023-03-09] MEDS: oxyCODONE-APAP 5-325MG 1 EACH TAB PO PRN (18:04)
[2023-03-09] MEDS: ALPRAZolam 0.5 MG TAB PO PRN (21:20)
[2023-03-09 23:58] LABS: Glucose,Whole Blood 126 mg/dL (70-110)
[2023-03-10] MEDS: ONDANSETRON 4 MG/2 ML VIAL IVP PRN ×2 (00:07→08:17)
[2023-03-10] MEDS: DEXTROSE 5%-0.45% NACL 1,000 ML IV SCH ×2 (00:14→09:21)
[2023-03-10] MEDS: oxyCODONE-APAP 5-325MG 1 EACH TAB PO PRN ×3 (00:14→12:09)
[2023-03-10] MEDS: HYDROmorphone 1 MG/ML 1 ML SYRINGE IVP PRN ×2 (03:18→08:19)
[2023-03-10 05:51] LABS: Glucose,Whole Blood 131 mg/dL (70-110)
[2023-03-10 08:08] VITALS: BP 129/65; PULSE 74; RESP 16; TEMP 98.6
[2023-03-10] MEDS: amLODIPine 5 MG TAB PO SCH (08:58)
[2023-03-10] MEDS: NICOTINE 21MG/24HR PATCH TRANSDERM SCH (08:58)
[2023-03-10] MEDS: ENOXAPARIN 40 MG/0.4 ML SYRINGE SQ SCH (09:01)
--- NOTE | 2023-03-10 10:49 | P.PN ---
Subjective Progress Note Date: 03/10/23 CHIEF COMPLAINT: Pancreatitis HISTORY OF PRESENT ILLNESS: Patient is up and ambulating in hallway. She does complain of mild epigastric pain but reports that it's less than on admission. She feels ready for discharge. She did tolerate oatmeal this morning. She is status post EGD with results showing GERD, gastritis and diaphragmatic hiatal hernia. Biopsies pending. Afebrile. no new Labs PHYSICAL EXAM: VITAL SIGNS: Reviewed GENERAL: Well-developed in no acute distress. HEENT: No sclera icterus. Extraocular movements grossly intact. Moist buccal mucosa. Head is atraumatic, normocephalic. Hears conversational speech. No nasal drainage. NECK: Supple without lymphadenopathy. CHEST: Non-labored respirations and equal bilateral excursions. CARDIOVASCULAR: Palpable 2+ radial pulses. ABDOMEN: Soft. Nondistended. mild Epigastric tenderness MUSCULOSKELETAL: No clubbing or cyanosis. NEUROLOGIC: No focal or lateralizing signs. Cranial nerves II through XII grossly intact. PSYCH: Appropriate affect. Alert and oriented to person, place and time. SKIN: Well perfused. Good skin turgor. ASSESSMENT: 1. Acute pancreatitis with no evidence of gallstones on ultrasound. Now res olved 2. Thickened fundus and stomach wall noted on CAT scan status post EGD with results showing GERD, gastritis and diaphragmatic hiatal hernia 3. Hypokalemia resolved PLAN: -Patient can be discharged for surgical standpoint -Continue Protonix Physician Rounding Machine Operator note has been reviewed by physician. Signing provider agrees with the documented findings, assessment, and plan of care. Objective - Vital Signs Vital signs: Vital Signs Temp 98.6 F 03/10/23 07:15 Pulse 74 03/10/23 07:15 Resp 16 03/10/23 07:15 BP 129/65 03/10/23 07:15 Pulse Ox 94 L 03/10/23 07:15 FiO2 Intake & Output 03/09/23 03/10/23 03/10/23 18:59 06:59 18:59 Intake Total 100 Balance 100 Intake: IV 100 Other: Voiding Method Toilet Toilet Toilet # Voids 3 1 - Labs CBC & Chem 7: 03/07/23 05:34 03/09/23 06:26 Labs: Abnormal Lab Results - Last 24 Hours (Table) 03/09/23 03/09/2323 Range/Units 00:30 17:21 23:56 POC Glucose (mg/dL) 129 H 126 H (70-110) mg/dL Lipase 222 H (14-63) U/L 03/10/23 Range/Units 05:49 POC Glucose (mg/dL) 131 H (70-110) mg/dL Lipase (14-63) U/L
[2023-03-10 12:15] LABS: Glucose,Whole Blood 104 mg/dL (70-110)
--- NOTE | 2023-03-10 13:46 | P.DS ---
Providers Date of admission: 03/05/23 23:23 Expected date of discharge: 03/17/23 Attending physician: Nolan Mcdaniel Consults: 03/06/23 14:37 Consult Physician Routine Consulting Provider: Vi Castro Consult Reason/Comments: Acute Pancreatitis, HIDA ordered, Eval for GB etiology Do you want consulting provider notified?: Yes Primary care physician: Nolan Mcdaniel Hospital Course: Final Diagnoses: Acute pancreatitis, first episode, etiology unclear. Ultrasound reporting no evidence of gallstones, prominent pancreatic duct and common bile duct. CT reporting thickened fundus and stomach wall. Status post EGD reporting gastroesophageal reflux disease, gastritis and diaphragmatic hiatal hernia. Hypokalemia, resolved Hyponatremia, mild Ongoing nicotine dependence, smoking cessation reinforced. Occasional EtOH use History of cervical cancer status post laser treatments 1989 Gastroesophageal reflux disease Hypertension Osteoarthritis Hypomagnesemia, resolved Hospital course:This is 62-year-old female, with past medical history significant for ongoing nicotine dependence, occasional EtOH use gastroesophageal reflux disease colitis, diverticulosis, cervical cancer with laser treatments in 1989, admitted with acute pancreatitis-etiology unclear- ultrasound reported, prominent pancreatic duct and common bile duct, without evidence of gallstones. CT of abdomen and pelvis reported fluid in the retroperitoneum around the pancreas, additional ascites within the paracolic gutters small amount within the pelvis, mild ileus present, thickened fundus and stomach wall.HIDA scan reported normal hepatobiliary scan was normal ejection fraction. Pancreas MRI reported no evidence of pancreatic mass, peripancreatic edema compatible with diagnosis of pancreatitis, now organizing fluid collections at this time, pancreatic division without evidence to suggest ductal stricture or choledocholithiasis, hepatic steatosis.Reports positive bowel movements. Maintained on IV fluid hydration, pain management-reports abdominal pain unchanged. Lipase trending down, 407 yesterday, currently lipase pending. NPO, scheduled for EGD tomorrow. 03/09/2023 continues on IV fluid hydration .Reports abdominal pain improving. NPO, scheduled for EGD this morning. Denies chest pain, palpitations or shortness of breath.VSS. Afebrile, labs pending. Status post EGD reporting gastroesophageal reflux disease, chronic gastritis- grade B erosive and diaphragmatic hiatal hernia, biopsies pending. Tolerated procedure well. Consuming breakfast this morning with no nausea vomiting or diarrhea. Abdominal discomfort improving daily. Magnesium supplement yesterday and currently up to 1.9. Lipase has trended down to 222. Afebrile. Continue on PPI/ Cleared by general surgery for discharge. Patient will be discharged home today in a stable condition with guarded prognosis. The impression and plan of care has been dictated as directed. : I performed a history and examination of this patient, discussed the same with the dictator. I agree with the dictator's note ,documented as a scribe. Any additional findings or plans will be noted. Patient Condition at Discharge: Stable Plan - Discharge Summary Discharge Rx Participant: Yes New Discharge Prescriptions: New Nicotine 21Mg/24Hr Patch [Habitrol] 1 patch TRANSDERM DAILY patch traMADol HCl [Ultram] 50 mg PO QID 3 Days #12 tab Continue Ondansetron [Zofran] 4 mg PO Q6H PRN PRN Reason: Nausea Nitroglycerin Sl Tabs [Nitrostat] 0.4 mg SUBLINGUAL Q5M PRN PRN Reason: Chest Pain Metoclopramide [Reglan] 10 mg PO QID PRN PRN Reason: Nausea Celecoxib [CeleBREX] 200 mg PO DAILY PRN PRN Reason: Pain ALPRAZolam [Xanax] 0.5 mg PO HS PRN PRN Reason: sleep/anxiety Pantoprazole [Protonix] 40 mg PO AC-BRKFST #30 tab Cholecalciferol [Vitamin D3 (25 Mcg = 1000 Iu)] 5,000 unit PO DAILY Loperamide [Imodium] 2 mg PO Q6H PRN #10 capsule PRN Reason: Diarrhea amLODIPine BESYLATE 5 mg PO DAILY Atorvastatin [Lipitor] 10 mg PO HS Meloxicam [Mobic] 15 mg PO DAILY Discharge Medication List ALPRAZolam [Xanax] 0.5 mg PO HS PRN 08/16/17 [History] Celecoxib [CeleBREX] 200 mg PO DAILY PRN 08/16/17 [History] Metoclopramide [Reglan] 10 mg PO QID PRN 08/16/17 [History] Nitroglycerin Sl Tabs [Nitrostat] 0.4 mg SUBLINGUAL Q5M PRN 08/16/17 [History] Ondansetron [Zofran] 4 mg PO Q6H PRN 08/16/17 [History] Pantoprazole [Protonix] 40 mg PO AC-BRKFST #30 tab 08/17/17 [Rx] Cholecalciferol [Vitamin D3 (25 Mcg = 1000 Iu)] 5,000 unit PO DAILY 07/06/19 [History] Loperamide [Imodium] 2 mg PO Q6H PRN #10 capsule 01/29/20 [Rx] amLODIPine BESYLATE 5 mg PO DAILY 08/21/20 [History] Atorvastatin [Lipitor] 10 mg PO HS 10/28/22 [History] Meloxicam [Mobic] 15 mg PO DAILY 03/06/23 [History] Nicotine 21Mg/24Hr Patch [Habitrol] 1 patch TRANSDERM DAILY patch 03/10/23 [Rx] traMADol HCl [Ultram] 50 mg PO QID 3 Days #12 tab 03/10/23 [Rx] Follow up Appointment(s)/Referral(s): Nolan Mcdaniel DO [Primary Care Provider] - 03/11/23 2:20 pm (appt benita/ Priya)
== END 2023-03-10 13:36 | disposition home or self-care (01) | DRG 439 ==
LOC: EC 16:30 → 5NMEDONC 23:23
PROVIDERS: ADMIT Family Medicine; ATTEND Family Medicine
PROC: 0DB78ZX Excision of Stomach, Pylorus, Via Natural or Artificial Opening Endoscopic, Diagnostic (ICD-10-PCS; 2023-03-09)
PROC: 0DB98ZX Excision of Duodenum, Via Natural or Artificial Opening Endoscopic, Diagnostic (ICD-10-PCS; principal; 2023-03-09 10:30)
DX: K85.90 Acute pancreatitis without necrosis or infection, unspecified (principal); E87.1 Hypo-osmolality and hyponatremia; K56.7 Ileus, unspecified; K22.10 Ulcer of esophagus without bleeding; R18.8 Other ascites; D69.6 Thrombocytopenia, unspecified; E11.43 Type 2 diabetes mellitus with diabetic autonomic (poly)neuropathy; E83.42 Hypomagnesemia; E87.6 Hypokalemia; F17.200 Nicotine dependence, unspecified, uncomplicated; F41.1 Generalized anxiety disorder; I10 Essential (primary) hypertension; K21.9 Gastro-esophageal reflux disease without esophagitis; K29.50 Unspecified chronic gastritis without bleeding; K31.84 Gastroparesis; K44.9 Diaphragmatic hernia without obstruction or gangrene; K76.0 Fatty (change of) liver, not elsewhere classified; M19.90 Unspecified osteoarthritis, unspecified site; Z20.822 Contact with and (suspected) exposure to COVID-19; Z79.1 Long term (current) use of non-steroidal anti-inflammatories (NSAID); Z79.899 Other long term (current) drug therapy; Z80.0 Family history of malignant neoplasm of digestive organs; Z82.49 Family history of ischemic heart disease and other diseases of the circulatory system; Z82.5 Family history of asthma and other chronic lower respiratory diseases; Z85.41 Personal history of malignant neoplasm of cervix uteri; Z90.711 Acquired absence of uterus with remaining cervical stump; Z88.8 Allergy status to other drugs, medicaments and biological substances
CPT/HCPCS: 36415; 43239; 74177; 74183; 76705; 78227; 80048; 80053; 81001; 83605; 83690; 83735; 84132; 85025; 85027; 87636; 88305; 96361; 96374; 96375; 96376; 99285

== ENCOUNTER → 2023-07-05 | Outpatient (CLI) | payer BC, OTHER ==
--- NOTE | 2023-07-07 12:07 | MM ---
Reason for Exam: Screening (asymptomatic). Last mammogram was performed 4 year(s) and 11 month(s) ago. Patient History: Menarche at age 13. First Full-Term at age 18. Hysterectomy at age 43. Postmenopausal. Endometrial cancer. Maternal grandmother had breast cancer. Risk Values: Sloane 5 year model risk: 1.1%. NCI Lifetime model risk: 5.0%. Prior Study Comparison: 08/22/2003 Bilateral Screening Mammogram, [facility]. 10/21/2004 Bilateral Screening Mammogram, [facility]. 08/14/2018 Bilateral Screening Mammogram, [facility]. Tissue Density: The breast tissue is heterogeneously dense. This may lower the sensitivity of mammography. Findings: Analyzed By CAD. There is no suspicious group of microcalcifications or new suspicious mass in either breast. Overall Assessment: Negative, BI-RAD 1 Management: Screening Mammogram of both breasts in 1 year. . Patient should continue monthly self-breast exams. A clinical breast exam by your physician is recommended on an annual basis. This exam should not preclude additional follow-up of suspicious palpable abnormalities. Note on Sloane scores and lifetime risk: 1. A Sloane score greater than 3% is considered moderate risk. If this is the case, consider specialist referral to assess eligibility for a risk reducing agent. 2. If overall lifetime risk for the development of breast cancer is 20% or higher, the patient may qualify for future screening with alternating mammogram and breast MRI. Electronically signed and approved by: Ludin Martinez M.D. Radiologis
== END | disposition home or self-care (01) ==
LOC: RADMAMWWP 14:00
PROVIDERS: ATTEND Family Medicine
DX: Z12.31 Encounter for screening mammogram for malignant neoplasm of breast (principal); Z78.0 Asymptomatic menopausal state; Z80.3 Family history of malignant neoplasm of breast
CPT/HCPCS: 77063; 77067

== ENCOUNTER 2023-11-22 09:01 | Day surgery (SDC) | payer BC, OTHER ==
[2023-11-17 15:13] VITALS: BMI 20.9
[~2023-11-22 09:01] MED LIST changes: -LACTATED RINGERS 1,000 ML IV SCH
[2023-11-22] MEDS: LACTATED RINGERS 1,000 ML IV SCH (09:35)
[2023-11-22] MEDS ORDERED: PROPOFOL 10 MG/ML 20 ML VIAL IV ONE (09:40)
[2023-11-22 09:43] VITALS: TEMP 98.4
--- NOTE | 2023-11-22 09:44 | P.GSHP ---
History of Present Illness H&P Date: 11/22/23 Chief Complaint: Colon cancer screening 63-year-old female here for colonoscopy. Last colonoscopy 4 to 5 years ago. No bowel complaints. Patient has had some weight loss. Some nausea at times. Past Medical History Past Medical History: Cancer, GERD/Reflux, Hypertension, Osteoarthritis (OA), Pneumonia Additional Past Medical History / Comment(s): gastroparesis, hiatal hernia, diverticulitis, colitis, cervical cancer 1989(had laser sx) History of Any Multi-Drug Resistant Organisms: None Reported Past Surgical History: Hysterectomy, Orthopedic Surgery Additional Past Surgical History / Comment(s): D&C, laser sx for cervical cancer, RT SHOULDER SX Past Anesthesia/Blood Transfusion Reactions: No Reported Reaction Past Psychological History: No Psychological Hx Reported Smoking Status: Current every day smoker Past Alcohol Use History: None Reported Additional Past Alcohol Use History / Comment(s): started smoking at age of 15 has smoked off and on since-light smoker Past Drug Use History: None Reported - Past Family History Mother Family Medical History: Cancer Additional Family Medical History / Comment(s): lung/colon cancer Father Family Medical History: AFIB, Congestive Heart Failure (CHF), COPD, Hypertension, Osteoarthritis (OA) Medications and Allergies Home Medications Medication Instructions Recorded Confirmed Type Celecoxib [CeleBREX] 200 mg PO DAILY 08/16/17 11/22/23 History Metoclopramide [Reglan] 10 mg PO QID PRN 08/16/17 11/22/23 History Ondansetron [Zofran] 4 mg PO Q8H PRN 08/16/17 11/22/23 History Pantoprazole [Protonix] 40 mg PO AC-BRKFST #30 tab 08/17/17 11/22/23 Rx amLODIPine BESYLATE 5 mg PO DAILY 08/21/20 11/22/23 History Atorvastatin [Lipitor] 10 mg PO HS 10/28/22 11/22/23 History ALPRAZolam [Xanax] 0.25 mg PO DAILY PRN 11/17/23 11/22/23 History Cholecalciferol (Vitamin D3) 50 mcg PO DAILY 11/17/23 11/22/23 History [Vitamin D3 (50 Mcg = 2000 Iu)] Rimegepant Sulfate [Nurtec Odt] 75 mg PO DIRECTED PRN 11/17/23 11/22/23 History Temazepam [Restoril] 15 mg PO HS PRN 11/17/23 11/22/23 History Allergies Allergy/AdvReac Type Severity Reaction Status Date / Time aspirin AdvReac Nausea & Verified 11/22/23 09:25 Vomiting Surgical - Exam Vital Signs Temp Pulse Resp BP Pulse Ox 98.4 F 80 16 142/74 95 11/22/23 09:30 11/22/23 09:30 11/22/23 09:30 11/22/23 09:30 11/22/23 09:30 Physical exam: General: Well-developed, well-nourished HEENT: Normocephalic, sclerae nonicteric Abdomen: Nontender, nondistended Extremities: No edema Neuro: Alert and oriented Assessment and Plan (1) Colon cancer screening Narrative/Plan: Will proceed with colonoscopy at this time. Current Visit: No Status: Acute Code(s): Z12.11 - ENCOUNTER FOR SCREENING FOR MALIGNANT NEOPLASM OF COLON SNOMED Code(s): 608956357
--- NOTE | 2023-11-22 09:56 | P.PCN ---
Date of Procedure: 11/22/23 Procedure(s) Performed: PREOPERATIVE DIAGNOSIS: Colon cancer screening POSTOPERATIVE DIAGNOSIS: Normal exam PROCEDURE: Colonoscopy ANESTHESIA: MAC SURGEON: Ryan Rivas M.D. SPECIMENS: None ENDOSCOPIC PROCEDURE: The patient was placed on the endoscopy table in the left decubitus position. The Olympus colonoscope was inserted into the anus and passed under direct visualization to the base of the cecum. The appendiceal orifice was visualized. From that point the scope was slowly withdrawn inspecti ng all surfaces carefully. There were no neoplastic inflammatory or polypoid lesions throughout the cecum, ascending, transverse, descending, sigmoid and rectum. There was no visible diverticulosis noted. Digital rectal examination was normal. The patient was taken to the recovery room in stable condition per anesthesia guidelines. RECOMMENDATIONS: Resume diet. Repeat colonoscopy 10 years.
[2023-11-22 10:28] VITALS: BP 127/78; PULSE 78
[2023-11-22 10:29] VITALS: RESP 18
== END 2023-11-22 10:30 | disposition home or self-care (01) ==
LOC: ORWHC2ENDO 09:01
PROVIDERS: ATTEND Surgery
DX: Z12.11 Encounter for screening for malignant neoplasm of colon (principal); I10 Essential (primary) hypertension; K21.9 Gastro-esophageal reflux disease without esophagitis; M19.90 Unspecified osteoarthritis, unspecified site; K85.90 Acute pancreatitis without necrosis or infection, unspecified; J18.9 Pneumonia, unspecified organism; F17.210 Nicotine dependence, cigarettes, uncomplicated; Z79.899 Other long term (current) drug therapy; Z79.1 Long term (current) use of non-steroidal anti-inflammatories (NSAID); Z80.0 Family history of malignant neoplasm of digestive organs; Z85.41 Personal history of malignant neoplasm of cervix uteri; Z88.6 Allergy status to analgesic agent; Z90.710 Acquired absence of both cervix and uterus; Z87.19 Personal history of other diseases of the digestive system
CPT/HCPCS: 45378; J2704

== ENCOUNTER → 2024-02-08 | Outpatient (CLI) | payer BC, OTHER ==
[2024-02-08 12:15] LABS: Basophils # (A) 0.04 X 10*3/uL (0.00-0.10); Basophils % (A) 0.7 %; Eosinophils # (A) 0.06 X 10*3/uL (0.04-0.35); HCT 39.6 % (37.2-50.0); HGB 13.4 g/dL (12.0-17.0); Lymphocytes % (A) 32.5 %; MCH 32.4 pg (27.0-32.0); MCHC 33.8 g/dL (32.0-37.0); MCV 95.7 FL (80.0-97.0); Mean Platelet Volume 10.8 FL (9.5-12.2); Monocytes # (A) 0.41 X 10*3/uL (0.20-1.00); NRBC Per 100 WBC 0 X 10*3/uL (0.00-0.01); Neutrophils % (A) 58.3 %; Platelet Count 190 X 10*3/uL (140-440); RBC 4.14 X 10*6/uL (4.10-5.60); RDW 14.1 % (11.5-14.5); WBC 5.84 X 10*3/uL (4.50-10.00)
[2024-02-08 12:25] LABS: BUN/Creat Ratio 14.57 Ratio (12.00-20.00); Blood Urea Nitrogen 10.2 mg/dL (9.0-27.0); Calcium 9.7 mg/dL (8.7-10.3); Carbon Dioxide 24.6 mmol/L (21.6-31.8); Chloride 100 mmol/L (96-109); Glucose 96 mg/dL (70-110); Potassium 4.7 mmol/L (3.5-5.5); Sodium 136 mmol/L (135-145)
== END | disposition home or self-care (01) ==
LOC: LABPAT 07:08
PROVIDERS: ATTEND Orthopaedic Surgery Hand Surgery
DX: Z01.812 Encounter for preprocedural laboratory examination (principal); G56.02 Carpal tunnel syndrome, left upper limb; M65.312 Trigger thumb, left thumb
CPT/HCPCS: 80048; 85025

== ENCOUNTER 2024-02-15 07:47 | Day surgery (SDC) | payer BC, OTHER ==
--- NOTE | 2024-02-14 13:53 | P.HPOR ---
History of Present Illness H&P Date: 02/14/24 Subjective: This is a 63 year old female that presents today for initial evaluation regarding a several month history of bilateral hand numbness and tingling with associated locking, catching, clicking of the left thumb. She states her left side is worse than her right side. She's tried bracing at nighttime, which is provided minimal relief from her symptoms. She has also tried anti- inflammatories. She has a history of a scaphoid fracture on the right wrist was treated nonoperatively over 20 years ago. She complains of minimal wrist pain today. She states that the thumb, index, middle and ring finger predominantly involved and are nearly constantly numb at this point. Physical Examination: LUE: AIN/PIN/Radial/Ulnar/Median motor intact. Radial/Ulnar/Median SILT. 2+/4 Radial/Ulnar pulses palpated. 5/5 APB, 5/5 FDI. Negative Finkelsteins, negative CMC grind, positive Durkan's compression. TTP over thumb A1 nena with locking. RUE: AIN/PIN/Radial/Ulnar/Median motor intact. Radial/Ulnar/Median SILT. 2+/4 Radial/Ulnar pulses palpated. 5/5 APB, 5/5 FDI. Negative Finkelsteins, negative CMC grind, positive Durkan's compression. Imaging: X-Rays of the left hand 3V taken in office today demonstrates advanced thumb CMC arthritis. X-Rays of the right hand 3V taken in office today demonstrates chronic appearing scaphoid nonunion. Arthritic changes at the radial scaphoid articulation. Impression: 1.) B/L Carpal tunnel syndrome 2.) Left thumb trigger finger Plan: Diagnosis and treatment options were discussed with the patient. She has failed conservative treatment and wishes to proceed with a left endoscopic vs open carpal tunnel release and left thumb A1 nena release. Risks and benefits of surgery including bleeding, infection, damage to surrounding tissue, need for further surgery, possible need to convert to open procedure, residual numbness were discussed and the patient wished to go forward with surgery. The patient was agreeable with this plan. CC: Nolan Mcdaniel DO -Angel Funes DO Orthopedic Hand/Upper Extremity Surgeon Past Medical History Past Medical History: Cancer, GERD/Reflux, Hyperlipidemia, Hypertension, Osteoarthritis (OA), Pneumonia Additional Past Medical History / Comment(s): , gastroparesis. "was told she had shingles as a baby and was hospitalizeD" hiatal Hernia, diverticulitous, coliitis, cervical cancer 1989(had laser sx) endometreosis(partail hysterectomy done) History of Any Multi-Drug Resistant Organisms: None Reported Past Surgical History: Hysterectomy, Orthopedic Surgery Additional Past Surgical History / Comment(s): partial hysterectomy, egd/colonoscopy/polypectomy-benign, few d&c's from miscarriages,laser sx for cervical cancer. RT SHOULDER SX, Past Anesthesia/Blood Transfusion Reactions: No Reported Reaction Smoking Status: Current every day smoker - Past Family History Mother Family Medical History: Cancer Additional Family Medical History / Comment(s): lung/colon cancer Father Family Medical History: AFIB, Congestive Heart Failure (CHF), COPD, Hypertension, Osteoarthritis (OA) Medications and Allergies Home Medications Medication Instructions Recorded Confirmed Type Celecoxib [CeleBREX] 200 mg PO DAILY 08/16/17 02/10/24 History Metoclopramide [Reglan] 10 mg PO QID PRN 08/16/17 02/10/24 History Ondansetron [Zofran] 4 mg PO Q8H PRN 08/16/17 02/10/24 History Pantoprazole [Protonix] 40 mg PO AC-BRKFST #30 tab 08/17/17 02/10/24 Rx amLODIPine BESYLATE 5 mg PO DAILY 08/21/20 02/10/24 History Atorvastatin [Lipitor] 10 mg PO HS 10/28/22 02/10/24 History ALPRAZolam [Xanax] 0.25 mg PO DAILY PRN 11/17/23 02/10/24 History Cholecalciferol (Vitamin D3) 50 mcg PO DAILY 11/17/23 02/10/24 History [Vitamin D3 (50 Mcg = 2000 Iu)] Rimegepant Sulfate [Nurtec Odt] 75 mg PO DIRECTED PRN 11/17/23 02/10/24 History Temazepam [Restoril] 15 mg PO HS PRN 11/17/23 02/10/24 History Allergies Allergy/AdvReac Type Severity Reaction Status Date / Time aspirin AdvReac Nausea & Verified 02/10/24 10:23 Vomiting Physical Examination Osteopathic Statement: *. No significant issues noted on an osteopathic structural exam other than those noted in the History and Physical/Consult.
[~2024-02-15 07:47] MED LIST changes: +HYDROmorphone 0.5 MG/0.5 ML SYRINGE IVP PRN; -LIDOCAINE 1% (10MG/ML) FOR IV START INTRADERMA PRN; +Pre Op ABX Message 1 EACH MISC MISCELLANE ONE; +fentaNYL (PF) 50 MCG/ML 2 ML AMP IV PRN
[2024-02-15 08:09] VITALS: TEMP 98.1
[2024-02-15] MEDS: IV FLUID CONTINUATION 1,000 ML IV ONE (08:10)
[2024-02-15] MEDS: LACTATED RINGERS 1,000 ML IV SCH (08:21)
[2024-02-15] MEDS: DEXAMETHASONE SOD PHOSPHATE 4 MG/ML 1 ML VIAL IV ONE (08:21)
[2024-02-15] MEDS: ONDANSETRON 4 MG/2 ML VIAL IVP ONE (08:21)
[2024-02-15] MEDS ORDERED: PROPOFOL 10 MG/ML 20 ML VIAL IV ONE (08:48)
[2024-02-15] MEDS ORDERED: MIDAZOLAM 2 MG/2 ML VIAL ONE (08:48)
[2024-02-15] MEDS ORDERED: fentaNYL (PF) 50 MCG/ML 2 ML AMP ONE (08:48)
[2024-02-15] MEDS ORDERED: LIDOCAINE 1% INJ 10MG/ML (20 ML MDV) ONE (08:48)
[2024-02-15] MEDS: BUPIVACAINE (PF) 0.5% 30 ML VIAL SQ ONE (08:58)
[2024-02-15] MEDS: LIDOCAINE 2% INJ 20 MG/ML SQ ONE (08:58)
[2024-02-15 09:59] VITALS: BP 176/80; PULSE 77; RESP 14
--- NOTE | 2024-02-15 20:04 | P.OP ---
Date of Procedure: 02/15/24 Preoperative Diagnosis: 1.) Left carpal tunnel syndrome 2.) Left trigger thumb Postoperative Diagnosis: 1.) Left carpal tunnel syndrome 2.) Left trigger thumb Procedure(s) Performed: 1.) Left endoscopic carpal tunnel release 2.) Left trigger thumb A1 nena release Anesthesia: MAC Surgeon: Angel Funes Apparel Merchandiser #1: Oscar Valadez Estimated Blood Loss (ml): 0 Pathology: none sent Condition: stable Disposition: PACU Description of Procedure: This is a 61 year old female who presents today for a left endoscopic carpal tunnel release and left thumb A1 nena release after having failed conservative treatment in the past. Risks and benefits of surgery were discussed with the patient including bleeding, damage to surrounding tissue, infection, need to convert to open procedure, need for further surgery as well as risks of anesthesia including pulmonary embolism and even and the patient wished to proceed with surgical intervention. The patients was seen in the pre-operative area by myself. Consent and H&P were completed and updated. The correct extremity was marked in the pre-operative area by myself and all other questions were answered. Operative Narrative: The patient was brought to the operating room by the department of anesthesia. They remained on the portable stretcher and a rolling hand table was brought to the side of the operative extremity. Pre-operative time out was performed indicating the correct patient, procedure and laterality. All in the room agreed. The patient was then drifted off to sleep by the department of anesthesia. MAC anesthesia was utilized and a 50:50 mixture of 1% Lidocaine and 0.5% bupivacaine was injected into the subcutaneous tissues of the palmar skin, 8ccs total. A nonsterile tourniquet was then applied to the operative extremity and the left upper extremity was then prepped and draped in normal sterile fashion. The operative extremity was the exsanguinated with an esmarch bandage and the tourniquet was inflated to 250mmHg. 15 blade scalpel was utilized to make a transverse incision on the palmar skin just ulnar to the palmaris longus tendon at the level of the distal wrist crease. Ragnell retractor was then placed radially and blunt dissection was pe rformed to reveal the distal forearm fascia. This was lifted with fine Jose pick ups and Littler tenotomy scissors were then used to open the forearm fascia transversely and a double skin hook was then placed. Hamate finder was placed into the carpal tunnel and then sequential sized dilators were inserted followed by the synovial elevator to separate the flexor tenosynovium from the undersurface of the transverse carpal ligament and a washboard texture was felt. The Micro[employer]ire endoscopic carpal tunnel release system gun was the then inserted into the carpal tunnel hugging the deep portion of the transverse carpal ligament in line with the base of the ring finger. Transverse fibers of the ligament were directly visualized. Pressure was applied on the palm to reveal the distal extent of the transverse carpal ligament. The blade was then deployed and the distal half of the transverse carpal ligament was released. The scope was then brought distal again and remaining transverse fibers were incised with the blade. The proximal half of the transverse carpal ligament was then divided and again the scope was advanced distal and remaining transverse fibers were incised with the blade. The radial and ulnar leaflets were directly visualized and mobile consistent with complete release. Tenotomy scissors were then utilized to release the remaining distal forearm fascia under direct visual ization taking care to preserve the palmar cutaneous branch of the median nerve. Skin closure was performed with interrupted 4-0 Monocryl suture followed by steri strips. Transverse incision was made at the base of the thumb overlying the A1 nena. Blunt dissection was taken down to the level of the A1 nena. Ragnell retractors were placed both radially and ulnarly to protect neurovascular bund les. Littler tenotomy scissors were then used to release the A1 nena from proximal to distal under direct visualization. Proximal fascial attachments were released. The tendon was then taken through range of motion and no locking or catching was appreciated. The wound was then closed with interrupted 4-0 nylon sutures in a horizontal mattress fashion. Sterile dressing was applied consisting 4x4s, Webril, and an michael bandage. Tourniquet was let down and the hand immediately was well perfused. The patient was then woken by the department of anesthesia and transferred to PACU in stable condition. Oscar HERNÁNDEZ was present for the case in its entirety and assisted in major portions of the case and protection of vital neurovascular structures. Angel Funes D.O. Orthopedic Hand/Upper Extremity Surgeon
== END 2024-02-15 10:22 | disposition home or self-care (01) ==
LOC: OR 07:47
PROVIDERS: ATTEND Orthopaedic Surgery Hand Surgery
DX: G56.02 Carpal tunnel syndrome, left upper limb (principal); M65.312 Trigger thumb, left thumb; E78.5 Hyperlipidemia, unspecified; I10 Essential (primary) hypertension; K21.9 Gastro-esophageal reflux disease without esophagitis; M19.90 Unspecified osteoarthritis, unspecified site; F17.200 Nicotine dependence, unspecified, uncomplicated; Z79.1 Long term (current) use of non-steroidal anti-inflammatories (NSAID); Z85.41 Personal history of malignant neoplasm of cervix uteri; Z88.6 Allergy status to analgesic agent; Z90.710 Acquired absence of both cervix and uterus
CPT/HCPCS: 29848; 26055; J2001 ×2; J2250; J1100; J2405; J3010; J2704; J0665

== ENCOUNTER → 2025-01-08 | Outpatient (CLI) | payer OTHER ==
--- NOTE | 2025-01-08 14:00 | CTL ---
EXAMINATION TYPE: CT Low Dose Lung DATE OF EXAM ORDERED: 01/08/2025 COMPARISON: None CLINICAL INDICATION: Female, 64 years old with history of F17.210 CURRENT SMOKER Z12.2 SCREENING LUNG CA; PHH, smoker, Lung cancer screening, History of Smoking/tobacco use. TECHNIQUE: Low dose computed tomography scan was performed through the chest at 1 mm thick sections a nd reconstructed images in multiple planes at 1 mm and [address] DLP: 117.[address] CTDI: 3.2 mGy Automated exposure control for dose reduction was used. CT DIAGNOSTIC QUALITY: Satisfactory FINDINGS: EXAMINATION TYPE: CT Low Dose Lung DATE OF EXAM ORDERED: 01/08/2025 CLINICAL INDICATION: Female, 64 years old with history of F17.210 CURRENT SMOKER Z12.2 SCREENING LUNG CA, history of tobacco use, Lung cancer screening CT DLP: 117.[address] CTDI: 3.2 mGy Automated exposure control for dose reduction was used. Comparison: None TECHNIQUE: Low dose computed tomography scan was performed through the chest at 1 mm thick sections a nd reconstructed images in multiple planes at 1 mm and [address] DIAGNOSTIC QUALITY: Satisfactory FINDINGS: There is a 5 mm groundglass nodule in the right upper lobe.. The lungs are clear and there is no abnormal airspace consolidation or interstitial density. There is no mediastinal, hilar or axillary adenopathy. There is no pleural effusion, pleural thickening or pneumothorax. No focal osseous lesions are seen. Limited scans the upper abdomen reveals no gross abnormality IMPRESSION: 1. Lung rads Category 3, probably benign. Follow-up low-dose CT thorax in 6 months is recommended to confirm stability. 2. No acute cardiopulmonary disease. [facility], , 01/08/2025 1:58 PM
== END | disposition home or self-care (01) ==
LOC: RADCTMAIN 13:07
DX: Z12.2 Encounter for screening for malignant neoplasm of respiratory organs (principal); F17.210 Nicotine dependence, cigarettes, uncomplicated
CPT/HCPCS: 71271; 94060; 94726; 94729

== ENCOUNTER 2025-01-11 10:26 | Day surgery (SDC) | payer BC, OTHER ==
[~2025-01-11 10:26] MED LIST changes: -HYDROmorphone 0.5 MG/0.5 ML SYRINGE IVP PRN; +LIDOCAINE 1% (10MG/ML) FOR IV START INTRADERMA PRN; -Pre Op ABX Message 1 EACH MISC MISCELLANE ONE; -fentaNYL (PF) 50 MCG/ML 2 ML AMP IV PRN
[2025-01-11 11:16] VITALS: RESP 16; TEMP 98.1
[2025-01-11] MEDS: LACTATED RINGERS 1,000 ML IV ONE (11:29)
[2025-01-11] MEDS: LACTATED RINGERS 1,000 ML IV SCH (11:29)
[2025-01-11] MEDS ORDERED: LIDOCAINE 1% INJ 10MG/ML (20 ML MDV) ONE (12:25)
[2025-01-11] MEDS ORDERED: PROPOFOL 10 MG/ML 20 ML VIAL IV ONE (12:25)
--- NOTE | 2025-01-11 12:33 | P.PCN ---
Date of Procedure: 01/11/25 Procedure(s) Performed: BRIEF HISTORY: Patient is a 64-year-old, pleasant, white female is about evaluation of chronic intermittent nausea vomiting for the last 2 months duration. History of idiopathic gastroparesis diagnosed about 4 years ago. Currently on Zofran and Reglan as well as Protonix 40 mg daily with some improvement.. PROCEDURE PERFORMED: Esophagogastroduodenoscopy with biopsy. PREOPERATIVE DIAGNOSIS: Chronic intermittent nausea vomiting of 2 months duration. IV sedation per anesthesia. PROCEDURE: After informed consent was obtained, the patient was brought into the endoscopy unit. IV sedation was administered by Anesthesia under continuous monitoring. Initially the Olympus GIF-140 video endoscope was inserted into the mouth. Esophagus intubated without any difficulty. It was gradually advanced into the stomach and duodenum and carefully examined. The bulb and the second pa rt of the duodenum appeared normal. The scope at this time was withdrawn to the stomach, adequately insufflated with air, and upon careful examination, mucosa of the antrum and mild antral gastritis and biopsies were done from this area. Mucosa, body, cardia and the fundus appeared normal. The scope was then withdrawn into the esophagus. The GE junction was located at 39 cm from the incisors. There was a 4 mm tongues of Yu's appearing mucosa just proximal to the GE junction that was biopsied. The rest of the esophagus appeared normal. There were no erosions or ulcerations seen and the patient tolerated the procedure well. IMPRESSION: 1. Mild antral gastritis. 2. 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 RECOMMENDATIONS: The findings of this examination were discussed with the patient as well as her family. She was advised to follow-up with the biopsy results. Continue with Protonix 40 mg daily and Zofran/Reglan as needed. If the biopsy confirms the presence of Yu's esophagus, recommend repeat upper endoscopy in 3 years..
[2025-01-11 13:13] VITALS: BP 141/84; PULSE 78
== END 2025-01-11 13:28 | disposition home or self-care (01) ==
LOC: ORWHC2ENDO 10:26
PROVIDERS: ATTEND Internal Medicine Gastroenterology
DX: K29.50 Unspecified chronic gastritis without bleeding (principal); K20.90 Esophagitis, unspecified without bleeding; K31.84 Gastroparesis; K21.9 Gastro-esophageal reflux disease without esophagitis; I10 Essential (primary) hypertension; E78.5 Hyperlipidemia, unspecified; F17.200 Nicotine dependence, unspecified, uncomplicated; M19.90 Unspecified osteoarthritis, unspecified site; Z98.890 Other specified postprocedural states; Z88.6 Allergy status to analgesic agent; Z79.02 Long term (current) use of antithrombotics/antiplatelets; Z79.899 Other long term (current) drug therapy
CPT/HCPCS: 88305; 43239; J2003; J2704

== ENCOUNTER → 2025-02-05 | Outpatient (CLI) | payer OTHER ==
--- NOTE | 2025-02-05 13:21 | NM ---
EXAMINATION TYPE: NM gastric emptying static DATE OF EXAM: 02/05/2025 COMPARISON: None CLINICAL INDICATION: Female, 64 years old with history of K31.84 GASTROPARESIS; Following administration of 1.97 mCi Tc 99m Sulfur Colloid with 4 OUNCES EGGS, 2 PIECES TOAST WITH BU TTER & JELLY, 6 OUNCES OF WATER, projection images of the abdomen were obtained 15 minutes post inges tion. Patient Emptying Values 1 Hour 12 % (normal 10-70%) 2 Hours 30 % (normal> 40%) 3 Hours 56 % (normal> 70%) 4 Hours 73 % (normal> 90%) Gastroesophagel reflux: None IMPRESSION: Gastric emptying: Delayed gastric emptying. Gastroesophageal reflux: None No scintigraphic evidence for gastroparesis. [facility] Ilya Monroy, , 02/05/2025 1:19 PM
== END | disposition home or self-care (01) ==
LOC: RADNMMAIN 06:38
PROVIDERS: ATTEND Internal Medicine Gastroenterology
DX: K31.84 Gastroparesis (principal)
CPT/HCPCS: 78264; A9541